=== PATIENT | female | born 1990 | race Two or more races ===

== ENCOUNTER 2019-12-28 11:03 | Outpatient (REF) | payer OTHER, SELFPAY ==
[2019-12-28 16:09] LABS: CT PCR NOT DETECTED (Not Detect.); NG PCR NOT DETECTED (Not Detect.)
[2019-12-29 09:49] LABS: BV Int Neg Control Negative (Negative); BV Int Pos Control Positive (Positive)
== END 2019-12-28 11:04 | disposition home or self-care (01) ==
LOC: HO.LAB 11:03
PROVIDERS: Visit Provider Advanced Practice Midwife
DX: N89.8 Other specified noninflammatory disorders of vagina (principal); Z20.2 Contact with and (suspected) exposure to infections with a predominantly sexual mode of transmission; A60.00 Herpesviral infection of urogenital system, unspecified
CPT/HCPCS: 87480; 87491; 87510; 87591; 87660; 99213

== ENCOUNTER 2020-03-04 14:48 | Emergency (ER) | payer OTHER, SELFPAY ==
[2020-03-04 15:42] VITALS: BP 115/58; PULSE 71; RESP 16; TEMP 36.7; O2SAT 100; BMI 37.8
--- NOTE | 2020-03-04 17:24 | ED_ITS ---
HPI - Abdominal Pain General Chief Complaint: Abdominal Pain Stated Complaint: abd pain Time Seen by Provider: 03/04/20 16:43 Source: patient Mode of arrival: ambulatory Limitations: no limitations History of Present Illness HPI narrative: Left-sided/left upper quadrant abdominal pain MD elicited complaint: abdominal pain Pertinent past history: none Onset (ago): day(s) (4) Pain Consistency: constant Location: LUQ Severity: moderate Quality: stabbing Radiation: none Migration to: no migration Relieving factors: nothing Associated symptoms: denies other symptoms Related Data Home Medications Medication Instructions Recorded Confirmed levothyroxine 50 mcg tablet 50 mcg PO DAILY 12/28/19 03/09/20 Previous Rx's Medication Instructions Recorded valacyclovir 500 mg tablet 500 mg PO DAILY #30 tab 12/28/19 ibuprofen 800 mg PO Q8H PRN #20 tab 03/04/20 Allergies Allergy/AdvReac Type Severity Reaction Status Date / Time No Known Allergies Allergy Mild UNKNOWN Verified 03/09/20 09:18 Review of Systems Review of Systems Constitutional: No Weight loss, No Fever, No Chills, No Night Sweats, No Fatigue, No Malaise ENT/Mouth: No Hearing loss, No Ear Pain, No Nasal Congestion, No Sinus Pain, No Hoarseness, No sore throat, No Rhinorrhea, No Swallowing Difficulty Eyes: No Eye Pain, No Swelling, No Redness, No Foreign Body, No Discharge, No Vision Changes Cardiovascular: No Chest Pain, No SOB, No Dyspnea on Exertion, No Orthopnea, No Edema, No Palpitations Respiratory: No Cough, No Sputum, No Wheezing Gastrointestinal: As noted HPI, No Hematochezia, No Melena Genitourinary: no irregular bleeding, No Dysuria, No Urinary Frequency, No Hematuria, No Urinary Incontinence, No Urgency, No Flank Pain Musculoskeletal: No joint pain, No Myalgias, No Joint Swelling Skin: No Skin Lesions, No rash Neuro: No Weakness, No Numbness, No Paresthesias, No Loss of Consciousness, No Dizziness, No Headache Psych: No Social Issues Heme/Lymph: No Bruising, No Bleeding,No Lymphadenopathy Endocrine: No Polyuria, No Polydipsia, No Temperature Intolerance Yes all other systems are reviewed and are negative Physical Exam Vital Signs: Vital Signs: Last Vital Signs Temp 98.3 F 03/04/20 20:51 Pulse 69 03/04/20 20:51 Resp 16 03/04/20 20:51 BP 113/55 L 03/04/20 20:51 Pulse Ox 100 03/04/20 20:51 Body Mass Index 37.8 Reviewed Const: General: cooperative and healthy appearing; No acute distress or intoxicated appearing Nutritional Appearance: average body habitus Orientation/consciousness: patient oriented x3 HENMT: Head: Yes normal to inspection Ears: hearing grossly normal bilaterally Eyes: General: appearance normal, both eyes and all related structures Visual Valencia: normal visual valencia by confrontation Neck: Neck: Yes normal visual inspection, No positive Brudzinski's sign, No positive Kernig's sign and No tender Thyroid: Thyroid normal Chest: Chest palpation & inspection: normal inspection of the chest Resp: Effort & Inspection: normal respiratory effort Auscultation: clear to auscultation bilaterally Cardio: Jugular venous distension: no JVD Rhythm: regular rhythm Heart sounds: S1 normal heart sound present and S2 normal heart sound present GI: Inspection: Yes normal to inspection Palpation (GI): Soft to palpation and Tenderness to palpation present (GI) in the LUQ; with no rebound tenderness Percussion: Yes normal to percussion Auscultation: normal bowel sounds : General: Yes no CVA tenderness Back/Spine/Pelvis: Back: no CVA tenderness Skin: General skin exam: no rashes or lesions noted Neuro: General: patient oriented x3 Extrem: General: Yes normal to inspection Course Course Course Narrative: Labs overall stable. CT negative for acute pathology does show left-sided ovarian cyst. Retroverted uterus. Pain in the left upper quadrant unclear etiology. Mostly in the left upper quadrant does now reveal that she has some bowel issues in relation to having constipation. Advised to increase her fiber intake push fluids. OTC laxative. 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 States no other concern for STI as she has been tested and negative. Offers no complaint of vaginal discharge or bleeding. Will refer for outpatient follow-up. Stable for discharge. MDM - Abdominal Pain Differential Diagnosis Differential diagnosis: Likely abdominal pain, calculus of kidney, pancreatitis and renal colic; Unlikely aortic dissection, acute appendicitis, bowel perforation, constipation, diverticulitis, endometriosis, gastroenteritis, gastritis, mesenteric ischemia, ovarian cyst, peptic ulcer disease and small bowel obstruction Medical Records Attestation: I reviewed the patient's medical records. Lab Data Attestation: I reviewed the patient's lab results. Result diagrams: 03/04/20 18:10 03/04/20 18:10 Labs: Lab Results 03/04/20 03/04/20 03/04/20 Range/Units 18:09 18:10 18:10 WBC 7.0 (4.8-10.8) X10*3/uL RBC 4.73 (4.20-5.50) X10*6/uL Hgb 13.8 (12.0-16.0) g/dl Hct 41.4 (37-47) % MCV 87.5 (80-98) fL MCH 29.2 (27.0-33.0) pg MCHC 33.3 (31.0-35.0) g/dl RDW 13.0 (11.0-16.0) % Plt Count 230 (160-400) X10*3/uL MPV 10.8 (9.4-12.3) fL Immature Gran % (Auto) 0.1 (0.0-0.4) % Neut % (Auto) 51.3 (45-73) % Lymph % (Auto) 39.6 (20-40) % [place] % (Auto) 6.6 (2-11) % Eos % (Auto) 2.1 (0-4) % Baso % (Auto) 0.3 (0-2) % Lymph # (Auto) 2.8 (1.2-4.9) X10*3/uL [place] # (Auto) 0.5 (0.1-1.2) X10*3/uL Eos # (Auto) 0.2 (0.0-0.4) X10*3/uL Baso # (Auto) 0.0 (0.0-0.2) X10*3/uL Abs Immat Gran (auto) 0.01 (0.00-0.03) X10*3/uL Absolute Neuts (auto) 3.6 (2.0-8.3) X10*3/uL Absolute Nucleated RBC 0.000 (0.0-0.012) X10*3/uL Nucleated RBC % (auto) 0.0 (0.0-0.2) /100WBC PT 11.8 (10.8-13.0) SEC INR 1.0 (0.9-1.1) APTT 33.7 (24.1-38.0) SEC Sodium (135-145) mmol/L Potassium (3.3-5.1) mmol/l Chloride (96-108) mmol/L Carbon Dioxide (22-29) mmol/L Anion Gap (12-20) BUN (9-16) mg/dL Creatinine (0.5-1.4) mg/dL Estim Creat Clear Calc Estimated GFR Random Glucose (60-115) mg/dL Calcium (8.4-10.2) mg/dL Total Bilirubin (0.0-1.0) mg/dL AST (5-31) U/L ALT (0-31) U/L Alkaline Phosphatase (39-117) U/L Total Protein (6.5-8.0) g/dL Albumin (3.5-5.0) g/dL Urine Color YELLOW Urine Appearance CLEAR Urine pH 6.0 (5.0-8.0) Ur Specific [place] 1.020 (1.005-1.025) Urine Protein NEG (NEG-TRACE) MG/DL Urine Glucose (UA) NEG (NEG) MG/DL Urine Ketones NEG (NEG) MG/DL Urine Blood NEG (NEG) Urine Nitrite NEG (NEG) Ur Leukocyte Esterase NEG (NEG) Urine RBC 0-2 (0) /HPF Urine WBC 0 (0-4) /HPF Ur Squamous Epith Cells TRACE /LPF Urine Bacteria TRACE /LPF Urine Test NEGATIVE (NEGATIVE) 03/04/20 Range/Units 18:10 WBC (4.8-10.8) X10*3/uL RBC (4.20-5.50) X10*6/uL Hgb (12.0-16.0) g/dl Hct (37-47) % MCV (80-98) fL MCH (27.0-33.0) pg MCHC (31.0-35.0) g/dl RDW (11.0-16.0) % Plt Count (160-400) X10*3/uL MPV (9.4-12.3) fL Immature Gran % (Auto) (0.0-0.4) % Neut % (Auto) (45-73) % Lymph % (Auto) (20-40) % [place] % (Auto) (2-11) % Eos % (Auto) (0-4) % Baso % (Auto) (0-2) % Lymph # (Auto) (1.2-4.9) X10*3/uL [place] # (Auto) (0.1-1.2) X10*3/uL Eos # (Auto) (0.0-0.4) X10*3/uL Baso # (Auto) (0.0-0.2) X10*3/uL Abs Immat Gran (auto) (0.00-0.03) X10*3/uL Absolute Neuts (auto) (2.0-8.3) X10*3/uL Absolute Nucleated RBC (0.0-0.012) X10*3/uL Nucleated RBC % (auto) (0.0-0.2) /100WBC PT (10.8-13.0) SEC INR (0.9-1.1) APTT (24.1-38.0) SEC Sodium 140 (135-145) mmol/L Potassium 4.0 (3.3-5.1) mmol/l Chloride 106 (96-108) mmol/L Carbon Dioxide 26 (22-29) mmol/L Anion Gap 12 (12-20) BUN 10 (9-16) mg/dL Creatinine 0.71 (0.5-1.4) mg/dL Estim Creat Clear Calc 119.9 Estimated GFR > 60 Random Glucose 91 (60-115) mg/dL Calcium 8.9 (8.4-10.2) mg/dL Total Bilirubin 0.8 (0.0-1.0) mg/dL AST 15 (5-31) U/L ALT 21 (0-31) U/L Alkaline Phosphatase 69 (39-117) U/L Total Protein 7.1 (6.5-8.0) g/dL Albumin 4.4 (3.5-5.0) g/dL Urine Color Urine Appearance Urine pH (5.0-8.0) Ur Specific [place] (1.005-1.025) Urine Protein (NEG-TRACE) MG/DL Urine Glucose (UA) (NEG) MG/DL Urine Ketones (NEG) MG/DL Urine Blood (NEG) Urine Nitrite (NEG) Ur Leukocyte Esterase (NEG) Urine RBC (0) /HPF Urine WBC (0-4) /HPF Ur Squamous Epith Cells /LPF Urine Bacteria /LPF Urine Test (NEGATIVE) Imaging Data -abdominal/pelvic abdominal CT with IV contrast: Radiologist's impression: [address] [address] [address] Scan Report Signed Patient: Yolanda Murdokc#: [id number] : 1990Acct:[id number] Age/Sex: 30 / FADM Date: 03/04/20 Loc: HO.ED Attending Dr: Ordering Physician: Aman Gonzalez NP Date of Service: 03/04/20 Procedure(s): CT abdomen pelvis w con Accession Number(s): [id number] cc: Aman Gonzalez NP~ EXAMINATION: CT ABDOMEN AND PELVIS WITH CONTRAST CLINICAL INFORMATION: Left-sided abdominal pain. COMPARISON: None TECHNIQUE: Multidetector volumetric images were obtained from the superior aspect of the liver through the pubic symphysis following administration 85 mL of Omnipaque 350 intravenous contrast. Sagittal and coronal reformatted images were obtained on the technologist's workstation. Oral contrast: No This CT examination was performed using dose optimization techniques as appropriate, variously including the following: *Automated exposure control *Adjustment of mA and/or kV according to patient size (this includes techniques or standardized protocols for targeted exams where dose is matched to indication/reason for exam; i.e. extremities or head) *Use of iterative reconstruction technique DLP: 788 mGy-cm FINDINGS: LUNG BASES: The visualized lung bases are unremarkable. LIVER, GALLBLADDER, AND BILIARY TREE: The liver is normal in size, shape, and attenuation. There are coarse calcifications along the dome of right hepatic lobe without. No focal lesion seen. There is no intrahepatic ductal dilatation. The gallbladder is unremarkable with no evidence of radiopaque gallstones, gallbladder wall thickening, or obvious pericholecystic inflammatory changes. PANCREAS: Unremarkable. SPLEEN: Unremarkable. ADRENAL GLANDS: Unremarkable. KIDNEYS AND URETERS: The kidneys are normal in size, shape, and attenuation. No hydronephrosis, hydroureter, or calculi seen. No perinephric stranding. BLADDER: Unremarkable. GASTROINTESTINAL TRACT: There is scattered stool and gas seen throughout the colon without any significant distention. The small bowel loops are normal caliber. Appendix is normal caliber. ABDOMINAL WALL: No significant hernia is appreciated. LYMPH NODES: Normal. VASCULAR: Unremarkable. PELVIC VISCERA: The uterus is retroverted. There is small left ovarian 1.5 cm cyst. There is no abnormal pelvic or inguinal lymph nodes. There is no free fluid in the cul-de-sac. OSSEOUS STRUCTURES: Unremarkable. CT/CT abdomen pelvis w con IMPRESSION: 1.5 cm left ovarian cyst. Retroverted uterus. There is no radiopaque urolith or hydroureteronephrosis. Dictated By:JASON YUSUF MD Signed By:<Electronically signed by JASON YUSUF MD in OV>03/04/202004 DD/ 53 TD/TT: Tank Refinisher: [facility] [place] Discharge Plan Discharge Clinical Impression: Abdominal pain, Ovarian cyst Patient Disposition: Home, Self-Care Instructions: Ovarian Cyst (ED), Abdominal Pain (ED) Prescriptions: New ibuprofen 800 mg tablet 800 mg PO Q8H PRN (Reason: pain) Qty: 20 RF: 0 No Action levothyroxine 50 mcg tablet 50 mcg PO DAILY RF: 0 valacyclovir [Valtrex] 500 mg tablet 500 mg PO DAILY Qty: 30 RF: 12 Referrals: Physician,Unknown [Primary Care Provider] - 1 week Issac Mjeía MD [Physician] - 2 weeks Interventions: ED Discharge Assessment Last Done: 03/04/20 20:52 Discharge Date/Time: 03/04/20 20:55 Print Language: Romanian [facility] Past Medical History Medical History Genital herpes Hypothyroidism Family History Family History Mother Heart disease Cervical cancer CVD (cardiovascular disease) Maternal Grandmother Diabetes mellitus Cervical cancer Heart disease CVD (cardiovascular disease) Social History Social History Alcohol intake: never Smoking Status: Unknown if ever smoked Gender identity: female
[2020-03-04 17:58] VITALS: BP 106/56; PULSE 70; RESP 16; TEMP 36.7; O2SAT 100
[2020-03-04 18:17] LABS: Basophils Percent Auto 0.3 % (0-2); Eosinophils Absolute Auto 0.2 X10*3/uL (0.0-0.4); Eosinophils Percent Auto 2.1 % (0-4); Hematocrit 41.4 % (37-47); Hemoglobin 13.8 g/dl (12.0-16.0); Imm Gran Abs Auto 0.01 X10*3/uL (0.00-0.03); Imm Gran Pct Auto 0.1 % (0.0-0.4); Lymphocytes Absolute Auto 2.8 X10*3/uL (1.2-4.9); Lymphocytes Percent Auto 39.6 % (20-40); MANUAL DIFF FLAG NO; Mean Corpuscular HGB Conc 33.3 g/dl (31.0-35.0); Mean Corpuscular Hemoglobin 29.2 pg (27.0-33.0); Mean Corpuscular Volume 87.5 fL (80-98); Mean Platelet Volume 10.8 fL (9.4-12.3); Monocytes Absolute Auto 0.5 X10*3/uL (0.1-1.2); Monocytes Percent Auto 6.6 % (2-11); Neutrophils Absolute Auto 3.6 X10*3/uL (2.0-8.3); Neutrophils Percent Auto 51.3 % (45-73); Platelet Count 230 X10*3/uL (160-400); Red Blood Count 4.73 X10*6/uL (4.20-5.50)
[2020-03-04 18:23] LABS: Appearance Urine CLEAR; Color Urine YELLOW; Glucose Urine UA NEG (NEG); Leukocyte Esterase Urine NEG (NEG); Nitrite Urine NEG (NEG); Urine Blood NEG (NEG); Urine Ketones NEG (NEG); Urine Protein NEG (NEG-TRACE)
[2020-03-04 18:26] LABS: UPreg QC Valid YES; Urine Pregnancy NEGATIVE (NEGATIVE)
[2020-03-04 18:27] LABS: Prothrombin Time 11.8 SEC (10.8-13.0)
[2020-03-04 18:29] LABS: Partial Thromboplastin Time 33.7 SEC (24.1-38.0)
[2020-03-04 18:39] LABS: Bacteria Urine TRACE /LPF; RBC Urine 0-2 /HPF (0); Squamous Epithelial Cell Urine TRACE /LPF; WBC Urine 0 /HPF (0-4)
[2020-03-04 18:40] LABS: Alanine Aminotransferase 21 U/L (0-31); Albumin Level 4.4 g/dL (3.5-5.0); Alkaline Phosphatase 69 U/L (39-117); Anion Gap 12 (12-20); Aspartate Amino Transferase 15 U/L (5-31); Bilirubin Total 0.8 mg/dL (0.0-1.0); Blood Urea Nitrogen 10 mg/dL (9-16); Calcium 8.9 mg/dL (8.4-10.2); Carbon Dioxide 26 mmol/L (22-29); Chloride 106 mmol/L (96-108); Creatinine Clr Calc Pharmacy 119.9; Estimated Glomerular Filt Rate > 60; Glucose Random 91 mg/dL (60-115); Sodium 140 mmol/L (135-145); Total Protein 7.1 g/dL (6.5-8.0)
--- NOTE | 2020-03-04 18:54 | CT_ITS ---
EXAMINATION: CT ABDOMEN AND PELVIS WITH CONTRAST CLINICAL INFORMATION: Left-sided abdominal pain. COMPARISON: None TECHNIQUE: Multidetector volumetric images were obtained from the superior aspect of the liver through the pubic symphysis following administration 85 mL of Omnipaque 350 intravenous contrast. Sagittal and coronal reformatted images were obtained on the technologist's workstation. Oral contrast: No This CT examination was performed using dose optimization techniques as appropriate, variously including the following: *Automated exposure control *Adjustment of mA and/or kV according to patient size (this includes techniques or standardized protocols for targeted exams where dose is matched to indication/reason for exam; i.e. extremities or head) *Use of iterative reconstruction technique DLP: 788 mGy-cm FINDINGS: LUNG BASES: The visualized lung bases are unremarkable. LIVER, GALLBLADDER, AND BILIARY TREE: The liver is normal in size, shape, and attenuation. There are coarse calcifications along the dome of right hepatic lobe without. No focal lesion seen. There is no intrahepatic ductal dilatation. The gallbladder is unremarkable with no evidence of radiopaque gallstones, gallbladder wall thickening, or obvious pericholecystic inflammatory changes. PANCREAS: Unremarkable. SPLEEN: Unremarkable. ADRENAL GLANDS: Unremarkable. KIDNEYS AND URETERS: The kidneys are normal in size, shape, and attenuation. No hydronephrosis, hydroureter, or calculi seen. No perinephric stranding. BLADDER: Unremarkable. GASTROINTESTINAL TRACT: There is scattered stool and gas seen throughout the colon without any significant distention. The small bowel loops are normal caliber. Appendix is normal caliber. ABDOMINAL WALL: No significant hernia is appreciated. LYMPH NODES: Normal. VASCULAR: Unremarkable. PELVIC VISCERA: The uterus is retroverted. There is small left ovarian 1.5 cm cyst. There is no abnormal pelvic or inguinal lymph nodes. There is no free fluid in the cul-de-sac. OSSEOUS STRUCTURES: Unremarkable. CT/CT abdomen pelvis w con IMPRESSION: 1.5 cm left ovarian cyst. Retroverted uterus. There is no radiopaque urolith or hydroureteronephrosis.
[2020-03-04] MEDS: iohexoL 350 MG/ML 100 ML INFUS..BTL IV (19:46)
[2020-03-04 20:51] VITALS: BP 113/55; PULSE 69; RESP 16; TEMP 36.8; O2SAT 100
== END 2020-03-04 20:55 | disposition home or self-care (01) ==
PROVIDERS: Nurse Practitioner Primary Care; Emergency Provider Emergency Medicine
DX: R10.9 Unspecified abdominal pain (principal); N83.202 Unspecified ovarian cyst, left side
CPT/HCPCS: 36415; 74177; 80053; 81001; 81025; 85025; 85610; 85730; 99284; Q9967

== ENCOUNTER 2020-03-09 09:08 | Outpatient (REF) | payer OTHER, SELFPAY ==
[2020-03-10 13:11] LABS: BV Int Neg Control Negative (Negative); BV Int Pos Control Positive (Positive)
[2020-03-10 19:57] LABS: C. trachomatis RNA TMA NOT DETECTED (NOT DETECTED); N. gonorrhoeae RNA TMA NOT DETECTED (NOT DETECTED)
== END 2020-03-09 09:09 | disposition home or self-care (01) ==
LOC: HO.LAB 09:08
PROVIDERS: Visit Provider Obstetrics & Gynecology
DX: R10.2 Pelvic and perineal pain (principal); B37.3 Candidiasis of vulva and vagina; N89.8 Other specified noninflammatory disorders of vagina
CPT/HCPCS: 87480; 87491; 87510; 87591; 87660; 99212

== ENCOUNTER 2020-05-04 09:08 | Outpatient (REF) | payer OTHER, SELFPAY ==
[2020-05-04 11:41] LABS: Hematocrit 42.4 % (37-47); Hemoglobin 14.1 g/dl (12.0-16.0); Mean Corpuscular HGB Conc 33.3 g/dl (31.0-35.0); Mean Corpuscular Volume 87.2 fL (80-98); Mean Platelet Volume 11.1 fL (9.4-12.3); Platelet Count 199 X10*3/uL (160-400); Red Blood Count 4.86 X10*6/uL (4.20-5.50); Red Cell Distribution Width 12.8 % (11.0-16.0)
[2020-05-04 12:18] LABS: Glucose Fasting 84 mg/dL (60-99)
[2020-05-05 08:09] LABS: Syphilis Screen Nonreactive (Nonreactive)
[2020-05-05 08:13] LABS: HBsAGNum1 0.17 S/CO (0.00-0.99); Hepatitis B Surface Antigen Negative (Negative); ~HepC Num1 0.15 S/CO (0.00-0.79); ~Hepatitis C Antibody Nonreactive (Nonreactive)
[2020-05-05 08:31] LABS: HIV AB/AG Nonreactive (Nonreactive); HIV Num 1 0.08 S/CO (0.00-0.99)
[2020-05-05 08:45] LABS: BV Int Neg Control Negative (Negative); BV Int Pos Control Positive (Positive)
[2020-05-05 12:42] LABS: C. trachomatis RNA TMA NOT DETECTED (NOT DETECTED); N. gonorrhoeae RNA TMA NOT DETECTED (NOT DETECTED)
[2020-05-09 07:32] LABS: HPV mRNA E6/E7 rflx Not Detected (Not Detected)
== END 2020-05-04 09:09 | disposition home or self-care (01) ==
LOC: HO.LAB 09:08
PROVIDERS: Visit Provider Advanced Practice Midwife
DX: Z01.419 Encounter for gynecological examination (general) (routine) without abnormal findings (principal); E06.3 Autoimmune thyroiditis; Z20.2 Contact with and (suspected) exposure to infections with a predominantly sexual mode of transmission; Z87.42 Personal history of other diseases of the female genital tract; Z79.899 Other long term (current) drug therapy
CPT/HCPCS: 36415; 82947; 84443; 85027; 86780; 86803; 87340; 87389; 87480; 87491; 87510; 87591; 87624; 87660; 88142

== ENCOUNTER 2020-05-06 17:30 | Emergency (ER) | payer OTHER, SELFPAY ==
[2020-05-06 17:33] VITALS: BP 104/52; PULSE 72; RESP 16; TEMP 36.7; O2SAT 98; BMI 37.8
--- NOTE | 2020-05-06 18:46 | ED.GENADULT ---
HPI - General Adult General Chief complaint: General Medical Stated complaint: Mouth pain Time Seen by Provider: 05/06/20 18:39 Source: patient Mode of arrival: ambulatory Limitations: no limitations History of Present Illness HPI narrative: 30 yo female here with complaints of tongue burning numbness x 2 weeks. No new medications/products/foods/detergents. Does take levoxl for hypothyroidism and has been compliant with this. No pain, fevers, chills, sore throat, cough, SOB, vomiting, diarrhea, abdominal pain. Related Data Home Medications Medication Instructions Recorded Confirmed levothyroxine 50 mcg tablet 50 mcg PO DAILY 12/28/19 05/04/20 Previous Rx's Medication Instructions Recorded valacyclovir 500 mg tablet 500 mg PO DAILY #30 tab 12/28/19 ibuprofen 800 mg PO Q8H PRN #20 tab 03/04/20 metronidazole 500 mg tablet 500 mg PO BID 7 Days #14 tab 03/24/20 clindamycin phosphate 2 % vaginal 1 appful VAGINAL BEDTIME 7 Days 04/13/20 cream #40 g Magic Mouthwash 5 ml PO TID PRN #240 ml 05/06/20 Diphen/Lido/Antacid 1:1:1 Allergies Allergy/AdvReac Type Severity Reaction Status Date / Time No Known Allergies Allergy Mild UNKNOWN Verified 05/04/20 09:41 Review of Systems Review of Systems: Yes all other systems are reviewed and are negative Constitutional: Constitutional: Reports no additional constitutional complaints, Denies body ache(s), Denies chills, Denies fever(s), Denies headache(s) and Denies weakness Eyes: Eyes: Reports no additional eye complaints and Denies change in vision ENT: Reports system reviewed and no additional complaints, except as documented, Denies dizziness, Denies headache(s), Denies nasal congestion, Denies nasal discharge and Denies neck pain Cardiovascular: Cardiovascular: Reports no additional cardiovascular complaints, Denies chest pain, Denies leg edema and Denies dyspnea Respiratory: Respiratory: Reports no additional respiratory complaints, Denies cough and Denies dyspnea Gastrointestinal: Gastrointestinal: Reports no additional gastrointestinal complaints, Denies abdominal pain, Denies diarrhea, Denies nausea and Denies vomiting Genitourinary: Genitourinary: Reports no additional female genitourinary complaints and Denies urinary incontinence Musculoskeletal: Musculoskeletal: Reports no additional musculoskeletal complaints, Denies back pain, Denies arthralgias, Denies joint swelling, Denies neck pain, Denies numbness and Denies tingling Integumentary/Breasts: Skin/Breast: Reports system reviewed and no additional complaints, except as docu and Denies rash Neurologic: Reports system reviewed and no additional complaints, except as documented, Denies Abnormal speech present, Denies dizziness, Denies headache(s), Denies numbness, Denies tingling and Denies weakness PMF Past Medical History Attestation statement: The following information was validated with the patient. Source: old records reviewed and nursing notes reviewed Medical History Genital herpes Hypothyroidism Family History Family History Mother Heart disease Cervical cancer CVD (cardiovascular disease) Maternal Grandmother Diabetes mellitus Cervical cancer Heart disease CVD (cardiovascular disease) Social History Social History Alcohol intake: never Smoking Status: Never smoker Use of substances other than those prescribed or required for medical reasons: No Advance Directives: No Advance Directives Information Provided: Yes Gender identity: female Physical Exam Vital Signs: Vital Signs: Last Vital Signs Temp 98.2 F 05/06/20 20:28 Pulse 67 05/06/20 20:28 Resp 16 05/06/20 20:28 BP 108/57 L 05/06/20 20:28 Pulse Ox 100 05/06/20 20:28 Body Mass Index 37.8 Const: General: cooperative, healthy appearing, comfortable and no acute distress Orientation/consciousness: patient oriented x3 Limitations: no limitations HENMT: Head: Yes normal to inspection Ears: hearing grossly normal bilaterally General nose exam: Normal external nose present Face and sinus: Yes normal facial exam Mouth: Normal oral and palatal mucosa present Teeth and gingiva: dentition normal Throat: Yes posterior oropharynx normal, Yes tonsils normal, Yes uvula midline and No peritonsillar mass Eyes: General: appearance normal, both eyes and all related structures Pupils: Equal, round and reactive pupils present Neck: Neck: Yes normal visual inspection Chest: Chest palpation & inspection: normal inspection of the chest Resp: Effort & Inspection: normal respiratory effort Auscultation: clear to auscultation bilaterally Cardio: Rate: regular rate Rhythm: regular rhythm Peripheral pulses: Peripheral pulses 2+ throughout GI: Inspection: Yes normal to inspection Palpation (GI): Soft to palpation and nontender Auscultation: normal bowel sounds Back/Spine/Pelvis: Thoracic/Lumbar Spine: thoracic and lumbar spine normal to inspection Skin: General skin exam: no rashes or lesions noted Neuro: General: patient oriented x3, no focal motor deficits and normal sensation to monofilament Cranial nerves: Yes Equal, round and reactive pupils present Cognition (Neuro): normal cognition Speech: No Abnormal speech present Gait exam (Neuro): Normal gait present Motor exam (neuro): 5/5 motor strength present throughout Extrem: General: Yes normal to inspection Course Course Course Narrative: Oral paresthesias x 2 weeks. Will check labs. 2039-Labs unremarkable. Improved with GI cocktail. No neuro deficits. No angioedema, exam is benign. Stable vital signs. Reviewed worrisome signs/symptoms with patient and when to seek additional care. Comfortable with dsicharge home. Medical Decision Making Medical Records Medical records reviewed: Yes I reviewed the patient's medical records. Lab Data Lab results reviewed: Yes I reviewed the patient's lab results. Result diagrams: 05/06/20 19:21 05/06/20 19:21 Labs: Lab Results 05/06/20 05/06/20 Range/Units 19:21 19:21 WBC 6.8 (4.8-10.8) X10*3/uL RBC 4.74 (4.20-5.50) X10*6/uL Hgb 13.9 (12.0-16.0) g/dl Hct 41.1 (37-47) % MCV 86.7 (80-98) fL MCH 29.3 (27.0-33.0) pg MCHC 33.8 (31.0-35.0) g/dl RDW 12.9 (11.0-16.0) % Plt Count 196 (160-400) X10*3/uL MPV 10.8 (9.4-12.3) fL Immature Gran % (Auto) 0.3 (0.0-0.4) % Neut % (Auto) 49.0 (45-73) % Lymph % (Auto) 39.4 (20-40) % [place] % (Auto) 7.6 (2-11) % Eos % (Auto) 3.4 (0-4) % Baso % (Auto) 0.3 (0-2) % Lymph # (Auto) 2.7 (1.2-4.9) X10*3/uL [place] # (Auto) 0.5 (0.1-1.2) X10*3/uL Eos # (Auto) 0.2 (0.0-0.4) X10*3/uL Baso # (Auto) 0.0 (0.0-0.2) X10*3/uL Abs Immat Gran (auto) 0.02 (0.00-0.03) X10*3/uL Absolute Neuts (auto) 3.4 (2.0-8.3) X10*3/uL Absolute Nucleated RBC 0.000 (0.0-0.012) X10*3/uL Nucleated RBC % (auto) 0.0 (0.0-0.2) /100WBC Sodium 139 (135-145) mmol/L Potassium 3.7 (3.3-5.1) mmol/L Chloride 107 (96-108) mmol/L Carbon Dioxide 27 (22-29) mmol/L Anion Gap 9 L (12-20) BUN 10 (9-16) mg/dL Creatinine 0.80 (0.5-1.4) mg/dL Estim Creat Clear Calc 106.3 Estimated GFR > 60 Random Glucose 83 (60-115) mg/dL Calcium 8.9 (8.4-10.2) mg/dL Magnesium 2.1 (1.6-2.6) mg/dL Total Bilirubin 0.6 (0.0-1.0) mg/dL Direct Bilirubin 0.2 (0.0-0.5) mg/dL AST 16 (5-31) U/L ALT 22 (0-31) U/L Alkaline Phosphatase 63 (39-117) U/L Total Protein 7.0 (6.5-8.0) g/dL Albumin 4.3 (3.5-5.0) g/dL Discharge Plan Discharge Clinical Impression: Numbness of tongue Patient Disposition: Home, Self-Care Instructions: Paresthesia (ED) Additional Instructions: Your labs today looked re-assuring. You may need additional blood work and testing done. Please call your PCP for a follow-up appointment as discussed Prescriptions: New Magic Mouthwash Diphen/Lido/Antacid 1:1:1 240 mL suspension 5 ml PO TID PRN (Reason: mouth pain) Qty: 240 RF: 0 No Action metronidazole [Flagyl] 500 mg tablet 500 mg PO BID 7 Days Qty: 14 RF: 0 ibuprofen 800 mg tablet 800 mg PO Q8H PRN (Reason: pain) Qty: 20 RF: 0 levothyroxine 50 mcg tablet 50 mcg PO DAILY RF: 0 valacyclovir [Valtrex] 500 mg tablet 500 mg PO DAILY Qty: 30 RF: 12 clindamycin phosphate 2 % cream 1 appful vaginal BEDTIME 7 Days Qty: 40 RF: 0 Referrals: Physician,Unknown [Primary Care Provider] - 2 days Interventions: ED Discharge Assessment Last Done: 05/06/20 20:30 Discharge Date/Time: 05/06/20 20:30
[2020-05-06 19:26] LABS: MANUAL DIFF FLAG NO
[2020-05-06 19:28] LABS: Basophils Percent Auto 0.3 % (0-2); Eosinophils Absolute Auto 0.2 X10*3/uL (0.0-0.4); Eosinophils Percent Auto 3.4 % (0-4); Hematocrit 41.1 % (37-47); Hemoglobin 13.9 g/dl (12.0-16.0); Imm Gran Abs Auto 0.02 X10*3/uL (0.00-0.03); Imm Gran Pct Auto 0.3 % (0.0-0.4); Lymphocytes Absolute Auto 2.7 X10*3/uL (1.2-4.9); Lymphocytes Percent Auto 39.4 % (20-40); Mean Corpuscular HGB Conc 33.8 g/dl (31.0-35.0); Mean Corpuscular Hemoglobin 29.3 pg (27.0-33.0); Mean Corpuscular Volume 86.7 fL (80-98); Mean Platelet Volume 10.8 fL (9.4-12.3); Monocytes Absolute Auto 0.5 X10*3/uL (0.1-1.2); Monocytes Percent Auto 7.6 % (2-11); Neutrophils Absolute Auto 3.4 X10*3/uL (2.0-8.3); Platelet Count 196 X10*3/uL (160-400); Red Blood Count 4.74 X10*6/uL (4.20-5.50); Red Cell Distribution Width 12.9 % (11.0-16.0); White Blood Count 6.8 X10*3/uL (4.8-10.8)
[2020-05-06] MEDS: Lidocaine HCl Viscous 2 % 15 ML SOLUTION MUCOUS MEM (19:34)
[2020-05-06] MEDS: Magnesium Hydrox/Alum Hydrox 30 ML ORAL.SUSP PO (19:34)
[2020-05-06 20:02] LABS: Alanine Aminotransferase 22 U/L (0-31); Albumin Level 4.3 g/dL (3.5-5.0); Alkaline Phosphatase 63 U/L (39-117); Anion Gap 9 (12-20); Aspartate Amino Transferase 16 U/L (5-31); Bilirubin Direct 0.2 mg/dL (0.0-0.5); Bilirubin Total 0.6 mg/dL (0.0-1.0); Blood Urea Nitrogen 10 mg/dL (9-16); Calcium 8.9 mg/dL (8.4-10.2); Carbon Dioxide 27 mmol/L (22-29); Chloride 107 mmol/L (96-108); Creatinine Clr Calc Pharmacy 106.3; Estimated Glomerular Filt Rate > 60; Glucose Random 83 mg/dL (60-115); Magnesium 2.1 mg/dL (1.6-2.6); Potassium 3.7 mmol/L (3.3-5.1); Sodium 139 mmol/L (135-145)
[2020-05-06 20:28] VITALS: BP 108/57; PULSE 67; RESP 16; TEMP 36.8; O2SAT 100
== END 2020-05-06 20:30 | disposition home or self-care (01) ==
PROVIDERS: Nurse Practitioner Family; Emergency Provider Internal Medicine
DX: K13.79 Other lesions of oral mucosa (principal); R20.0 Anesthesia of skin
CPT/HCPCS: 36415; 80048; 80076; 83735; 85025; 99283; 99284

== ENCOUNTER → 2020-05-11 09:12 | Outpatient (BNVA) | payer OTHER, SELFPAY | PROVIDERS: Visit Provider Advanced Practice Midwife ==

== ENCOUNTER 2020-10-20 13:08 | Outpatient (REF) | payer OTHER, SELFPAY ==
[2020-10-20 15:11] LABS: TSH reflex Free T4 13.03 uIU/mL (0.32-4.0)
[2020-10-20 15:43] LABS: Free T4 (Free Thyroxine) 0.82 ng/dL (0.71-1.85)
[2020-10-21 13:01] LABS: Prolactin 7.5 ng/mL
[2020-10-22 11:58] LABS: BV Int Neg Control Negative (Negative); BV Int Pos Control Positive (Positive)
[2020-10-23 20:57] LABS: DHEA Sulfate 193 mcg/dL (18-391)
[2020-10-26 12:37] LABS: Testosterone, Free 5.5 pg/mL (0.1-6.4); Testosterone, Total 57 ng/dL (2-45)
== END 2020-10-20 13:09 | disposition home or self-care (01) ==
LOC: HO.LAB 13:08
PROVIDERS: Visit Provider Advanced Practice Midwife
DX: N89.8 Other specified noninflammatory disorders of vagina (principal); L68.0 Hirsutism; L70.9 Acne, unspecified; N92.6 Irregular menstruation, unspecified; A60.00 Herpesviral infection of urogenital system, unspecified
CPT/HCPCS: 36415; 82627; 83498; 84146; 84402; 84403; 84439; 84443; 87255; 87480; 87510; 87660; 99212

== ENCOUNTER → 2020-11-03 09:11 | Outpatient (BNVA) | payer OTHER, SELFPAY | PROVIDERS: Visit Provider Advanced Practice Midwife ==

== ENCOUNTER 2020-11-09 08:50 | Outpatient (REF) | payer OTHER, SELFPAY ==
[2020-11-09 15:51] LABS: CT PCR NOT DETECTED (Not Detect.); NG PCR NOT DETECTED (Not Detect.)
[2020-11-10 11:29] LABS: BV Int Neg Control Negative (Negative); BV Int Pos Control Positive (Positive)
== END 2020-11-09 08:51 | disposition home or self-care (01) ==
LOC: HO.LAB 08:50
PROVIDERS: Visit Provider Obstetrics & Gynecology
DX: Z11.3 Encounter for screening for infections with a predominantly sexual mode of transmission (principal); N76.0 Acute vaginitis
CPT/HCPCS: 87480; 87491; 87510; 87591; 87660; 99212

== ENCOUNTER 2021-03-26 14:51 | Outpatient (REF) | payer OTHER, SELFPAY ==
[2021-03-26 16:24] LABS: Syphilis Screen Nonreactive (Nonreactive)
[2021-03-27 02:01] LABS: CT PCR NOT DETECTED (Not Detect.); NG PCR NOT DETECTED (Not Detect.)
[2021-03-27 09:10] LABS: HIV AB/AG Nonreactive (Nonreactive); HIV Num 1 0.08 S/CO (0.00-0.99); Hepatitis B Surface Antigen Negative (Negative); ~HepC Num1 0.19 S/CO (0.00-0.79); ~Hepatitis C Antibody Nonreactive (Nonreactive)
[2021-03-27 09:19] LABS: BV Int Neg Control Negative (Negative); BV Int Pos Control Positive (Positive)
== END 2021-03-26 14:52 | disposition home or self-care (01) ==
LOC: HO.LAB 14:51
PROVIDERS: Visit Provider Obstetrics & Gynecology
DX: Z01.419 Encounter for gynecological examination (general) (routine) without abnormal findings (principal); N89.8 Other specified noninflammatory disorders of vagina; B37.3 Candidiasis of vulva and vagina; E28.2 Polycystic ovarian syndrome; A60.00 Herpesviral infection of urogenital system, unspecified; E03.9 Hypothyroidism, unspecified; Z11.3 Encounter for screening for infections with a predominantly sexual mode of transmission; Z11.8 Encounter for screening for other infectious and parasitic diseases; Z11.4 Encounter for screening for human immunodeficiency virus [HIV]; Z11.59 Encounter for screening for other viral diseases
CPT/HCPCS: 36415; 86780; 86803; 87340; 87389; 87480; 87491; 87510; 87591; 87660; 99212

== ENCOUNTER 2021-05-07 10:04 | Outpatient (REF) | payer OTHER, SELFPAY ==
[2021-05-08 08:50] LABS: BV Int Neg Control Negative (Negative); BV Int Pos Control Positive (Positive)
[2021-05-12 02:02] LABS: HPV 16 RNA NOT DETECTED (NOT DETECTED); HPV mRNA E6/E7 rflx Detected (Not Detected)
== END 2021-05-07 10:05 | disposition home or self-care (01) ==
LOC: HO.LAB 10:04
PROVIDERS: Visit Provider Advanced Practice Midwife
DX: Z01.419 Encounter for gynecological examination (general) (routine) without abnormal findings (principal); Z11.51 Encounter for screening for human papillomavirus (HPV); Z87.42 Personal history of other diseases of the female genital tract
CPT/HCPCS: 87480; 87510; 87624; 87625; 87660; 88142

== ENCOUNTER 2021-08-06 09:58 | Outpatient (REF) | payer OTHER, SELFPAY | END 2021-08-06 09:59 | disposition home or self-care (01) | LOC: HO.LAB 09:58 | PROVIDERS: Visit Provider Obstetrics & Gynecology | DX: R87.612 Low grade squamous intraepithelial lesion on cytologic smear of cervix (LGSIL) (principal); Z32.02 Encounter for pregnancy test, result negative | CPT/HCPCS: 57454; 81025; 88305 ==

== ENCOUNTER → 2021-08-28 11:50 | Outpatient (BNVA) | payer OTHER, SELFPAY | PROVIDERS: Visit Provider Obstetrics & Gynecology | DX: R87.612 Low grade squamous intraepithelial lesion on cytologic smear of cervix (LGSIL) (principal) | CPT/HCPCS: 99212 ==

== ENCOUNTER 2021-12-27 14:57 | Outpatient (REF) | payer OTHER, SELFPAY ==
[2021-12-28 09:07] LABS: BV Int Neg Control Negative (Negative); BV Int Pos Control Positive (Positive)
== END 2021-12-27 14:58 | disposition home or self-care (01) ==
LOC: HO.LNP 14:57
PROVIDERS: Visit Provider Advanced Practice Midwife
DX: Z11.3 Encounter for screening for infections with a predominantly sexual mode of transmission (principal); L29.2 Pruritus vulvae; N76.0 Acute vaginitis
CPT/HCPCS: 87480; 87510; 87660; 99212

== ENCOUNTER 2022-05-08 09:01 | Emergency (ER) | payer OTHER, SELFPAY ==
--- NOTE | ~2022-05-08 | CT_ITS ---
EXAMINATION: CT ABDOMEN AND PELVIS WITHOUT CONTRAST CLINICAL INFORMATION: Left lower quadrant COMPARISON: CT 03/04/2020 TECHNIQUE: Multidetector volumetric imaging was performed from the superior aspect of the liver through the pubic symphysis. Sagittal and coronal reformatted images were obtained on the technologist's workstation. This CT examination was performed using dose optimization techniques as appropriate, variously including the following: *Automated exposure control *Adjustment of mA and/or kV according to patient size (this includes techniques or standardized protocols for targeted exams where dose is matched to indication/reason for exam; i.e. extremities or head) *Use of iterative reconstruction technique DLP: 745 mGy-cm FINDINGS: LUNG BASES: The visualized lung bases are unremarkable. LIVER, GALLBLADDER, AND BILIARY TREE: The liver is normal in size, shape, and attenuation. Clustered area of calcifications is seen just beneath the dome of the right hemidiaphragm. No focal solid hepatic lesion or biliary ductal dilatation is present. The gallbladder is contracted and contains gallstones without obvious pericholecystic inflammatory changes. PANCREAS: Unremarkable. SPLEEN: Unremarkable. ADRENAL GLANDS: Unremarkable. KIDNEYS AND URETERS: The kidneys are normal in size, shape, and attenuation. No hydronephrosis, hydroureter, or calculi seen. No perinephric stranding. BLADDER: Unremarkable. GASTROINTESTINAL TRACT: The small and large bowel are unremarkable. The appendix is unremarkable. ABDOMINAL WALL: No significant hernia is appreciated. LYMPH NODES: No retroperitoneal lymphadenopathy VASCULAR: Unremarkable. PELVIC VISCERA: The uterus and adnexa are unremarkable. OSSEOUS STRUCTURES: Unremarkable. CT/CT abdomen pelvis wo IV con IMPRESSION: 1. A cause for the patient's left lower quadrant pain has not been found. 2. Incidental note made of cholelithiasis without cholecystitis. Fleischner guidelines were followed.
--- NOTE | ~2022-05-08 | US_ITS ---
EXAMINATION: US PELVIS CLINICAL INFORMATION: Left lower quadrant and left flank pain with question of ovarian torsion COMPARISON: None TECHNIQUE: Ultrasound of the pelvis is performed using both transabdominal and transvaginal transducers along with Doppler. Transvaginal imaging is performed due to inadequate visualization transabdominally. FINDINGS: Uterus: The uterus is retroverted and retroflexed and measures 10.0 x 4.7 x 5.8 cm. The double wall endometrial thickness is 15 mm. The uterus is smooth in contour and has normal myometrial echogenicity. No visible fibroid. Adnexa: Both ovaries are visualized. There is normal color flow to the adnexa. There is no ovarian torsion. There is no pelvic ascites or fluid collection. Bilateral prominent adnexal veins are seen. Right ovary measures 2.4 x 1.7 x 1.4 cm for a volume of 3 mL and appears normal. Left ovary measures 3.3 x 2.5 x 2.3 cm for a volume of 9.9 mL and appears unremarkable including a 1.5 x 0.7 x 1.6 cm corpus luteal cyst. US/US pelvic and transvaginal IMPRESSION: No evidence of ovarian torsion.
[2022-05-08 09:18] VITALS: BP 105/50; PULSE 89; RESP 19; TEMP 36.3; O2SAT 100; BMI 39.0
[2022-05-08 09:33] LABS: MANUAL DIFF FLAG NO
[2022-05-08 09:34] LABS: Basophils Percent Auto 0.6 % (0-2); Eosinophils Absolute Auto 0.1 X10*3/uL (0.0-0.4); Hematocrit 40.3 % (37.0-47.0); Hemoglobin 13.6 g/dl (12.0-16.0); Imm Gran Abs Auto 0.01 X10*3/uL (0.00-0.03); Imm Gran Pct Auto 0.2 % (0.0-0.4); Lymphocytes Percent Auto 37.7 % (20-40); Mean Corpuscular HGB Conc 33.7 g/dl (31.0-35.0); Mean Corpuscular Hemoglobin 29.2 pg (27.0-33.0); Mean Corpuscular Volume 86.7 fL (80.0-98.0); Mean Platelet Volume 10.5 fL (9.4-12.3); Monocytes Absolute Auto 0.4 X10*3/uL (0.1-1.2); Monocytes Percent Auto 7.2 % (2-11); Neutrophils Absolute Auto 2.8 x10*3/uL (2.0-8.3); Neutrophils Percent Auto 52.3 % (45-73); Platelet Count 215 X10*3/uL (160-400); Red Blood Count 4.65 X10*6/uL (4.20-5.50); Red Cell Distribution Width 13.2 % (11.0-16.0); White Blood Count 5.4 X10*3/uL (4.8-10.8)
[2022-05-08 09:44] LABS: Appearance Urine Cloudy; Color Urine Yellow; Glucose Urine UA Negative (Negative); Leukocyte Esterase Urine Small (1+) (Negative); Nitrite Urine Negative (Negative); PH 7.5 (5.0-9.0); Specific Gravity - Urine 1.025 (1.005-1.025); UMIC TRIGGER UACC YES; Urine Blood Negative (Negative); Urine Ketones Trace mg/dL (Negative); Urine Protein Negative (Neg-Trace)
[2022-05-08 09:45] LABS: UPreg QC Valid YES; Urine Pregnancy NEGATIVE (NEGATIVE)
[2022-05-08 09:49] LABS: Bacteria Urine 1+ (None Seen); Hyaline Casts Urine 0-2 /LPF (0-2); RBC Urine 0-2 /HPF (0-2); UACC Culture Trigger YES
[2022-05-08 09:53] LABS: Alanine Aminotransferase 20 U/L (0-31); Alkaline Phosphatase 52 U/L (39-117); Anion Gap 9 (12-20); Aspartate Amino Transferase 18 U/L (5-31); Bilirubin Direct 0.5 mg/dL (0.0-0.5); Bilirubin Total 2.2 mg/dL (0.0-1.0); Blood Urea Nitrogen 9 mg/dL (9-16); Calcium 8.8 mg/dL (8.4-10.2); Carbon Dioxide 26 mmol/L (22-29); Chloride 108 mmol/L (96-108); Creatinine Clr Calc Pharmacy 106.3; Estimated Glomerular Filt Rate > 60; Glucose Random 96 mg/dL (60-115); Lipase 12 U/L (8-78); Potassium 3.9 mmol/L (3.3-5.1); Sodium 139 mmol/L (135-145); Total Protein 6.5 g/dL (6.5-8.0)
[2022-05-08 10:54] VITALS: BP 96/57; PULSE 71; RESP 16; TEMP 36.7; O2SAT 100
--- NOTE | 2022-05-08 11:28 | ED.ABDPAIN ---
HPI - Abdominal Pain General Chief Complaint: Abdominal Pain Stated Complaint: L flank pain/Kidney stone? Time Seen by Provider: 05/08/22 10:48 History of Present Illness HPI narrative: Patient is a 32 year female presents today with having left flank pain. Pain is been ongoing for the last 4 days. It radiates to the left lower quadrant. There is no vaginal discharge. Patient claims she is not sexually active. Had not Ms. Her menstruations. No fever no chills. No pain on urination. No nausea no vomiting. No coughing or congestion or upper respiratory symptoms. No diaphoresis. Patient is from home. Related Data Home Medications Medication Instructions Recorded Confirmed levothyroxine 100 mcg capsule 100 mcg PO DAILY 03/26/21 05/07/21 Previous Rx's Medication Instructions Recorded hydrocortisone 1 % topical cream 1 appl topical BID PRN rash 7 days 12/27/21 (Anti-Itch (hydrocortisone)) #28.4 grams Allergies Allergy/AdvReac Type Severity Reaction Status Date / Time No Known Allergies Allergy Mild UNKNOWN Verified 12/27/21 14:48 Review of Systems Review of Systems Positive left flank pain, positive left lower quadrant pain Yes all other systems are reviewed and are negative [facility] Past Medical History Attestation statement: The following information was validated with the patient. Medical History Genital herpes Hypothyroidism Migraine without aura PCOS (polycystic ovarian syndrome) Family History Family History Mother Heart disease Cervical cancer CVD (cardiovascular disease) Maternal Grandmother Diabetes mellitus Cervical cancer Heart disease CVD (cardiovascular disease) Social History Social History Alcohol intake: never Smoked in Last 30 Days: No Use of substances other than those prescribed or required for medical reasons: No Advance Directives: No Advance Directives Information Provided: Yes Patient : No Gender identity: Female Physical Exam ED Vital Signs: Vital Signs - 24 hr 05/08/22 09:18 05/08/22 10:54 05/08/22 12:50 Temperature 97.4 F 98.1 F Pulse Rate 89 71 62 Respiratory Rate 19 16 18 Blood Pressure 105/50 L 96/57 L 92/46 L Pulse Oximetry 100 100 100 Oxygen Delivery Method Room Air Room Air Room Air 05/08/22 14:07 Temperature Pulse Rate 71 Respiratory Rate 18 Blood Pressure 90/37 L Pulse Oximetry 100 Oxygen Delivery Method Room Air BMI result Body Mass Index 39.0 Appearance: Alert. Oriented X3. No acute distress. Eyes: Pupils equal, round and reactive to light. ENT: Pharynx normal. Neck: Normal inspection. Neck supple. No lymph nodes noted. No crepitus CVS: Normal heart rate and rhythm. Pulses normal. Normal S1 and S2 Respiratory: No respiratory distress. Breath sounds normal. No Wheezing. No rales Abdomen: Soft and nontender. No rigidity. No distention. good BS x4 Skin: Skin warm and dry. Normal skin color. Normal skin turgor. Extremities: No lower extremity edema. Neurovascular intact to all extremities. No Lacerations. No Rash Neuro: Oriented X 3. No motor deficit. No sensory deficit. Moving all extermities. No slurred speech Medical Decision Making Medical Decision Making [facility] Narrative: Patient is a 32-year-old female presents today with having left-sided abdominal pain radiating to the lower groin area. Has a history of kidney stones. Patient also a history of ovarian cyst. Pain on and off since last night. Getting worse. Differential kidney stones, torsion, diverticulitis, obstruction, abscess, perforation. A ultrasound of the pelvis was ordered. It did not show any evidence of torsion. Positive ovarian cyst noted. Question if that is the cause of patient's pain. A CT scan of the abdomen is still pending. Patient did not want wait anymore. Understood the risk of all the above. Leaving against medical advice. Understood the risk of leaving includes Differential Diagnosis Differential Diagnoses: The differential diagnosis associated with the presentation includes Ovarian cysts, diverticulitis, kidney stone, torsion, abscess Lab Data [facility] Lab Attestation statement: I reviewed the patient's lab results. 05/08/22 09:29 05/08/22 09:29 Labs: Lab Results 05/08/22 05/08/22 05/08/22 Range/Units 09:29 09:29 09:29 WBC 5.4 (4.8-10.8) X10*3/uL RBC 4.65 (4.20-5.50) X10*6/uL Hgb 13.6 (12.0-16.0) g/dl Hct 40.3 (37.0-47.0) % MCV 86.7 (80.0-98.0) fL MCH 29.2 (27.0-33.0) pg MCHC 33.7 (31.0-35.0) g/dl RDW 13.2 (11.0-16.0) % Plt Count 215 (160-400) X10*3/uL MPV 10.5 (9.4-12.3) fL Immature Gran % (Auto) 0.2 (0.0-0.4) % Neut % (Auto) 52.3 (45-73) % Lymph % (Auto) 37.7 (20-40) % [place] % (Auto) 7.2 (2-11) % Eos % (Auto) 2.0 (0-4) % Baso % (Auto) 0.6 (0-2) % Lymph # (Auto) 2.0 (1.2-4.9) X10*3/uL [place] # (Auto) 0.4 (0.1-1.2) X10*3/uL Eos # (Auto) 0.1 (0.0-0.4) X10*3/uL Baso # (Auto) 0.0 (0.0-0.2) X10*3/uL Abs Immat Gran (auto) 0.01 (0.00-0.03) X10*3/uL Absolute Neuts (auto) 2.8 (2.0-8.3) x10*3/uL Absolute Nucleated RBC 0.000 (0.0-0.012) X10*3/uL Nucleated RBC % (auto) 0.0 (0.0-0.2) /100WBC Sodium 139 (135-145) mmol/L Potassium 3.9 (3.3-5.1) mmol/L Chloride 108 (96-108) mmol/L Carbon Dioxide 26 (22-29) mmol/L Anion Gap 9 L (12-20) BUN 9 (9-16) mg/dL Creatinine 0.77 (0.5-1.4) mg/dL Estim Creat Clear Calc 106.3 Estimated GFR > 60 Random Glucose 96 (60-115) mg/dL Calcium 8.8 (8.4-10.2) mg/dL Total Bilirubin 2.2 H (0.0-1.0) mg/dL Direct Bilirubin 0.5 (0.0-0.5) mg/dL AST 18 (5-31) U/L ALT 20 (0-31) U/L Alkaline Phosphatase 52 (39-117) U/L Total Protein 6.5 (6.5-8.0) g/dL Albumin 4.0 (3.5-5.0) g/dL Lipase 12 (8-78) U/L Urine Color Yellow Urine Appearance Cloudy Urine pH 7.5 (5.0-9.0) Ur Specific [place] 1.025 (1.005-1.025) Urine Protein Negative (Neg-Trace) mg/dL Urine Glucose (UA) Negative (Negative) mg/dL Urine Ketones Trace (Negative) mg/dL Urine Blood Negative (Negative) Urine Nitrite Negative (Negative) Ur Leukocyte Esterase Small (1+) H (Negative) Urine RBC 0-2 (0-2) /HPF Urine WBC 11-20 H (0-5) /HPF Ur Squamous Epith Cells 6-10 (0-2) /HPF Urine Bacteria 1+ (None Seen) Hyaline Casts 0-2 (0-2) /LPF Urine Test (NEGATIVE) 05/08/22 Range/Units 09:29 WBC (4.8-10.8) X10*3/uL RBC (4.20-5.50) X10*6/uL Hgb (12.0-16.0) g/dl Hct (37.0-47.0) % MCV (80.0-98.0) fL MCH (27.0-33.0) pg MCHC (31.0-35.0) g/dl RDW (11.0-16.0) % Plt Count (160-400) X10*3/uL MPV (9.4-12.3) fL Immature Gran % (Auto) (0.0-0.4) % Neut % (Auto) (45-73) % Lymph % (Auto) (20-40) % [place] % (Auto) (2-11) % Eos % (Auto) (0-4) % Baso % (Auto) (0-2) % Lymph # (Auto) (1.2-4.9) X10*3/uL [place] # (Auto) (0.1-1.2) X10*3/uL Eos # (Auto) (0.0-0.4) X10*3/uL Baso # (Auto) (0.0-0.2) X10*3/uL Abs Immat Gran (auto) (0.00-0.03) X10*3/uL Absolute Neuts (auto) (2.0-8.3) x10*3/uL Absolute Nucleated RBC (0.0-0.012) X10*3/uL Nucleated RBC % (auto) (0.0-0.2) /100WBC Sodium (135-145) mmol/L Potassium (3.3-5.1) mmol/L Chloride (96-108) mmol/L Carbon Dioxide (22-29) mmol/L Anion Gap (12-20) BUN (9-16) mg/dL Creatinine (0.5-1.4) mg/dL Estim Creat Clear Calc Estimated GFR Random Glucose (60-115) mg/dL Calcium (8.4-10.2) mg/dL Total Bilirubin (0.0-1.0) mg/dL Direct Bilirubin (0.0-0.5) mg/dL AST (5-31) U/L ALT (0-31) U/L Alkaline Phosphatase (39-117) U/L Total Protein (6.5-8.0) g/dL Albumin (3.5-5.0) g/dL Lipase (8-78) U/L Urine Color Urine Appearance Urine pH (5.0-9.0) Ur Specific [place] (1.005-1.025) Urine Protein (Neg-Trace) mg/dL Urine Glucose (UA) (Negative) mg/dL Urine Ketones (Negative) mg/dL Urine Blood (Negative) Urine Nitrite (Negative) Ur Leukocyte Esterase (Negative) Urine RBC (0-2) /HPF Urine WBC (0-5) /HPF Ur Squamous Epith Cells (0-2) /HPF Urine Bacteria (None Seen) Hyaline Casts (0-2) /LPF Urine Test NEGATIVE (NEGATIVE) Radiology Impression Discussion of test interpretation with radiology: I have reviewed the radiologist's reading. Radiologist Impression: Ultrasound showed no torsion External Record Review External record reviewed: Inpatient record Discharge Plan Discharge Clinical Impression: Abdominal pain Patient Disposition: Left Against Medical Advice Instructions: Abdominal Pain (ED) Prescriptions: No Action hydrocortisone [Anti-Itch (HC)] 1 % cream 1 appl topical BID PRN (Reason: rash) 7 Days Qty: 28.4 0RF levothyroxine 100 mcg capsule 100 mcg PO DAILY Referrals: Physician,Unknown J [Primary Care Provider] - (Follow-up with your doctor soon as possible. If he changes mind come back to the emergency department.) Stand Alone Forms: Against Medical Advice
--- NOTE | 2022-05-08 11:33 | PC.NURSE ---
pt a&ox3, vss, reporting left lower back pain radiating to left pelvic area, worse with rest, denies any other symptoms. pt pending CT and u/s. no new orders at this time.
[2022-05-08 12:50] VITALS: BP 92/46; PULSE 62; RESP 18; O2SAT 100
[2022-05-08 14:07] VITALS: BP 90/37; PULSE 71; RESP 18; O2SAT 100
== END 2022-05-08 15:56 | disposition left against medical advice (07) ==
PROVIDERS: Emergency Provider Emergency Medicine Emergency Medical Services
DX: R10.32 Left lower quadrant pain (principal)
CPT/HCPCS: 36415; 74176; 76830; 76856; 80048; 80076; 81001; 81025; 83690; 85025; 87086; 99284

== ENCOUNTER 2022-08-16 00:16 | Emergency (ER) | payer OTHER, SELFPAY ==
[2022-08-16 00:24] VITALS: BP 110/74; PULSE 71; RESP 18; TEMP 36.6; O2SAT 99; BMI 38.7
--- NOTE | 2022-08-16 00:50 | ED.DENTAL ---
HPI - Dental/Oral General Chief complaint: Dental/Oral Stated complaint: Dental Pain Time Seen by Provider: 08/16/22 00:50 Source: patient Mode of arrival: ambulatory Limitations: no limitations History of Present Illness HPI Narrative: Patient with history of dental caries had root canal yesterday for last few hours noticed severe pain at the location of wound care now unable to manage using ibuprofen and Tylenol Related Data Home Medications Medication Instructions Recorded Confirmed levothyroxine 100 mcg capsule 100 mcg PO DAILY 03/26/21 05/07/21 Previous Rx's Medication Instructions Recorded hydrocortisone 1 % topical cream 1 appl topical BID PRN rash 7 days 12/27/21 (Anti-Itch (hydrocortisone)) #28.4 grams amoxicillin 875 mg-potassium 1 tab PO BID #20 tabs 08/16/22 clavulanate 125 mg tablet oxycodone 5 mg tablet 5 mg PO Q6H PRN pain #20 tabs 08/16/22 Allergies Allergy/AdvReac Type Severity Reaction Status Date / Time No Known Allergies Allergy Mild UNKNOWN Verified 12/27/21 14:48 Review of Systems Review of Systems: Yes all other systems are reviewed and are negative [facility] Past Medical History Medical History Genital herpes Hypothyroidism Migraine without aura PCOS (polycystic ovarian syndrome) Family History Family History Mother Heart disease Cervical cancer CVD (cardiovascular disease) Maternal Grandmother Diabetes mellitus Cervical cancer Heart disease CVD (cardiovascular disease) Social History Social History Alcohol intake: never Advance Directives: No Advance Directives Information Provided: No Gender identity: Female Physical Exam Vital Signs: Vital Signs: Last Vital Signs Temp 97.8 F 08/16/22 00:24 Pulse 71 08/16/22 00:24 Resp 18 08/16/22 00:24 BP 110/74 08/16/22 00:24 Pulse Ox 99 08/16/22 00:24 O2 Del Method Room Air 08/16/22 00:24 BMI result Body Mass Index 38.7 HEENT: Teeth image: 1. Temporary filling at the site root canal no gum swelling percussion tenderness+ Medical Decision Making Medical Decision Making MDM Narrative: Patient with likely pulpitis/missed root canal will give a course of antibiotic and pain medication advised to follow up with dentist Discharge Plan Discharge Clinical Impression: Acute pulpitis Patient Disposition: Home, Self-Care Instructions: Root Canal (DC) Additional Instructions: Take antibiotic and pain medication as prescribed Follow-up with your dentist tomorrow Prescriptions: New amoxicillin-pot clavulanate 875-125 mg tablet 1 tab PO BID Qty: 20 0RF oxycodone 5 mg tablet 5 mg PO Q6H PRN (Reason: pain) Qty: 20 0RF Rx Instructions: Partial Fill upon patient request. No Action hydrocortisone [Anti-Itch (HC)] 1 % cream 1 appl topical BID PRN (Reason: rash) 7 Days Qty: 28.4 0RF levothyroxine 100 mcg capsule 100 mcg PO DAILY
--- OUTSIDE RECORDS SUMMARY | 2022-08-16 00:53 | XMS_ITS | Continuity of Care Document ---
Author Name Unknown Organization [facility] Address [address], [address], [address] [place] [address]- Care Team Providers Care Seed Corn Manager Production Name Role Phone Rissa RICH, Periklpdero Primary Care Physician [place] [facility] [place] [facility] [address], [address], [address] [place] [address]- [facility] Attending Physician: Jazmine Gray Admitting Physician: AdmtrJazmine Referring Physician: Admtr, Ar8 Allergies, Adverse Reactions, Alerts No Known Medication Allergies Immunizations Given and Recorded Vaccine Date Status Refusal Reason influenza virus vaccine, inactivated 03/30/19 Give n influenza virus vaccine, inactivated 04/05/15 Give n tetanus/diphtheria/pertussis, acel(Tdap) 07/08/14 Given Medications levothyroxine 50 mcg (0.05 mg) oral capsule 1 capsule = 50 mcg, By Mouth, Daily, # 42 capsule, 0 Refills, Maintenance, 03/30/19 9:18:00 EST, Capsule, [facility] #[id number], d/c 125 mcg,, 156.6, cm, 03/30/19 9:17:00 EST, Height Start Date: 03/30/19 Stop Date: 05/11/19 Status: Ordered Problem List Condition Effective Dates Status Health Status Inform ant Acquired Hypothyroidism(Confirmed) Active Chronic LBP(Confirmed) Active Excessive weight gain(Confirmed) Active Andra thyroiditis(Confirmed) Active Possible SARAHY (obstructive sl eep apnea)(Confirmed) Active Social History Social History Type Response Smoking Status Never smoker entered on: 07/08/14 Sex Female
--- OUTSIDE RECORDS SUMMARY | 2022-08-16 00:53 | XMS_ITS | Continuity of Care Document ---
Author Name Unknown Organization [facility] Address [address] [facility], [address], [address] [place] [id number]- Care Team Providers Care Title Specialist Name Role Phone Rissa RICH, Pily Primary Care Physician [place] [facility] [place] [facility] [place] [facility] [address], [address], [address] [place] [address]- [facility] Attending Physician: Huber Reyes MD Referring Physician: Pily Kwok MD Allergies, Adverse Reactions, Alerts No Known Medication Allergies Immunizations Given and Recorded Vaccine Date Status Refusal Reason influenza virus vaccine, inactivated 03/30/19 Give n influenza virus vaccine, inactivated 04/05/15 Give n tetanus/diphtheria/pertussis, acel(Tdap) 07/08/14 Given Medications eletriptan 40 mg oral tablet 1 tablet = 40 mg, By Mouth, Daily, PRN for migraine headache, # 6 tablet, 4 Refills, Soft Stop, 05/28/19 12:59:00 EDT, Tablet, [facility] #[id number], has tried naratriptan, sumatriptnan, and rizatriptan, 156.6, cm, 03/30/19 9:17:00 EST, Height Start Date: 05/28/19 Stop Date: 10/25/19 Status: Ordered levothyroxine 50 mcg (0.05 mg) oral capsule 1 capsule = 50 mcg, By Mouth, Daily, # 42 capsule, 0 Refills, Maintenance, 05/21/19 12:46:00 EDT, Capsule, [facility] #[id number], d/c 125 mcg,, 156.6, cm, 03/30/19 9:17:00 EST, Height Start Date: 05/21/19 Stop Date: 07/02/19 Status: Ordered Problem List Condition Effective Dates Status Health Status Inform ant Acquired Hypothyroidism(Confirmed) Active Chronic LBP(Confirmed) Active Excessive weight gain(Confirmed) Active Andra thyroiditis(Confirmed) Active Possible SARAHY (obstructive sl eep apnea)(Confirmed) Active Social History Social History Type Response Smoking Status Never smoker entered on: 07/08/14 Sex Female
--- OUTSIDE RECORDS SUMMARY | 2022-08-16 00:53 | XMS_ITS | Continuity of Care Document ---
Author Name Unknown Organization [facility] Address [address] [place] [address]- Care Team Providers Care Pool Player Name Role Phone Brad RICH, Huber Cuellarpushpa Primary Care Physician [phone] [place] [facility] [place]s): 06/11/22 - 07/11/22 [facility] [address] [place] [address]- Allergies, Adverse Reactions, Alerts No Known Medication Allergies Immunizations Given and Recorded Vaccine Date Status Refusal Reason influenza virus vaccine, inactivated 03/30/19 Give n influenza virus vaccine, inactivated 04/05/15 Give n tetanus/diphtheria/pertussis, acel(Tdap) 07/08/14 Given Medications levothyroxine 0.1 mg oral tablet 1 tablet, By Mouth, Daily, for 90 days, # 90 tablet, 4 Refills, Physician Stop 02/16/23 11:19:00 EST, 11/23/21 11:19:00 EDT, [facility] #[id number], 156.6, cm, 11/23/21 11:09:00 EDT, Height Start Date: 11/23/21 Stop Date: 02/16/23 Status: Ordered ZOLMitriptan 5 mg oral tablet 1 tablet = 5 mg, By Mouth, Daily, PRN for migraine headache, # 9 tablet, 6 Refills, Soft Stop, 07/20/19 11:26:00 EDT, Tablet, [facility] #[id number], have tried naratriptan, sumatriptan, and rizatriptan which ineffective., 156.6, cm, 03/30/19 9:1... Start Date: 07/20/19 Stop Date: 02/15/20 Status: Ordered Problem List Condition Confirmation Course Effective Dates Status H ealth Status Informant Acquired Hypothyroidism Confirmed Active Chronic LBP Confirmed Active Excessive weight gain Confirmed Active Andra thyroiditis Confirmed Active Obese class II Confirmed Active Possible SARAHY (obstructive sleep apnea) Confirmed Active Social History Social History Type Response Smoking Status Never smoker entered on: 07/08/14 Sex Female Patient Care team information Care Team Personnel Name: Huber Salinas MD Position: [facility] Resident Member Role: PCP Address: Address: [address] [place] [address] [place] [address]- Care Team Related Persons Name: NEEMA MCGHEE Address: home [address] [place] [id number]
--- OUTSIDE RECORDS SUMMARY | 2022-08-16 00:53 | XMS_ITS | Continuity of Care Document ---
Author Name Unknown Organization [facility] Address [address] [place] [address]- Care Team Providers Care Optics Engineer Name Role Phone Rissa RICH, Periindra Primary Care Physician Encounter [facility] Date(s): 04/06/19 - 04/16/19 [facility] [address] [place] [address]- [facility] Attending Physician: Jazmine Gray Admitting Physician: Jazmine Gray Referring Physician: AdmtrJazmine Allergies, Adverse Reactions, Alerts No Known Medication Allergies Immunizations Given and Recorded Vaccine Date Status Refusal Reason influenza virus vaccine, inactivated 03/30/19 Give n influenza virus vaccine, inactivated 04/05/15 Give n tetanus/diphtheria/pertussis, acel(Tdap) 07/08/14 Given Medications levothyroxine 50 mcg (0.05 mg) oral capsule 1 capsule = 50 mcg, By Mouth, Daily, # 42 capsule, 0 Refills, Maintenance, 03/30/19 9:18:00 EST, Capsule, [facility] #[id number], d/c 125 mcg,, 156.6, cm, 03/30/19 9:17:00 [...]
--- OUTSIDE RECORDS SUMMARY | 2022-08-16 00:53 | XMS_ITS | Continuity of Care Document ---
Author Name Unknown Organization [facility] Address [address] [place] [address]- Care Team Providers Care Apprentice Painter Neckties Name Role Phone Vega RICH, Ya Primary Care Physician Encounter [facility] Date(s): 07/12/20 - 08/11/20 [facility] [address] [place] [address]- Attending Physician: Jazmine Gray Admitting Physician: Jazmine Gray Referring Physician: AdmtrJazmine Allergies, Adverse Reactions, Alerts No Known Medication Allergies Immunizations Given and Recorded Vaccine Date Status Refusal Reason influenza virus vaccine, inactivated 03/30/19 Give n influenza virus vaccine, inactivated 04/05/15 Give n tetanus/diphtheria/pertussis, acel(Tdap) 07/08/14 Given Medications levothyroxine 0.05 mg oral tablet 1 tablet = 50 mcg, By Mouth, Daily, TAKE 1 TABLET BY MOUTH FOR 6 WEEKS, # 42 tablet, 3 Refills, Maintenance, 05/08/20 9:57:00 EST, Tablet, [facility] #[id number], Partial fill upon patient request if the prescription is for a schedule II opioid d... Start Date: 05/08/20 Stop Date: 10/23/20 Status: Ordered ZOLMitriptan 5 mg oral tablet 1 tablet = 5 mg, By Mouth, Daily, PRN for migraine headache, # 9 tablet, 6 Refills, Soft Stop, 07/20/19 11:26:00 EDT, Tablet, [facility] #[id number], have tried naratriptan, sumatriptan, and rizatriptan which ineffective., 156.6, cm, 03/30/19 9:1... Start Date: 07/20/19 Stop Date: 02/15/20 Status: Ordered Problem List Condition Effective Dates Status Health Status Inform ant Acquired Hypothyroidism(Confirmed) Active Chronic LBP(Confirmed) Active Excessive weight gain(Confirmed) Active Andra thyroiditis(Confirmed) Active Possible SARAHY (obstructive sl eep apnea)(Confirmed) Active Social History Social History Type Response Smoking Status Never smoker entered on: 07/08/14 Sex Female
--- OUTSIDE RECORDS SUMMARY | 2022-08-16 00:53 | XMS_ITS | Continuity of Care Document ---
Author Name Unknown Organization [facility] Address [address] [facility], 3r d Floor, [address] [place] [address]- Care Team Providers Care Web Software Engineer Name Role Phone Vega RICH, Ya Primary Care Physician [phone] Encounter [facility] Date(s): 09/30/19 - 10/30/19 [facility] [address], 3[address] Floor, [address] [place] [address]- [facility] Attending Physician: Jazmine Gray Admitting Physician: AdmtrJazmine [...] 0 Refills, Maintenance, 05/21/19 12:46:00 EDT, Capsule, [facility] #[id number], d/c 125 mcg,, 156.6, cm, 03/30/19 9:17:00 EST, Height Start Date: 05/21/19 Stop Date: 07/02/19 Status: Ordered ZOLMitriptan 5 mg oral tablet 1 tablet = 5 mg, By Mouth, Daily, PRN for migraine headache, # 9 tablet, 6 Refills, Soft Stop, 07/20/19 11:26:00 EDT, Tablet, [facility] #[id number], have tried naratriptan, sumatriptan, and rizatriptan which [...]
--- OUTSIDE RECORDS SUMMARY | 2022-08-16 00:53 | XMS_ITS | Continuity of Care Document ---
Author Name Unknown Organization [facility] Address [address], [address] Floor, [address] [place] [address]- Care Team Providers Care Kennel Assistant Name Role Phone Rissa RICH, [facility] Primary Care Physician [place] [facility] [place]): [place] 03/30/19 [facility] [address], 3[address] Floor, [address] [place] [address]- [facility] Attending Physician: Not on Staff, Attending MD Allergies, Adverse Reactions, Alerts No Known Medication Allergies Immunizations Given and Recorded Vaccine Date Status Refusal Reason influenza virus vaccine, inactivated 03/30/19 Give n influenza virus vaccine, inactivated 04/05/15 Give n tetanus/diphtheria/pertussis, acel(Tdap) 07/08/14 Given Medications levothyroxine 50 mcg (0.05 mg) oral capsule 1 capsule = 50 mcg, By Mouth, Daily, # 42 capsule, 0 Refills, Maintenance, 03/30/19 9:18:00 EST, Capsule, [facility] #[id number], d/c 125 mcg,, 156.6, cm, 03/30/19 9:17:00 [...]
--- OUTSIDE RECORDS SUMMARY | 2022-08-16 00:53 | XMS_ITS | Continuity of Care Document ---
Author Name Unknown Organization [facility] Address [address] [place] [address]- Care Team Providers Care Cereal Maker Name Role Phone Vega RICH, Ya Primary Care Physician Encounter [facility] Date(s): 03/22/21 - 04/21/21 [facility] [address] [place] [address]- Allergies, Adverse Reactions, Alerts No Known Medication Allergies Immunizations Given and Recorded Vaccine Date Status Refusal Reason influenza virus vaccine, inactivated 03/30/19 Give n influenza virus vaccine, inactivated 04/05/15 Give n tetanus/diphtheria/pertussis, acel(Tdap) 07/08/14 Given Medications levothyroxine 0.1 mg oral tablet 1 tablet, By Mouth, Daily, # 90 tablet, 1 Refills, 03/22/21 10:08:00 EST, [facility] #[id number], 156.6, cm, 12/25/20 14:00:00 EDT, Height Start Date: 03/22/21 Status: Ordered ZOLMitriptan 5 mg oral tablet 1 tablet = 5 mg, By Mouth, Daily, PRN for migraine headache, # 9 tablet, 6 Refills, Soft Stop, 07/20/19 11:26:00 EDT, Tablet, [facility] #[id number], have tried naratriptan, sumatriptan, and rizatriptan which [...]
--- OUTSIDE RECORDS SUMMARY | 2022-08-16 00:53 | XMS_ITS | Continuity of Care Document ---
Author Name Unknown Organization [facility] Address [address] [place] [address]- Care Team Providers Care Air Quality Chemist Name Role Phone Vega RICH, Ya Primary Care Physician [phone] Encounter [facility] [place] Date(s): 12/25/20 - 01/24/21 [facility] [address] [place] [address]- Attending Physician: Jazmine Gray Admitting Physician: AdmtrJazmine Referring Physician: Admtr, Jazmine Allergies, Adverse Reactions, Alerts No Known Medication Allergies Immunizations Given and Recorded Vaccine Date Status Refusal Reason influenza virus vaccine, inactivated 03/30/19 Give n influenza virus vaccine, inactivated 04/05/15 Give n tetanus/diphtheria/pertussis, acel(Tdap) 07/08/14 Given Medications levothyroxine 0.1 mg oral tablet 1 tablet, By Mouth, Daily, # 90 tablet, 0 Refills, [facility] #[id number], 156.6, cm, :04:00 EDT, Height Start Date: 12/19/20 Status: Ordered ZOLMitriptan 5 mg oral tablet 1 tablet = 5 mg, By Mouth, Daily, PRN for migraine headache, # 9 tablet, 6 Refills, Soft Stop, 07/20/19 11:26:00 EDT, Tablet, [facility] #[id number], have tried naratriptan, sumatriptan, and rizatriptan which [...]
--- OUTSIDE RECORDS SUMMARY | 2022-08-16 00:53 | XMS_ITS | Continuity of Care Document ---
Author Name Unknown Organization [facility] Address [address] [place] [address]- Care Team Providers Care Finger Buff Sewer Name Role Phone Vega RICH, Renetta Primary Care Physician [phone] Encounter [facility] Date(s): 09/06/19 - 10/06/19 [facility] [address] [place] [address]- [facility] Allergies, Adverse Reactions, Alerts No Known Medication Allergies Immunizations Given and Recorded Vaccine Date Status Refusal Reason influenza virus vaccine, inactivated 03/30/19 Give n influenza virus vaccine, inactivated 04/05/15 Give n tetanus/diphtheria/pertussis, acel(Tdap) 07/08/14 Given Medications levothyroxine 50 mcg (0.05 mg) oral capsule 1 capsule = 50 mcg, By Mouth, Daily, # 42 capsule, 0 Refills, Maintenance, 05/21/19 12:46:00 EDT, Capsule, [facility] #[id number], d/c 125 mcg,, 156.6, cm, 03/30/19 9:17:00 EST, Height Start Date: 05/21/19 Stop Date: 07/02/19 Status: Ordered ZOLMitriptan 5 mg oral tablet 1 tablet = 5 mg, By Mouth, Daily, PRN for migraine headache, # 9 tablet, 6 Refills, Soft Stop, 07/20/19 11:26:00 EDT, Tablet, [facility] #[id number], have tried naratriptan, sumatriptan, and rizatriptan which [...]
--- OUTSIDE RECORDS SUMMARY | 2022-08-16 00:53 | XMS_ITS | Continuity of Care Document ---
Author Name Unknown Organization [facility] Address [address] [place] [address]- Care Team Providers Care Blast Furnace Blower Name Role Phone Vega RICH, Renetta Primary Care Physician Encounter [facility] Date(s): 10/26/20 - 11/25/20 [facility] [address] [place] [address]- Allergies, Adverse Reactions, Alerts No Known Medication Allergies Immunizations Given and Recorded Vaccine Date Status Refusal Reason influenza virus vaccine, inactivated 03/30/19 Give n influenza virus vaccine, inactivated 04/05/15 Give n tetanus/diphtheria/pertussis, acel(Tdap) 07/08/14 Given Medications levothyroxine 0.088 mg oral tablet 1 tablet = 88 mcg, By Mouth, Daily, # 30 tablet, 2 Refills, Maintenance, 10/27/20 17:10:00 EDT, [facility] #[id number], Partial fill upon patient request if the prescription is for a schedule II opioid drug., 156.6, cm, 07/12/20 9:40:00 E... Start Date: 10/27/20 Status: Ordered levothyroxine 0.1 mg oral tablet 1 tablet = 100 mcg, By Mouth, Daily, # 30 tablet, 0 Refills, Maintenance, 11/20/20 17:56:00 EDT, [employer] #[id number], Partial fill upon patient request if the prescription is for a schedule II opioid drug., 156.6, cm, 11/20/20 9:04:00... Start Date: 11/20/20 Status: Ordered ZOLMitriptan 5 mg oral tablet 1 tablet = 5 mg, By Mouth, Daily, PRN for migraine headache, # 9 tablet, 6 Refills, Soft Stop, 07/20/19 11:26:00 EDT, Tablet, [facility] #[id number], have tried naratriptan, sumatriptan, and rizatriptan which [...]
--- OUTSIDE RECORDS SUMMARY | 2022-08-16 00:53 | XMS_ITS | Continuity of Care Document ---
Author Name Unknown Organization [facility] Address [address] [place] [address]- Care Team Providers Care Repair Department Supervisor Name Role Phone Vega RICH, Ya Primary Care Physician [phone] Encounter [facility] Date(s): 05/26/21 - 06/25/21 [facility] [address] [place] [address]- Allergies, Adverse Reactions, Alerts No Known Medication Allergies Immunizations Given and Recorded Vaccine Date Status Refusal Reason influenza virus vaccine, inactivated 03/30/19 Give n influenza virus vaccine, inactivated 04/05/15 Give n tetanus/diphtheria/pertussis, acel(Tdap) 07/08/14 Given Medications levothyroxine 0.1 mg oral tablet 1 tablet, By Mouth, Daily, # 90 tablet, 1 Refills, 03/22/21 10:08:00 EST, [facility] #[id number], 156.6, cm, 12/25/20 14:00:00 EDT, Height Start Date: 03/22/21 Status: Ordered ZOLMitriptan 5 mg oral tablet 1 tablet = 5 mg, By Mouth, Daily, PRN for migraine headache, # 9 tablet, 6 Refills, Soft Stop, 07/20/19 11:26:00 EDT, [facility][id number], have tried naratriptan, sumatriptan, and rizatriptan which ineffective., 156.6, cm, 03/30/19 9:1... Start Date: 07/20/19 Stop Date: 02/15/20 Status: Ordered Problem List Condition Effective Dates Status Health Status Inform ant Acquired Hypothyroidism(Confirmed) Active Chronic LBP(Confirmed) Active Excessive weight gain(Confirmed) Active Andra thyroiditis(Confirmed) Active Obese class II(Confirmed) Active Possible SARAHY (obstructive sl eep apnea)(Confirmed) Active Social History Social History Type Response Smoking Status Never smoker entered on: 07/08/14 Sex Female
--- OUTSIDE RECORDS SUMMARY | 2022-08-16 00:53 | XMS_ITS | Continuity of Care Document ---
Author Name Unknown Organization [facility] Address [address] [place] [address]- Care Team Providers Care Slasher Machine Operator Name Role Phone Huber Salinas MD Primary Care Physician [phone] [place] [facility] [place] 11/25/21 - 12/25/21 [facility] [address] [place] [address]- Allergies, Adverse Reactions, Alerts No Known Medication Allergies Immunizations Given and Recorded Vaccine Date Status Refusal Reason influenza virus vaccine, inactivated 03/30/19 Give n influenza virus vaccine, inactivated 04/05/15 Give n tetanus/diphtheria/pertussis, acel(Tdap) 07/08/14 Given Medications levothyroxine 0.1 mg oral tablet 1 tablet, By Mouth, Daily, for 90 days, # 90 tablet, 4 Refills, Physician Stop 02/16/23 11:19:00 EST, 11/23/21 11:19:00 EDT, [facility] #[id number], 156.6, cm, 11/23/21 11:09:00 EDT, Height Start Date: 11/23/21 Stop Date: 02/16/23 Status: Ordered ZOLMitriptan 5 mg oral tablet 1 tablet = 5 mg, By Mouth, Daily, PRN for migraine headache, # 9 tablet, 6 Refills, Soft Stop, 07/20/19 11:26:00 EDT, Tablet, [facility] #[id number], have tried naratriptan, sumatriptan, and rizatriptan which [...] 07/08/14 Sex Female Patient Care team information Personnel Name: Huber Salinas MD Address: Address: [address] [place] [address]
--- OUTSIDE RECORDS SUMMARY | 2022-08-16 00:53 | XMS_ITS | Continuity of Care Document ---
Author Name Unknown Organization [facility] Address [address] [facility], 3r d Floor, [address] [place] [address]- Care Team Providers Care Cold Type Composing Machine Operator Name Role Phone Rissa RICH, Pily Primary Care Physician [place] [facility] [place](s): 07/20/19 - 07/27/19 [facility] [address], 3[address] Floor, [address] [place] [address]- [facility] Attending Physician: Huber Reyes MD Referring Physician: Rissa RICH, Pily Allergies, Adverse Reactions, Alerts No Known Medication Allergies Immunizations Given and Recorded Vaccine Date Status Refusal Reason influenza virus vaccine, inactivated 03/30/19 Give n influenza virus vaccine, inactivated 04/05/15 Give n tetanus/diphtheria/pertussis, acel(Tdap) 07/08/14 Given Medications levothyroxine 50 mcg (0.05 mg) oral capsule 1 capsule = 50 mcg, By Mouth, Daily, # 42 capsule, 0 Refills, Maintenance, 05/21/19 12:46:00 EDT, Capsule, [facility] #[id number], d/c 125 mcg,, 156.6, cm, 03/30/19 9:17:00 EST, Height Start Date: 05/21/19 Stop Date: 07/02/19 Status: Ordered ZOLMitriptan 5 mg oral tablet 1 tablet = 5 mg, By Mouth, Daily, PRN for migraine headache, # 9 tablet, 6 Refills, Soft Stop, 07/20/19 11:26:00 EDT, Tablet, [facility] #[id number], have tried naratriptan, sumatriptan, and rizatriptan which [...]
--- OUTSIDE RECORDS SUMMARY | 2022-08-16 00:54 | XMS_ITS | Continuity of Care Document ---
Author Name Unknown Organization [facility] Address [address] [place] [address]- Care Team Providers Care Director Translation Name Role Phone Vega RICH, Ya Primary Care Physician [phone] Encounter [facility] [place] Date(s): 03/06/21 - 04/05/21 [facility] [address] [place] [address]- Attending Physician: Jazmine Gray Admitting Physician: Jazmine [...] # 90 tablet, 1 Refills, 03/22/21 10:08:00 [facility][id number], 156.6, cm, 12/25/20 14:00:00 EDT, Height Start Date: 03/22/21 Status: Ordered ZOLMitriptan 5 mg oral tablet 1 tablet = 5 mg, By Mouth, Daily, PRN for migraine headache, # 9 tablet, 6 Refills, Soft Stop, 07/20/19 11:26:00 EDT, [facility] #[id number], have tried naratriptan, sumatriptan, and rizatriptan which [...]
--- OUTSIDE RECORDS SUMMARY | 2022-08-16 00:54 | XMS_ITS | Continuity of Care Document ---
Author Name Unknown Organization [facility] Address [address] [facility], 3r d Floor, [address] [place] [address]- Care Team Providers Care Bingo Floater Name Role Phone Rissa RICH, Pily Primary Care Physician [phone] Encounter [facility] [place] Date(s): 02/09/19 - 02/16/19 [facility] [address], 3[address] Floor, [address] [place] [address]- [facility] Attending Physician: Huber Reyes MD Referring Physician: Pily Kwok MD Allergies, Adverse Reactions, Alerts No Known Medication Allergies Immunizations Given and Recorded Vaccine Date Status Refusal Reason influenza virus vaccine, inactivated 04/05/15 Give n tetanus/diphtheria/pertussis, acel(Tdap) 07/08/14 Given Medications levothyroxine 175 mcg (0.175 mg) oral tablet 1 tablet = 175 mcg, By Mouth, Daily, # 90 tablet, 11 Refills, Maintenance, 07/01/18 12:31:41 EDT, Tablet Start Date: 07/01/18 Stop Date: 06/15/21 Status: Ordered loratadine 10 mg oral tablet 10 mg, 1, tablet, By Mouth, Daily, as needed for allergies, # 30 tablet, Refills 1, Tot. Refills 1,Maintenance, 07/01/18 12:16:22 EDT, Route to Pharmacy Electronically, [id number], [id number] Start Date: 07/01/18 Status: Ordered rizatriptan 10 mg oral tablet 1 tablet = 10 mg, By Mouth, Once, PRN for migraine headache, # 9 tablet, 5 Refills, Soft Stop, 02/09/19 11:35:17 EST, Tablet, pt has tried sumatriptan and naratriptan, 156.6, cm, 11/19/18 13:24:12 EDT, Height Start Date: 02/09/19 Status: Ordered Problem List Condition Effective Dates Status Health Status Inform ant Acquired Hypothyroidism(Confirmed) Active Chronic LBP(Confirmed) Active Excessive weight gain(Confirmed) Active Andra thyroiditis(Confirmed) Active Possible SARAHY (obstructive sl eep apnea)(Confirmed) Active Social History Social History Type Response Smoking Status Never smoker entered on: 07/08/14 Sex Female
--- OUTSIDE RECORDS SUMMARY | 2022-08-16 00:54 | XMS_ITS | Continuity of Care Document ---
Author Name Unknown Organization [facility] Address [address] [place] [address]- Care Team Providers Care Meteorological Aide Name Role Phone Huber Salinas MD Primary Care Physician [phone] [place] [facility] [place](s): 11/23/21 - 12/23/21 [facility] [address] [place] [address]- Allergies, Adverse Reactions, Alerts No Known Medication Allergies Immunizations Given and Recorded Vaccine Date Status Refusal Reason influenza virus vaccine, inactivated 03/30/19 Give n influenza virus vaccine, inactivated 04/05/15 Give n tetanus/diphtheria/pertussis, acel(Tdap) 07/08/14 Given Medications levothyroxine 0.1 mg oral tablet 1 tablet, By Mouth, Daily, for 90 days, # 90 tablet, 4 Refills, Physician Stop 02/16/23 11:19:00 EST, 11/23/21 11:19:00 EDT, [facility] #[id number], 156.6, cm, 11/23/21 11:09:00 EDT, Height Start Date: 11/23/21 Stop Date: 02/16/23 Status: Ordered ZOLMitriptan 5 mg oral tablet 1 tablet = 5 mg, By Mouth, Daily, PRN for migraine headache, # 9 tablet, 6 Refills, Soft Stop, 07/20/19 11:26:00 EDT, Tablet, [facility] #[id number], have tried naratriptan, sumatriptan, and rizatriptan which [...] Personnel Name: Huber Salinas MD Address: Address: [address] [place] [address]
--- OUTSIDE RECORDS SUMMARY | 2022-08-16 00:54 | XMS_ITS | Continuity of Care Document ---
Author Name Unknown Organization [facility] Diabetes Address [address] [place] [address]- Care Team Providers Care Manager Learning Name Role Phone Huber Salinas MD Primary Care Physician Encounter [facility] [place] Date(s): 10/17/21 - 11/16/21 [facility] Diabetes [address] [place] [address]- Allergies, Adverse Reactions, Alerts No Known Medication Allergies Immunizations Given and Recorded Vaccine Date Status Refusal Reason influenza virus vaccine, inactivated 03/30/19 Give n influenza virus vaccine, inactivated 04/05/15 Give n tetanus/diphtheria/pertussis, acel(Tdap) 07/08/14 Given Medications levothyroxine 0.1 mg oral tablet 1 tablet, By Mouth, Daily, # 90 tablet, 1 Refills, 10/17/21 14:38:00 EDT, [facility] #[id number], 156.6, cm, 05/25/21 12:31:00 EDT, Height Start Date: 10/17/21 Status: Ordered ZOLMitriptan 5 mg oral tablet 1 tablet = 5 mg, By Mouth, Daily, PRN for migraine headache, # 9 tablet, 6 Refills, Soft Stop, 07/20/19 11:26:00 EDT, Tablet, [facility] #[id number], have tried naratriptan, sumatriptan, and rizatriptan which [...] Never smoker entered on: 07/08/14 Sex Female Care Team Personnel Name: Huber Salinas MD Address: [address] [place] [address]
--- OUTSIDE RECORDS SUMMARY | 2022-08-16 00:54 | XMS_ITS | Continuity of Care Document ---
Author Name Unknown Organization [facility] Address [address] [place] [address]- Care Team Providers Care Named Account Executive Name Role Phone Vega RICH, Ya Primary Care Physician [phone] Encounter [facility] Date(s): 09/13/20 - 10/13/20 [facility] [address] [place] [address]- Allergies, Adverse Reactions, Alerts No Known Medication [...] 3 Refills, Maintenance, 05/08/20 9:57:00 EST, Tablet, [facility] #[id number], Partial fill upon patient request if the prescription is for a schedule II opioid d... Start Date: 05/08/20 Stop Date: 10/23/20 Status: Ordered ZOLMitriptan 5 mg oral tablet 1 tablet = 5 mg, By Mouth, Daily, PRN for migraine headache, # 9 tablet, 6 Refills, Soft Stop, 07/20/19 11:26:00 EDT, Tablet, [facility] #[id number], have tried naratriptan, sumatriptan, and rizatriptan which [...]
--- OUTSIDE RECORDS SUMMARY | 2022-08-16 00:54 | XMS_ITS | Continuity of Care Document ---
Author Name Unknown Organization [facility] Address [address] [place] [address]- Care Team Providers Care Lockstitch Topstitcher Name Role Phone Vega RICH, Renetta Primary Care Physician Encounter [facility] [place] Date(s): 12/06/20 - 04/05/21 [facility] [address] [place] [address]- Attending Physician: Jacquie Lawler MD Admitting Physician: Jacquie Lawler MD Referring Physician: Vega RICH (Internal Medicine) , Renetta Allergies, Adverse Reactions, Alerts No Known Medication Allergies Immunizations Given and Recorded Vaccine Date Status Refusal Reason influenza virus vaccine, inactivated 03/30/19 Give n influenza virus vaccine, inactivated 04/05/15 Give n tetanus/diphtheria/pertussis, acel(Tdap) 07/08/14 Given Medications levothyroxine 0.1 mg oral tablet 1 tablet, By Mouth, Daily, # 90 tablet, 1 Refills, 03/22/21 10:08:[id number], 156.6, cm, 12/25/20 14:00:00 EDT, Height Start Date: 03/22/21 Status: Ordered ZOLMitriptan 5 mg oral tablet 1 tablet = 5 mg, By Mouth, Daily, PRN for migraine headache, # 9 tablet, 6 Refills, Soft Stop, 07/20/19 11:26:00 EDT, [facility] #[id number], have tried naratriptan, sumatriptan, and rizatriptan which [...]
--- OUTSIDE RECORDS SUMMARY | 2022-08-16 00:54 | XMS_ITS | Continuity of Care Document ---
Author Name Unknown Organization [facility] Address [address] [place] [address]- Care Team Providers Care Lead Java J2Ee Developer Name Role Phone Rissa RICH, Pily Primary Care Physician En[place] [facility] [place] Date(s): 05/19/19 - 05/29/19 [facility] [address] [place] [address]- [facility] Attending Physician: Jazmine Gray Admitting [...] Refills, Soft Stop, 05/28/19 12:59:00 EDT, Tablet, [facility] #[id number], has tried naratriptan, sumatriptnan, and rizatriptan, 156.6, cm, 03/30/19 9:17:00 EST, Height Start Date: 05/28/19 Stop Date: 10/25/19 Status: Ordered levothyroxine 50 mcg (0.05 mg) oral capsule 1 capsule = 50 mcg, By Mouth, Daily, # 42 capsule, 0 Refills, Maintenance, 05/21/19 12:46:00 EDT, Capsule, [facility] #[id number], d/c 125 mcg,, 156.6, cm, 03/30/19 9:17:00 [...]
--- OUTSIDE RECORDS SUMMARY | 2022-08-16 00:54 | XMS_ITS | Continuity of Care Document ---
Author Name Unknown Organization [facility] Address [address] [place] [address]- Care Team Providers Care Asphalt Paving Supervisor Name Role Phone Rissa RICH, [facility] Primary Care Physician [facility] Date(s): 03/30/19 - 05/06/19 [facility] [address] [place] [address]- [facility] Attending Physician: Not on Staff, Attending MD [...] 0 Refills, Maintenance, 03/30/19 9:18:00 EST, Capsule, [facility] #[id number], d/c 125 mcg,, 156.6, cm, 03/30/19 9:17:00 [...]
--- OUTSIDE RECORDS SUMMARY | 2022-08-16 00:54 | XMS_ITS | Continuity of Care Document ---
Author Name Unknown Organization [facility] Address [address] [place] [address]- Care Team Providers Care Prescription Benefit Specialist Name Role Phone Huber Salinas MD Primary Care Physician En[place] [facility] [place](s): 11/23/21 - 12/23/21 [facility] Diabetes [address] [place] [address] Attending Physician: Jazmine Gray Admitting Physician: AdmtrJazmine [...] Stop 02/16/23 11:19:00 EST, 11/23/21 11:19:00 EDT, [facility] #[id number], 156.6, cm, 11/23/21 11:09:00 EDT, Height Start Date: 11/23/21 Stop Date: 02/16/23 Status: Ordered ZOLMitriptan 5 mg oral tablet 1 tablet = 5 mg, By Mouth, Daily, PRN for migraine headache, # 9 tablet, 6 Refills, Soft Stop, 07/20/19 11:26:00 EDT, Tablet, [facility] #[id number], have tried naratriptan, sumatriptan, and rizatriptan which [...] Personnel Name: Huber Salinas MD Address: Address: [address] [place] [address]
--- OUTSIDE RECORDS SUMMARY | 2022-08-16 00:54 | XMS_ITS | Continuity of Care Document ---
Author Name Unknown Organization [facility] Address [address] [place] [address]- Care Team Providers Care Elementary Educator Name Role Phone Vega RICH, Ya Primary Care Physician [phone] Encounter [facility] Date(s): 05/02/20 - 06/01/20 [facility] [address] [place] [address]- Allergies, Adverse Reactions, Alerts No Known Medication [...] 3 Refills, Maintenance, 05/08/20 9:57:00 EST, Tablet, [facility] #[id number], Partial fill upon patient request if the prescription is for a schedule II opioid d... Start Date: 05/08/20 Stop Date: 10/23/20 Status: Ordered ZOLMitriptan 5 mg oral tablet 1 tablet = 5 mg, By Mouth, Daily, PRN for migraine headache, # 9 tablet, 6 Refills, Soft Stop, 07/20/19 11:26:00 EDT, Tablet, [facility] #[id number], have tried naratriptan, sumatriptan, and rizatriptan which [...]
--- OUTSIDE RECORDS SUMMARY | 2022-08-16 00:54 | XMS_ITS | Continuity of Care Document ---
Author Name Unknown Organization [facility] Address [address] [facility], [address] d Floor, [address] [place] [id number]- Care Team Providers Care Retail Coverage Merchandiser Lead Name Role Phone Vega RICH, Ya Primary Care Physician Encounter [facility] [place] Date(s): 07/20/19 - 10/30/19 [facility] [address], 3[address] Floor, [address] [place] [address]- [facility] Attending Physician: Huber Reyes MD Referring [...] 0 Refills, Maintenance, 05/21/19 12:46:00 EDT, Capsule, [facility] #[id number], d/c 125 mcg,, 156.6, cm, 03/30/19 9:17:00 EST, Height Start Date: 05/21/19 Stop Date: 07/02/19 Status: Ordered ZOLMitriptan 5 mg oral tablet 1 tablet = 5 mg, By Mouth, Daily, PRN for migraine headache, # 9 tablet, 6 Refills, Soft Stop, 07/20/19 11:26:00 EDT, Tablet, [facility] #[id number], have tried naratriptan, sumatriptan, and rizatriptan which [...]
[2022-08-16] MEDS: Amoxicillin/Potassium Clav 875 MG TABLET PO (01:34)
[2022-08-16] MEDS: oxyCODONE HCl Immed Release 5 MG TABLET 10 MG PO (01:34)
[2022-08-16 01:36] VITALS: BP 103/62; PULSE 65; RESP 16; TEMP 36.9; O2SAT 99
--- NOTE | 2022-08-16 01:41 | PC.NURSE ---
patient is stable and clear in the process of being discharge
--- NOTE | 2022-08-16 01:46 | PC.NURSE ---
patient in the process of being discharged
== END 2022-08-16 02:02 | disposition home or self-care (01) ==
PROVIDERS: Emergency Provider Internal Medicine
DX: K04.01 Reversible pulpitis (principal); K08.89 Other specified disorders of teeth and supporting structures; Z79.899 Other long term (current) drug therapy
CPT/HCPCS: 99283; 99284

== ENCOUNTER 2022-09-30 09:59 | Outpatient (REF) | payer OTHER, SELFPAY ==
[2022-10-01 05:58] LABS: CT PCR NOT DETECTED (Not Detect.); NG PCR NOT DETECTED (Not Detect.)
[2022-10-01 14:15] LABS: BV Int Neg Control Negative (Negative); BV Int Pos Control Positive (Positive)
[2022-10-07 18:10] LABS: HPV 16 RNA NOT DETECTED (NOT DETECTED); HPV mRNA E6/E7 rflx Detected (Not Detected)
== END 2022-09-30 10:00 | disposition home or self-care (01) ==
LOC: HO.LNP 09:59
PROVIDERS: Visit Provider Advanced Practice Midwife
DX: Z01.419 Encounter for gynecological examination (general) (routine) without abnormal findings (principal); R87.612 Low grade squamous intraepithelial lesion on cytologic smear of cervix (LGSIL); E28.2 Polycystic ovarian syndrome; L29.2 Pruritus vulvae; Z11.3 Encounter for screening for infections with a predominantly sexual mode of transmission; Z87.42 Personal history of other diseases of the female genital tract; Z79.899 Other long term (current) drug therapy
CPT/HCPCS: 0353U; 87480; 87510; 87624; 87625; 87660; 88142

== ENCOUNTER 2022-09-30 09:59 | Outpatient (AMB) | payer OTHER, SELFPAY ==
--- OUTSIDE RECORDS SUMMARY | 2022-09-30 10:01 | XMS_ITS | Continuity of Care Document ---
Author Name Unknown Organization [facility] Address [address] [place] [address]- Care Team Providers Care Auditor Name Role Phone Brad RICH, Huber Forrester Primary Care Physician Encounter [facility] [place] Date(s): 08/08/22 - 09/07/22 [facility] [address] [place] [id number]- Allergies, Adverse Reactions, Alerts No Known Medication Allergies Immunizations Given and Recorded Vaccine Date Status Refusal Reason influenza virus vaccine, inactivated 03/30/19 Give n influenza virus vaccine, inactivated 04/05/15 Give n tetanus/diphtheria/pertussis, acel(Tdap) 07/08/14 Given Medications bupropion-naltrexone 90 mg-8 mg oral tablet, extended release 1 tablet, By Mouth, Daily in AM, 1tablet daily for 1 week; 1 tablet twice daily for 1 week; then 2 tablets in the morning and 1 tablet in the evening for 1 week; and then 2 tablets twice daily, # 30 tablet, 7 Refills, Maintenance, 09/06/22 12:11:00 ED... Start Date: 09/06/22 Status: Ordered levothyroxine 0.1 mg oral tablet 1 tablet, By Mouth, Daily, for 90 days, # 90 tablet, 4 Refills, Physician Stop 02/16/23 11:19:00 EST, 11/23/21 11:19:00 EDT, [facility] #[id number], 156.6, cm, 11/23/21 11:09:00 EDT, Height Start Date: 11/23/21 Stop Date: 02/16/23 Status: Ordered Multivitamins with Vitamin B Complex, Vitamin C, Minerals and L- Methylfolate oral capsule 1 capsule, By Mouth, Daily, # 30 capsule, 5 Refills, Maintenance, 09/06/22 12:11:00 EDT, Capsule, [facility] #[id number], Partial fill upon patient request if the prescription is for a schedule II opioid drug., 1 capsule By Mouth Daily, 156.6, cm... Start Date: 09/06/22 Status: Ordered ZyrTEC 10 mg oral tablet 1 tablet = 10 mg, By Mouth, Daily, PRN for allergy symptoms, # 30 tablet, 4 Refills, Maintenance, 09/06/22 11:37:00 EDT, Tablet, [facility] #[id number], Partial fill upon patient request if the prescription is for a schedule II opioid drug., 156.... Start Date: 09/06/22 Status: Ordered Problem List Condition Confirmation Course Effective Dates Status H ealth Status Informant Acquired Hypothyroidism Confirmed Active Chronic low back pain Confirmed Active Excessive weight gain Confirmed Active Andra thyroiditis Confirmed Active Migraine Confirmed Active Possible SARAHY (obstructive sleep apnea) Confirmed Active Severe obesity (BMI 35.0-39.9) with comorbidity Confirmed Active Social History Social History Type Response Smoking Status Never (less than 100 in lifetime) entered on: 09/06/22 Sex Female Patient Care team information Care Team Personnel Name: Huber Salinas MD Position: [facility] Resident Member Role: PCP Address: Address: [address] [place] [address] [place] [address]- Care Team Related Persons Name: NEEMA MCGHEE Address: home [address] [place] [address]
--- OUTSIDE RECORDS SUMMARY | 2022-09-30 10:01 | XMS_ITS | Continuity of Care Document ---
Author Name Unknown Organization [facility] Address [address] [place] [address]- Care Team Providers Care Poultry Field Service Technician Name Role Phone Brad RICH, Huber Forrester Primary Care Physician [phone] [place] [facility] [place](s): 08/08/22 - 09/07/22 [facility] [address] [place] [id number]- Allergies, Adverse Reactions, Alerts No Known Medication [...] Stop 02/16/23 11:19:00 EST, 11/23/21 11:19:00 EDT, [facility] #[id number], 156.6, cm, 11/23/21 11:09:00 EDT, Height Start Date: 11/23/21 Stop Date: 02/16/23 Status: Ordered Multivitamins with Vitamin B Complex, Vitamin C, Minerals and L- Methylfolate oral capsule 1 capsule, By Mouth, Daily, # 30 capsule, 5 Refills, Maintenance, 09/06/22 12:11:00 EDT, Capsule, [facility] #[id number], Partial fill upon patient request if the prescription is for a schedule II opioid drug., 1 capsule By Mouth Daily, 156.6, cm... Start Date: 09/06/22 Status: Ordered ZyrTEC 10 mg oral tablet 1 tablet = 10 mg, By Mouth, Daily, PRN for allergy symptoms, # 30 tablet, 4 Refills, Maintenance, 09/06/22 11:37:00 EDT, Tablet, [facility] #[id number], Partial fill upon patient request if the [...] Team Personnel Name: Huber Salinas MD Position: [facility] Resident Member Role: PCP Address: Address: [address] [place] [address] [place] [address]- Care Team Related Persons Name: NEEMA MCGHEE Address: home [address] [place] [address]
--- NOTE | 2022-09-30 10:11 | A.OFFVIS_ITS ---
Intake Vital Signs 09/30/22 10:12 Height 5 ft 1 in Weight 210 lb BMI 39.7 Intake Visit Reasons: vaginal itch Intake Note: vaginal itch and a little smell Nutritional Services Cook Required: No Information Interpreted: non-clinical & clinical Survey Rodman: Survey Rodman Present (Alec) Allergies No Known Allergies Allergy (Mild, Verified 09/30/22 10:15) UNKNOWN Medication List - Last Reconciled 09/30/22 by Luiza Whaley CNM cetirizine 10 mg PO DAILY levothyroxine 100 mcg PO DAILY PNV 119-iron fum-folic acid 29 mg iron- 1 mg ( 19) 1 tab PO DAILY Is last menstrual period known: Yes Last menstrual period: 09/21/22 Post menopausal: No HPI vaginal itch HPI Details Patient has sporadic problem with sometimes a vaginal itch and sometimes a little order she wonders if it is BV it comes and goes it is not necessarily related to when she has sex. She is with the same partner that she has been with for years she has 3 children she would be very happy to have 1 more she is trying to eat healthier and lose weight and go for walks every day and she is waiting for her insurance to approve a medication that her primary doctor told her would help her with weight loss she did not qualify for bariatric referral because she is not at the required body mass. She was told years ago that she has PCOS but she sometimes questions that she does get regular periods lately though at 1 time when she was diagnosed she was not getting regular periods and she was heavier at that time she lost weight she attributed it to getting it on her thyroid medication but she also made a concerted effort to lose weight at the time. She had 3 normal vaginal deliveries all with the midwifery team at this hospital had her 1st baby at 17 years old her youngest child is now 6 and she reminded this CNM that I was present at her . She had a history of an abnormal Pap smear last year and subsequently had a colposcopy with Dr. Mejía which turned out normal and I asked her when her next annual and Pap is scheduled and she told me it is for next week. We will do her Pap today as it is due. She is interested in other STI testing vaginally but declines blood work for HIV etc.. [facility] Medical History Genital herpes Hypothyroidism Migraine without aura PCOS (polycystic ovarian syndrome) Family History Mother Heart disease Cervical cancer CVD (cardiovascular disease) Maternal Grandmother Diabetes mellitus Cervical cancer Heart disease CVD (cardiovascular disease) Social History Alcohol intake: never Gender identity: Female Female Reproductive History Menstrual Age of Menarche: 11 Duration of menses: 3-5 days Date of last menstrual period: 09/21/22 control method: none Total pregnancies: 3 Full term: 3 Number of Living Children: 3 Date of last pap smear: 05/08/21 (CIN1 +HPV) History of abnormal pap smear: Yes Physical Exam Vital Signs: BMI result Body Mass Index 39.7 Const General: healthy appearing, comfortable, no acute distress, well developed and alert Nutritional Appearance: average body habitus Orientation/consciousness: patient oriented x3 Limitations: no limitations HEENT Head: Yes normocephalic Neck Neck: Yes normal visual inspection Chest Chest palpation & inspection: normal inspection of the chest Breast/axilla inspection: normal inspection of the breasts and normal inspection of the axillae Breast/axilla palpation: normal palpation of the breasts and normal palpation of the axillae Resp Effort & Inspection: normal respiratory effort GI Inspection: Yes normal to inspection, No Abdominal wall edema and No distended Palpation (GI): Soft to palpation and nontender Other: Her vagina is pink and moist with scant clear discharge cervix is multiparous pink smooth mobile nontender midposition uterus is small slightly retroverted nontender good tone with Kegel. General: Yes bladder normal to palpation External Female Exam: normal external appearance and normal appearance of the urethra Speculum Exam - Vagina: normal appearance of the vagina, normal palpation and normal vaginal discharge Speculum Exam - Cervix: normal appearance of the cervix, normal palpation and nontender Bimanual exam- vagina & uterus: normal bimanual exam, normal palpation, uterine size normal, bladder normal to palpation, consistency normal, normal palpation, uterine mobility normal, uterine shape normal, No Cervical tenderness present, non-tender and no cervical motion tenderness Bimanual Exam- Adnexa, other: normal adnexae, no masses, normal and No adnexal tenderness Neuro General: patient oriented x3 Assessment & Plan Assessment & Plan (1) LGSIL on Pap smear of cervix: Code(s): R87.612 - Low grade squamous intraepithelial lesion on cytologic smear of cervix (LGSIL) (2) Well woman exam with routine gynecological exam: Code(s): Z01.419 - Encounter for gynecological examination (general) (routine) without abnormal findings (3) Screen for STD (sexually transmitted disease): Code(s): Z11.3 - Encounter for screening for infections with a predominantly sexual mode of transmission (4) PCOS (polycystic ovarian syndrome): Code(s): E28.2 - Polycystic ovarian syndrome (5) Hx of abnormal cervical Pap smear: Comment: 05/04/20 pap= neg, neg HPV.- 05/07/21 pap= MIGEL 1, pos hpv, needs colpo (2014= cin1-2, 2015= ascus, 2018=neg.) Code(s): Z87.42 - Personal history of other diseases of the female genital tract (6) Vulvar itching: Code(s): L29.2 - Pruritus vulvae Plan -----Discussed in this visit the following: healthy balanced diet, regular and consistent exercise, getting recommended health screens, doing the best she can for her particular health concerns, kegel exercises, pap smear screening and followup recommendations, mammography screening and SBE, normal changes in cycles in her life stage--- . ---Discussed PCOS in general and specifically about the interplay of the abnormal hormonal milieu related to being overweight, with the elevations of many hormone levels, including testosterone and estrogen, as well as others that contribute to cycles that are anovulatory and therefore prolonged, and when periods do come they come very heavy, and can contribute to lots of cramping, with passage of clots and anemia. Discussed the common symptoms related to the elvated hormonal levels, including increased facial hair, male pattern hair thinning, acne, and increased central abdominal girth. Discussed the interplay with difficulty getting when desired, but still possible, and therefore the need to contracept as appropriate and when needed. Discussed the role of weight loss as the primary, most important, and most likely to succeed, intervention, in achieving healthier status as regards PCOS, and ovulatory regular cycles. Discussed in particular that, possibly more important in many ways to a woman's health then issues with menses and cycles and fertility is the increased risk of pre diabetes and metabolic syndromes that are tied with PCOS and obesity. She is awaiting insurance approval of await lost pill that her doctor has prescribed for her and I discussed the possible role of her history of PCOS in that decision making. Discussed that it would be good to ensure that conception would be safe and allowed while taking at medication and she should review that with her doctor or the pharmacist. But additionally it would be to her benefit to work on losing the weight before the . Discussed that currently we are sending everyone to [facility] for delivery and that many of the CNMs who previously worked in this practice are at [facility]. Additionally the very important relationship to elevated insulin levels, and blood sugars, and high risk of pre diabetes, progressing to diabetes as well as other metabolic syndromes related to this was discussed. Discussed in general terms the challenges of obesity and challenges for her health and efforts she is engaging in to manage this including dietary changes water intake attention to sleep inclusion of a regular exercise have it and dealing with the may need stressors of life that can contribute to obesity in general. Encouraged her to continue in all have her best efforts ---I discussed with pt some of the optimal strategies for planning a , including achieving the best health she can before , including heathy balanced diet, exercise, wt loss to ideal BMI if appropriate, avoiding toxic substances and medications, not smoking, and taking a multivitamin w folic acid daily. Any specific health concerns should be managed before seeking/ putting oneself at risk of pregancy. In addition I reviewed normal cycles, fertility awareness and signs of ovulation, and timing to avoid, and achieve when she feel ready. I also discussed emotional and relationship and support readiness before embarking on . Orders: Orders Bacterial Vaginosis Panel Today Z.419 - Encounter for gynecological examination (general) (routine) without abnormal findings CT NG by PCR Today Z.419 - Encounter for gynecological examination (general) (routine) without abnormal findings Pap Smear Today R87.612 - Low grade squamous intraepithelial lesion on cytologic smear of cervix (LGSIL), Z.419 - Encounter for gynecological examination (general) (routine) without abnormal findings Coding Level of Care Code Est Pt Prev Care 18-39y([id number]) Diagnoses LGSIL on Pap smear of cervix R87.612 Well woman exam with routine gynecological exam Z.419 Screen for STD (sexually transmitted disease) Z11.3 PCOS (polycystic ovarian syndrome) E28.2 Hx of abnormal cervical Pap smear Z87.42 Vulvar itching L29.2
[2022-09-30 10:12] VITALS: BMI 39.7
== END 2022-09-30 10:52 | disposition home or self-care (01) ==
LOC: HO.HWS 09:59
PROVIDERS: Visit Provider Advanced Practice Midwife
DX: Z01.419 Encounter for gynecological examination (general) (routine) without abnormal findings (principal); R87.612 Low grade squamous intraepithelial lesion on cytologic smear of cervix (LGSIL); Z11.3 Encounter for screening for infections with a predominantly sexual mode of transmission; E28.2 Polycystic ovarian syndrome; Z87.42 Personal history of other diseases of the female genital tract; L29.2 Pruritus vulvae
CPT/HCPCS: 99395

== ENCOUNTER 2023-04-25 02:19 | Emergency (ER) | payer OTHER, SELFPAY ==
[2023-04-25 02:29] VITALS: BP 122/64; PULSE 75; RESP 20; TEMP 37.2; O2SAT 98; BMI 43.5
[2023-04-25 02:45] LABS: Basophils Percent Auto 0.3 % (0-2); Eosinophils Absolute Auto 0.3 X10*3/uL (0.0-0.4); Hematocrit 33.6 % (37.0-47.0); Hemoglobin 11.4 g/dl (12.0-16.0); Imm Gran Abs Auto 0.04 X10*3/uL (0.00-0.03); Imm Gran Pct Auto 0.4 % (0.0-0.4); Lymphocytes Absolute Auto 2.7 X10*3/uL (1.2-4.9); Lymphocytes Percent Auto 29.7 % (20-40); MANUAL DIFF FLAG NO; Mean Corpuscular HGB Conc 33.9 g/dl (31.0-35.0); Mean Corpuscular Hemoglobin 28.5 pg (27.0-33.0); Mean Platelet Volume 10.3 fL (9.4-12.3); Monocytes Absolute Auto 0.9 X10*3/uL (0.1-1.2); Monocytes Percent Auto 9.9 % (2-11); Neutrophils Absolute Auto 5.1 x10*3/uL (2.0-8.3); Neutrophils Percent Auto 56.7 % (45-73); Platelet Count 185 X10*3/uL (160-400); Red Cell Distribution Width 13.2 % (11.0-16.0)
--- NOTE | 2023-04-25 02:52 | ED.GENADULT ---
HPI - General Adult General Chief complaint: General Medical Stated complaint: 30 weeks , in extreme pain Time Seen by Provider: 04/25/23 02:22 Source: patient Mode of arrival: ambulatory Limitations: no limitations History of Present Illness HPI narrative: Patient is a at 3 weeks of gestational age. Patient comes to the emergency room complaining of intense contractions. Patient states that yesterday she was having Nolberto Chatman contractions all day intermittently. Patient then went to bed around 21:00. Since then, patient has been having contractions but over the last hour or so she has been having pain/contractions approximately every minute to 5 minutes. Patient denies any fluid leakage or vaginal bleeding. Related Data Home Medications Medication Instructions Recorded Confirmed levothyroxine 100 mcg capsule 100 mcg PO DAILY 03/26/21 09/30/22 cetirizine 10 mg tablet 10 mg PO DAILY 09/30/22 09/30/22 vitamins no.119-iron 1 tab PO DAILY 09/30/22 09/30/22 fumarate 29 mg-folic acid 1 mg tablet ( 19) Previous Rx's Medication Instructions Recorded metronidazole 0.75 % (37.5 mg/5 1 appful vaginal BEDTIME 5 days 10/01/22 gram) vaginal gel #70 grams Allergies Allergy/AdvReac Type Severity Reaction Status Date / Time No Known Allergies Allergy Mild UNKNOWN Verified 09/30/22 10:15 Review of Systems Review of Systems: Constitutional : No Weight loss, No Fever, No Chills, No Night Sweats, No Fatigue, No Malaise ENT/Mouth : No Hearing loss, No Ear Pain, No Nasal Congestion, No Sinus Pain, No Hoarseness, No sore throat, No Rhinorrhea, No Swallowing Difficulty Eyes: No Eye Pain, No Swelling, No Redness, No Foreign Body, No Discharge, No Vision Changes Cardiovascular : No Chest Pain, No SOB, No Dyspnea on Exertion, No Orthopnea, No Edema, No Palpitations Respiratory : No Cough, No Sputum, No Wheezing, No Smoke Exposure, No Dyspnea Gastrointestinal : No Nausea, No Vomiting, No Diarrhea, No Constipation, No abdominal Pain, No Hematochezia, No Melena Genitourinary : No vaginal bleeding or fluid leakage. Complaining of contractions every want to 5 minutes. No Dysuria, No Urinary Frequency, No Hematuria, No Urinary Incontinence, No Urgency, No Flank Pain, No Urinary Flow Changes, No Hesitancy Musculoskeletal : No joint pain, No Myalgias, No Joint Swelling Skin : No Skin Lesions, No rash Neuro : No Weakness, No Numbness, No Paresthesias, No Loss of Consciousness, No Dizziness, No Headache Psych : No Anxiety/Panic, No Depression, No SI/HI/AH/VH, No Social Issues, Heme/Lymph: No Bruising, No Bleeding,No Lymphadenopathy Endocrine : No Polyuria, No Polydipsia, No Temperature Intolerance [facility] Past Medical History Medical History Migraine without aura PCOS (polycystic ovarian syndrome) Genital herpes Hypothyroidism Family History Family History Mother Heart disease Cervical cancer CVD (cardiovascular disease) Maternal Grandmother Diabetes mellitus Cervical cancer Heart disease CVD (cardiovascular disease) Social History Social History Alcohol intake: never Smoked in Last 30 Days: No Use of substances other than those prescribed or required for medical reasons: No Advance Directives: No Advance Directives Information Provided: Yes Patient : Yes Gender identity: Female Physical Exam ED Vital Signs: Vital Signs - 24 hr 04/25/23 02:29 04/25/23 02:57 Temperature 98.9 F Pulse Rate 75 Respiratory Rate 20 20 Blood Pressure 122/64 Pulse Oximetry 98 Oxygen Delivery Method Room Air BMI result Body Mass Index 43.5 Const Other: Appearance: Alert. Oriented X3. No acute distress. Eyes: Pupils equal, round and reactive to light. ENT: Pharynx normal. Neck: Normal inspection. Neck supple. No lymph nodes noted. No crepitus CVS: Normal heart rate and rhythm. Pulses normal. Normal S1 and S2 Respiratory: No respiratory distress. Breath sounds normal. No Wheezing. No rales Abdomen: Soft and nontender. No rigidity. No distention. Gravid uterus. Bedside ultrasound shows a viable fetus in utero, good movement, heart rate between 150 and 160 : No vaginal bleeding. On cervical exam, Patient is approximately 2 cm dilated Skin: Skin warm and dry. Normal skin color. Normal skin turgor. Extremities: No lower extremity edema. No Lacerations. No Rash Neuro: Oriented X 3. No motor deficit. No sensory deficit. Moving all extremities. No slurred speech. CN 2 through 12 grossly intact Psych: calm, cooperative, normal affect Course Course Course Narrative: -all of patient's labs pending -patient receiving IV fluids and 1 mg of IV morphine. -waiting call back from [facility] for transfers Medications Administered Generic Name Dose Route Start Last Admin Trade Name Freq PRN Reason Stop Dose Admin Sodium Chloride 1,000 mls @ 999 mls/hr 04/25/23 02:51 04/25/23 02:55 Ns IVCONT 04/25/23 03:51 999 mls/hr .Q1H1M ONE Administration Discontinued Medications Generic Name Dose Route Start Last Admin Trade Name Freq PRN Reason Stop Dose Admin Morphine Sulfate 1 mg 04/25/23 02:51 04/25/23 02:57 Morphine Sulfate 2 Mg/Ml Cartridge IVPUSH 04/25/23 02:52 1 mg ONCE ONE Administration Protocol Medical Decision Making Medical Decision Making MDM Narrative: -patient's seems very uncomfortable, receiving IV fluids and IV morphine. -all the labs pending -I discussed the patient with OBGYN resident on-call, patient will be transferred to [facility] for monitoring. Accepting physician, Dr. Marrero Differential Diagnosis Differential Diagnoses: The differential diagnosis associated with the presentation includes (Nolberto Chatman contractions, labor, premature uterine contractions) Lab Data 04/25/23 02:40 04/25/23 02:40 Labs: Lab Results 04/25/23 Range/Units 02:40 WBC 9.0 (4.8-10.8) X10*3/uL RBC 4.00 L (4.20-5.50) X10*6/uL Hgb 11.4 L (12.0-16.0) g/dl Hct 33.6 L (37.0-47.0) % MCV 84.0 (80.0-98.0) fL MCH 28.5 (27.0-33.0) pg MCHC 33.9 (31.0-35.0) g/dl RDW 13.2 (11.0-16.0) % Plt Count 185 (160-400) X10*3/uL MPV 10.3 (9.4-12.3) fL Immature Gran % (Auto) 0.4 (0.0-0.4) % Neut % (Auto) 56.7 (45-73) % Lymph % (Auto) 29.7 (20-40) % Antelope % (Auto) 9.9 (2-11) % Eos % (Auto) 3.0 (0-4) % Baso % (Auto) 0.3 (0-2) % Lymph # (Auto) 2.7 (1.2-4.9) X10*3/uL Antelope # (Auto) 0.9 (0.1-1.2) X10*3/uL Eos # (Auto) 0.3 (0.0-0.4) X10*3/uL Baso # (Auto) 0.0 (0.0-0.2) X10*3/uL Abs Immat Gran (auto) 0.04 H (0.00-0.03) X10*3/uL Absolute Neuts (auto) 5.1 (2.0-8.3) x10*3/uL Absolute Nucleated RBC 0.000 (0.0-0.012) X10*3/uL Nucleated RBC % (auto) 0.0 (0.0-0.2) /100WBC Critical Care Time Critical Care Time Critical Care Time: Yes Total Critical Care Time: 60 Attestation: I have personally provided critical care time. Time includes review of lab data, radiology results, discussion with consultants, and monitoring for potential decompensation. Intervention performed as documented. Discharge Plan Discharge Clinical Impression: Premature uterine contractions Patient Disposition: [facility] Transfer Details: [facility] Prescriptions: No Action metronidazole 0.75 % (37.5mg/5 gram) gel 1 appful vaginal BEDTIME 5 Days Qty: 70 0RF levothyroxine 100 mcg capsule 100 mcg PO DAILY 19 29 mg iron- 1 mg tablet 1 tab PO DAILY cetirizine 10 mg tablet 10 mg PO DAILY
[2023-04-25] MEDS: 0.9 % Sodium Chloride 1,000 ML 999 ML IVCONT (02:55)
--- NOTE | 2023-04-25 02:55 | PC.NURSE ---
pt from home reporting since 9pm episodes of burning in the vagina and burning in the anus, pt reports lower abdominal cramping with contractions 1 minute apart. pt is at this time, expected due date is 06/28/2023. heart tones obtained at 0235 136bmp. at bedside preforming vaginal exam and ultrasound, baby active at this time per provider. 20G established in the right ac. labs obtained and sent to lab.
[2023-04-25 02:57] VITALS: RESP 20
[2023-04-25] MEDS: Morphine Sulfate 2 MG/ML CARTRIDGE 1 MG IVPUSH (02:57)
[2023-04-25 03:05] LABS: Alanine Aminotransferase 19 U/L (0-31); Albumin Level 3.2 g/dL (3.5-5.0); Alkaline Phosphatase 132 U/L (39-117); Anion Gap 13 (12-20); Aspartate Amino Transferase 17 U/L (5-31); Bilirubin Direct 0.1 mg/dL (0.0-0.5); Bilirubin Total 0.3 mg/dL (0.0-1.0); Blood Urea Nitrogen 8 mg/dL (9-16); Carbon Dioxide 22 mmol/L (22-29); Chloride 107 mmol/L (96-108); Creatinine Clr Calc Pharmacy 128.2; Estimated Glomerular Filt Rate > 60; Glucose Random 89 mg/dL (60-115); Potassium 3.5 mmol/L (3.3-5.1); Sodium 138 mmol/L (135-145); Total Protein 6.5 g/dL (6.5-8.0)
--- NOTE | 2023-04-25 03:09 | PC.NURSE ---
report given to Margarita CHRISTIE at [facility], no questions at this time.
--- NOTE | 2023-04-25 03:33 | PC.NURSE ---
ems at bedside to transport pt to [facility].
[2023-04-25 03:34] VITALS: BP 112/61; PULSE 70; RESP 16; TEMP 37; O2SAT 100
== END 2023-04-25 03:35 | disposition short-term general hospital (02) ==
PROVIDERS: Emergency Provider Emergency Medicine
DX: O47.00 False labor before 37 completed weeks of gestation, unspecified trimester (principal)
CPT/HCPCS: 36415; 80048; 80076; 85025; 86900; 86901; 96374; 99284; 99285; J2270

== ENCOUNTER 2023-09-22 10:02 | Outpatient (REF) | payer OTHER, SELFPAY ==
[2023-09-25 13:29] LABS: HPV mRNA E6/E7 Detected (Not Detected)
== END 2023-09-22 10:03 | disposition home or self-care (01) ==
LOC: HO.LNP 10:02
PROVIDERS: Visit Provider Obstetrics & Gynecology
DX: R87.612 Low grade squamous intraepithelial lesion on cytologic smear of cervix (LGSIL) (principal)
CPT/HCPCS: 57454; 81025; 87624; 88175; 88305

== ENCOUNTER 2023-09-22 10:02 | Outpatient (AMB) | payer OTHER, SELFPAY ==
--- NOTE | 2023-09-22 10:25 | MHC.OFFVIS ---
Vital Signs 09/22/23 10:37 Height 5 ft 1 in BP 116/66 Intake Visit Reasons: colposcopy Demurrage Worker Required: No Information Interpreted: non-clinical & clinical Architectural Project Manager: Architectural Project Manager Present (Rosa CAMPOS) Accompanied by: Self / Same As Patient Allergies No Known Allergies Allergy (Mild, Verified 09/22/23 10:38) UNKNOWN HPI Comments Details: Presenting referred for colposcopy for Pap smear done in 10/23 showing LSIL HPV E6 E7 positive, HPV 16/18/45 negative PFSH Medical History Migraine without aura PCOS (polycystic ovarian syndrome) Genital herpes Hypothyroidism Family History Mother Heart disease Cervical cancer CVD (cardiovascular disease) Maternal Grandmother Diabetes mellitus Cervical cancer Heart disease CVD (cardiovascular disease) Social History Alcohol intake: never Gender identity: Female Female Reproductive History Menstrual Age of Menarche: 11 Office Procedures Colposcopy Colposcopy: Pre-Procedure Counseling: Before beginning the procedure, I conducted comprehensive counseling with the patient. We thoroughly discussed the procedure itself, including its details, alternatives, and all associated risks. This included but not limited to the following complications such as bleeding, infection, and injury to the vagina, bladder, and vessels, as well as the potential need for transfusion with all its associated risks. Subsequently, the patient sign the consent. Pap smear result: LSIL/HPV E6 E7 positive. Urine test in office = Negative Procedure: During the procedure, the following steps were performed: A speculum was inserted, and acetic acid was applied. Colposcopy was conducted, allowing visualization of the transformation zone. Acetowhite lesions were identified at the 11+1 o'clock position. Cervical biopsies were obtained from the 11+1 o'clock position, followed by an endocervical curettage (ECC). Vaginoscopy of the upper vagina revealed no evidence of aceto-white lesions. Hemostasis was achieved using Monsel solution, and the patient tolerated the procedure well. Post-Procedure Instructions: The patient was advised to promptly contact the office or the after hours answering service or go to the emergency room if experiencing a temperature exceeding 100.4?F, abdominal pain, nausea/vomiting, or bleeding. Additionally, the patient was instructed to abstain from vaginal intercourse and bathtub use. The patient confirmed understanding of these instructions. Discharge Instructions: The patient was instructed to schedule a follow-up appointment in 2 weeks for further evaluation and management. Please note that this note was generated using a voice recognition program, and errors may have occurred during clerk. 35870-Aoocmyxis of cervix including upper vagina with biopsy and ECC Procedure code (CPT) selection complete Results AMB Test Urine AMB Test Urine Negative Last Edit by Rosa Cheung CMA on 09/22/23 10:37 Assessment & Plan Assessment & Plan (1) LGSIL on Pap smear of cervix: Comment: HPV E6/E7 positive Code(s): R87.612 - Low grade squamous intraepithelial lesion on cytologic smear of cervix (LGSIL) Category: Medical Plan: Co testing repeating since co testing was done in 10/23, colposcopy done, see procedure note Orders: Orders AMB HCG Urine Test Today Z32.02 - Encounter for test, result negative AMB Colposcopy Today R87.612 - Low grade squamous intraepithelial lesion on cytologic smear of cervix (LGSIL) Coding Level of Care Code Est Pt Level 3 (42617) Procedure Only Diagnoses LGSIL on Pap smear of cervix R87.612 CPT Codes Colposcopy - CPT: 80360-Meiczcjse of cervix including upper vagina with biopsy and ECC ([id number])
[2023-09-22 10:37] VITALS: BP 116/66
== END 2023-09-22 11:02 | disposition home or self-care (01) ==
PROVIDERS: Visit Provider Obstetrics & Gynecology
DX: R87.612 Low grade squamous intraepithelial lesion on cytologic smear of cervix (LGSIL) (principal); Z32.02 Encounter for pregnancy test, result negative
CPT/HCPCS: 57454

== ENCOUNTER 2023-09-25 13:42 | Outpatient (AMB) | payer OTHER, SELFPAY ==
--- NOTE | 2023-09-25 13:42 | A.OFFVIS_ITS ---
Intake Visit Reasons: colpo results Allergies No Known Allergies Allergy (Mild, Verified 09/22/23 10:38) UNKNOWN HPI Comments Details: Presenting post colpo for follow-up. The patient is doing well with no complaints. The pathology showed the following: A. Endocervix, curettage: - Few fragments of endocervical mucosa and epithelium within normal limits. - Scant fragment of benign endometrial tissue. B. Cervix, 1 o'clock, biopsy: - Low-grade squamous intraepithelial lesion (MIGEL 1). - Endocervical epithelium within normal limits. C. Cervix, 11 o'clock, biopsy: Mildly inflamed endocervical mucosa, otherwise within normal limits; no squamous epithelium identified. COMMENT: The findings in part D are concordant with the patient's recent Pap/cytology specimen ([id number]; LSIL with positive HR HPV) - slide reviewed. Pap smear done in 09/23 showed LSIL HPV E6 E7 positive, HPV 16/18/45 still pending [facility] Medical History (Updated 09/25/23 @ 13:53 by Issac Mejía MD) Dysplasia of cervix, low grade (MIGEL 1) Migraine without aura PCOS (polycystic ovarian syndrome) Genital herpes Hypothyroidism Family History Mother Heart disease Cervical cancer CVD (cardiovascular disease) Maternal Grandmother Diabetes mellitus Cervical cancer Heart disease CVD (cardiovascular disease) Social History Alcohol intake: never Gender identity: Female Female Reproductive History Menstrual Age of Menarche: 11 Review of Systems Const All systems reviewed & are unremarkable except as noted in HPI and below Reports as per HPI and Reports no additional complaints GI Reports no additional complaints Reports no additional complaints Telehealth Telehealth Telehealth Platform: Telephone Location of provider rendering services: practice address Location of patient: address on file Patient Identification confirmed using: Name, : Yes Telehealth method: video Patient verbally consented to treatment: Yes Patient verbally consented to billing insurance company: Yes Patient informed of any privacy concerns related to visit: Yes Assessment & Plan Assessment & Plan (1) Dysplasia of cervix, low grade (MIGEL 1): Comment: 05/21 co testing negative 05/22 LSIL, colpo/biopsy negative 10/23 LSIL no colpo done 09/23 LSIL HPV positive, colpo/biopsy/ECC MIGEL 1 Code(s): N87.0 - Mild cervical dysplasia Category: Medical Plan: Discussed with the patient the pathology results of the colposcopy biopsies & e ndocervical curettage ( mild dysplasia-MIGEL 1). Discussed with the patient the sensitivity specificity, positive and negative predictive value in detecting cervical cancer in addition discussed the regression, persistence and progression rates. Although the patient had LSIL on Pap smear in 05/22, and no previous biopsy-proven MIGEL 1 , Recommended co-testing in 12 months, if cytology and or HPV are abnormal will proceed was colposcopy biopsy and endocervical curettage, if lesions gets worse or stays persistent for 2 years will proceed with loop electric excision procedure. Instructions given to the patient to schedule a co test appointment in 1 year. All questions answered the patient verbalized understanding. I spent a total of 20 minutes reviewing the chart, talking to the patient via P[employer]hape ideo and documenting in the medical record. Coding Level of Care Code Tele Est Pt Level 1 (99509) Diagnoses Dysplasia of cervix, low grade (MIGEL 1) N87.0
--- OUTSIDE RECORDS SUMMARY | 2023-09-25 13:43 | XMS_ITS | Continuity of Care Document ---
Author Organization [facility] Address [address] [place] [address]- Care Team Providers Care Record Press Supervisor Name Role Phone Brad RICH, Huber Cuellarpushpa Primary Care Physician Encounter [facility] Date(s): 10/25/22 - 12/22/[address] [address]- Attending Physician: Not on Staff, Attending MD Allergies, Adverse Reactions, Alerts No Known Medication Allergies Immunizations Given and Recorded Vaccine Date Status Refusal Reason influenza virus vaccine, inactivated 03/30/19 Give n influenza virus vaccine, inactivated 04/05/15 Give n tetanus/diphtheria/pertussis, acel(Tdap) 07/08/14 Given Medications levothyroxine 0.1 mg oral tablet See Instructions, 1 tablet By Mouth from Friday to Friday and two tablets on Friday and Friday, 90 days supply, # 102 tablet, 4 Refills, Physician Stop 01/28/23 8:15:00 EST, 12/17/22 8:14:00 EDT, [facility] #[id number], 156.6, cm, 11/27/22 9:34... Start Date: 12/17/22 Stop Date: 01/28/23 Status: Ordered Multivitamins with Vitamin B Complex, Vitamin C, Minerals and L- Methylfolate oral capsule 1 capsule, By Mouth, Daily, # 90 capsule, 5 Refills, Maintenance, 09/11/22 17:02:00 EDT, [facility], [facility] #[id number], Partial fill upon patient request if the prescription is for a schedule II opioid drug., 1 capsule By Mouth Daily,x90 days,... Start Date: 09/11/22 Stop Date: 03/04/24 Status: Ordered pyridoxine 25 mg oral tablet 1 tablet = 25 mg, By Mouth, 3 times a day, PRN Nausea & Vomiting, # 30 tablet, 0 Refills, Maintenance, 11/27/22 16:46:00 EDT, Tablet, [facility] #[id number], Partial fill upon patient request if the prescription is for a schedule II opioid drug.,... Start Date: 11/27/22 Status: Ordered ZyrTEC 10 mg oral tablet 1 tablet = 10 mg, By Mouth, Daily, PRN for allergy symptoms, # 30 tablet, 4 Refills, Maintenance, 09/06/22 11:37:00 EDT, Tablet, [facility] #[id number], Partial fill upon patient request if the prescription is for a schedule II opioid drug., 156.... Start Date: 09/06/22 Status: Ordered Problem List Condition Confirmation Course Effective Dates Status H ealth Status Informant H/O Abnormal Pap smear of cervix Confirmed Active Environmental and seasonal allergies Confirmed Active Chronic low back pain Confirmed Active H/O Constipation Confirmed Active FHx: genetic disorder Confirmed Active Genital HSV Confirmed Active H/O Varicella as a child Confirmed Active Andra thyroiditis Confirmed Active H/O Kidney stones Confirmed Active Abnormal laboratory test Confirmed Active H/O Left lower quadrant abdominal pain Confirmed Active H/O Migraine Confirmed Active H/O SARAHY Confirmed Active Severe obesity (BMI 35.0-39.9) with comorbidity Confirmed Active Social History Social History Type Response Smoking Status Never (less than 100 in lifetime) entered on: 09/06/22 Sex Female Patient Care team information Care Team Personnel Name: Brad RICH, Huber Forrester Position: [facility] Resident Member Role: PCP Address: Address: [address] [facility] [place] [address]- Care Team Related Persons Name: NEEMA MCGHEE Address: home [address] [place] [address]
--- OUTSIDE RECORDS SUMMARY | 2023-09-25 13:43 | XMS_ITS | Continuity of Care Document ---
Author Organization [facility] Address [address] [place] [address]- Care Team Providers Care Keyboard Instrument Tuner Name Role Phone AlexandreKandi mayer DO Primary Care Physician [phone] Encounter [facility] Date(s): 08/12/23 - 09/11/23 [facility] [address] [place], [place] [address] Allergies, Adverse Reactions, Alerts No Known Medication Allergies Immunizations Given and Recorded Vaccine Date Status Refusal Reason tetanus/diphtheria/pertussis, acel(Tdap) 04/18/23 Given tetanus/diphtheria/pertussis, acel(Tdap) 07/08/14 Given influenza virus vaccine, inactivated 12/27/22 Give n influenza virus vaccine, inactivated 03/30/19 Give n influenza virus vaccine, inactivated 04/05/15 Give n Medications aspirin 81 mg oral delayed release tablet See Instructions, 2 tablet By Mouth Daily at bedtime, # 60 tablet, Refills 8, Tot. Refills 8, Maintenance, 12/27/22 9:43:00 EDT, Instructions Replace Required Details, Route to Pharmacy Electronically, [facility] #[id number], Partial fill upon pa... Start Date: 12/27/22 Status: Ordered levothyroxine 137 mcg (0.137 mg) oral capsule 1 capsule = 137 mcg, By Mouth, Daily, # 30 capsule, 11 Refills, Maintenance, 02/21/23 15:47:00 EST,Capsule, [facility] #[id number], Partial fill upon patient request if the prescription is for a schedule II opioid drug., 156.6, cm, 02/21/23 10:1... Start Date: 02/21/23 Status: Ordered norethindrone 0.35 mg oral tablet 1 tablet = 0.35 mg, By Mouth, Daily, # 84 tablet, 0 Refills, Maintenance, 06/24/23 6:52:00 EDT, Tablet, [facility] #[id number], Partial fill upon patient request if the prescription is for a schedule II opioid drug., 155, cm, 06/24/23 0:00:00 EDT... Start Date: 06/24/23 Status: Ordered NuvaRing 0.015 mg-0.120 mg vaginal ring 1 each, Vaginally, Every 28 days, # 3 each, 0 Refills, Maintenance, 08/18/23 8:52:00 EDT, [facility] #[id number], Partial fill upon patient request if the prescription is for a schedule II opioid drug., 1 each Vaginally Every 28 days, 155, cm, 06... Start Date: 08/18/23 Status: Ordered Multivitamins with Vitamin B Complex, Vitamin C, Minerals and L- Methylfolate oral capsule 1 capsule, By Mouth, Daily, # 90 capsule, 5 Refills, Maintenance, 09/11/22 17:02:00 EDT, Capsule, [facility] #[id number], Partial fill upon patient request if the prescription is for a schedule II opioid drug., 1 capsule By Mouth Daily,x90 days,... Start Date: 09/11/22 Stop Date: 03/04/24 Status: Ordered pyridoxine 25 mg oral tablet 1 tablet = 25 mg, By Mouth, 3 times a day, PRN Nausea & Vomiting, # 30 tablet, 0 Refills, Maintenance, 11/27/22 16:46:00 EDT, Tablet, [facility] #[id number], Partial fill upon patient request if the prescription is for a schedule II opioid drug.,... Start Date: 11/27/22 Status: Ordered Slow Fe (as elemental iron) 45 mg oral tablet, extended release 1 tablet = 45 mg, By Mouth, Daily, # 30 tablet, 2 Refills, Maintenance, 05/16/23 9:05:00 EDT, [facility] #[id number], Partial fill upon patient request if the prescription is for a schedule II opioid drug., 155, cm, 05/16/23 8:54:00 EDT, Height,... Start Date: 05/16/23 Status: Ordered ursodiol 300 mg oral capsule 300 mg, 1, capsule, By Mouth, 3 times a day, # 90 capsule, Refills 3, Tot. Refills 3, Maintenance, 04/15/23 10:22:00 EST, Route to Pharmacy Electronically, [facility] #[id number], Partial fill upon patient request if the prescription is for a sujit... Start Date: 04/15/23 Status: Ordered Valtrex 500 mg oral tablet 500 mg, 1, tablet, By Mouth, Every 12 hours, # 60 tablet, Refills 0, Tot. Refills 0, Maintenance, 06/13/23 10:49:00 EDT, Route to Pharmacy Electronically, [facility] #[id number], Partial fill upon patient request if the prescription is for a sche... Start Date: 06/13/23 Status: Ordered ZyrTEC 10 mg oral tablet 1 tablet = 10 mg, By Mouth, Daily, PRN for allergy symptoms, # 30 tablet, 4 Refills, Maintenance, 09/06/22 11:37:00 EDT, Tablet, [facility] #[id number], Partial fill upon patient request if the prescription is for a schedule II opioid drug., 156.... Start Date: 09/06/22 Status: Ordered Problem List Condition Confirmation Course Effective Dates Status H ealth Status Informant Environmental and seasonal allergies Confirmed Active BMI 40.0-44.9, adult Confirmed Active Chronic low back pain Confirmed Active FHx: genetic disorder Confirmed Active Genital HSV Confirmed Active Andra thyroiditis Confirmed Active Low grade squamous intraepithelial lesion (LGSIL) on cervical Pap smear Confirmed Active H/O SARAHY Confirmed Active Polyhydramnios Confirmed Active Severe obesity Confirmed Active Request for sterilization Confirmed Active Social History Social History Type Response Smoking Status Never (less than 100 in lifetime) entered on: 09/06/22 Sex Female Patient Care team information Care Team Personnel Name: Kandi Schroeder DO Position: S Resident Member Role: PCP Address: Address: [address] [place] [id number]- Care Team Related Persons Name: KANDI MARIE Address: [address] Address: home [address] [place] [address] [place] Name: NEEMA MCGHEE Address: home [address] [place] [id number]
--- OUTSIDE RECORDS SUMMARY | 2023-09-25 13:44 | XMS_ITS | Continuity of Care Document ---
Author Organization [facility] Address [address] [facility], [address] [place] [address]- Care Team Providers Care Occup Therapist Name Role Phone Brad RICH, Huber Forrester Primary Care Physician [place] [facility] [place] 05/21/23 - 06/20/23 [facility] [address], [address] [place] [address]- Allergies, Adverse Reactions, Alerts No Known Medication [...] Replace Required Details, Route to Pharmacy Electronically, [email or web address] #[id number], Partial fill upon pa... Start Date: 12/27/22 Status: Ordered levothyroxine 137 mcg (0.137 mg) oral capsule 1 capsule = 137 mcg, By Mouth, Daily, # 30 capsule, 11 Refills, Maintenance, 02/21/23 15:47:00 EST,Capsule, [email or web address] #[id number], Partial fill upon patient request if the prescription is for a schedule II opioid drug., 156.6, cm, 02/21/23 10:1... Start Date: 02/21/23 Status: Ordered Multivitamins with Vitamin B Complex, Vitamin C, Minerals and L- Methylfolate oral capsule 1 capsule, By Mouth, Daily, # 90 capsule, 5 Refills, Maintenance, 09/11/22 17:02:00 EDT, Capsule, [email or web address] #[id number], Partial fill upon patient request if the prescription is for a schedule II opioid drug., 1 capsule By Mouth Daily,x90 days,... Start Date: 09/11/22 Stop Date: 03/04/24 Status: Ordered pyridoxine 25 mg oral tablet 1 tablet = 25 mg, By Mouth, 3 times a day, PRN Nausea & Vomiting, # 30 tablet, 0 Refills, Maintenance, 11/27/22 16:46:00 EDT, Tablet, [email or web address] #[id number], Partial fill upon patient request if the prescription is for a schedule II opioid drug.,... Start Date: 11/27/22 Status: Ordered Slow Fe (as elemental iron) 45 mg oral tablet, extended release 1 tablet = 45 mg, By Mouth, Daily, # 30 tablet, 2 Refills, Maintenance, 05/16/23 9:05:00 EDT, [email or web address] #[id number], Partial fill upon patient request if the prescription is for a schedule II opioid drug., 155, cm, 05/16/23 8:54:00 EDT, Height,... Start Date: 05/16/23 Status: Ordered ursodiol 300 mg oral capsule 300 mg, 1, capsule, By Mouth, 3 times a day, # 90 capsule, Refills 3, Tot. Refills 3, Maintenance, 04/15/23 10:22:00 EST, Route to Pharmacy Electronically, [email or web address] #[id number], Partial fill upon patient request if the prescription is for a sujit... Start Date: 04/15/23 Status: Ordered Valtrex 500 mg oral tablet 500 mg, 1, tablet, By Mouth, Every 12 hours, # 60 tablet, Refills 0, Tot. Refills 0, Maintenance, 06/13/23 10:49:00 EDT, Route to Pharmacy Electronically, [email or web address] #[id number], Partial fill upon patient request if the prescription is for a sche... Start Date: 06/13/23 Status: Ordered ZyrTEC 10 mg oral tablet 1 tablet = 10 mg, By Mouth, Daily, PRN for allergy symptoms, # 30 tablet, 4 Refills, Maintenance, 09/06/22 11:37:00 EDT, Tablet, [id number], Partial fill upon patient request if the prescription is for a schedule II opioid drug., 156.... Start Date: 09/06/22 Status: Ordered Problem List Condition Confirmation Course Effective Dates Status H ealth Status Informant H/O Abnormal Pap smear of cervix Confirmed Active Environmental and seasonal allergies Confirmed Active Anemia in Confirmed Active BMI 40.0-44.9, adult Confirmed Active Chronic low back pain Confirmed Active H/O Constipation Confirmed Active FHx: genetic disorder Confirmed Active Genital HSV Confirmed Active GBS carrier Confirmed Active H/O Varicella as a child Confirmed Active Andra thyroiditis Confirmed Active H/O Kidney stones Confirmed Active Itching of both hands Confirmed Active Abnormal laboratory test Confirmed Active H/O Left lower quadrant abdominal pain Confirmed Active Low grade squamous intraepithelial lesion (LGSIL) on cervical Pap smear Confirmed Active H/O Migraine Confirmed Active H/O SARAHY Confirmed Active Polyhydramnios Confirmed Active Confirmed Active Request for sterilization Confirmed Active Social History Social History Type Response Smoking Status Never (less than 100 in lifetime) entered on: 09/06/22 Sex Female Patient Care team information Care Team Personnel Name: Huber Salinas MD Position: [facility] Resident Member Role: PCP Address: Address: [address] [place] [address] [place] [address]- Care Team Related Persons Name: NEEMA MCGHEE Address: home [address] [place] [address]
--- OUTSIDE RECORDS SUMMARY | 2023-09-25 13:44 | XMS_ITS | Continuity of Care Document ---
Author Organization [facility] ter Address [address] [place] [id number]- Care Team Providers Care Security Auditor Name Role Phone Brad RICH, Huber Forrester Primary Care Physician Encounter [facility] Date(s): 06/21/23 - 06/24/[address] [id number] Discharge Disposition: A-D/C Home Attending Physician: Jeannette Lopez MD Admitting Physician: Jeannette Lopez MD Referring Physician: Jessica Aguayo MD Allergies, Adverse Reactions, Alerts No Known [...] Replace Required Details, Route to Pharmacy Electronically, [facility] #[id number], Partial fill upon pa... Start Date: 12/27/22 Status: Ordered levothyroxine 137 mcg (0.137 mg) oral capsule 1 capsule = 137 mcg, By Mouth, Daily, # 30 capsule, 11 Refills, Maintenance, 02/21/23 15:47:00 EST,Capsule, [facility] #[id number], Partial fill upon patient request if the prescription is for a schedule II opioid drug., 156.6, cm, 02/21/23 10:1... Start Date: 02/21/23 Status: Ordered norethindrone 0.35 mg oral tablet 1 tablet = 0.35 mg, By Mouth, Daily, # 84 tablet, 0 Refills, Maintenance, 06/24/23 6:52:00 EDT, Tablet, [facility] #[id number], Partial fill upon patient request if the prescription is for a schedule II opioid drug., 155, cm, 06/24/23 0:00:00 EDT... Start Date: 06/24/23 Status: Ordered Multivitamins with Vitamin B Complex, Vitamin C, Minerals and L- Methylfolate oral capsule 1 capsule, By Mouth, Daily, # 90 capsule, 5 Refills, Maintenance, 09/11/22 17:02:00 EDT, Capsule, [facility] #[id number], Partial fill upon patient request if the prescription is for a schedule II opioid drug., 1 capsule By Mouth Daily,x90 days,... Start Date: 09/11/22 Stop Date: 03/04/24 Status: Ordered pyridoxine 25 mg oral tablet 1 tablet = 25 mg, By Mouth, 3 times a day, PRN Nausea & Vomiting, # 30 tablet, 0 Refills, Maintenance, 11/27/22 16:46:00 EDT, Tablet, [facility] #[id number], Partial fill upon patient request if the prescription is for a schedule II opioid drug.,... Start Date: 11/27/22 Status: Ordered Slow Fe (as elemental iron) 45 mg oral tablet, extended release 1 tablet = 45 mg, By Mouth, Daily, # 30 tablet, 2 Refills, Maintenance, 05/16/23 9:05:00 EDT, [facility] #[id number], Partial fill upon patient request if the prescription is for a schedule II opioid drug., 155, cm, 05/16/23 8:54:00 EDT, Height,... Start Date: 05/16/23 Status: Ordered ursodiol 300 mg oral capsule 300 mg, 1, capsule, By Mouth, 3 times a day, # 90 capsule, Refills 3, Tot. Refills 3, Maintenance, 04/15/23 10:22:00 EST, Route to Pharmacy Electronically, [facility] #[id number], Partial fill upon patient request if the prescription is for a sujit... Start Date: 04/15/23 Status: Ordered Valtrex 500 mg oral tablet 500 mg, 1, tablet, By Mouth, Every 12 hours, # 60 tablet, Refills 0, Tot. Refills 0, Maintenance, 06/13/23 10:49:00 EDT, Route to Pharmacy Electronically, [facility] #[id number], Partial fill upon patient request if the prescription is for a sche... Start Date: 06/13/23 Status: Ordered ZyrTEC 10 mg oral tablet 1 tablet = 10 mg, By Mouth, Daily, PRN for allergy symptoms, # 30 tablet, 4 Refills, Maintenance, 09/06/22 11:37:00 EDT, Tablet, [facility] #[id number], Partial fill upon patient request if the [...] H/O SARAHY Confirmed Active Polyhydramnios Confirmed Active Request for sterilization Confirmed Active Vital Signs Most recent to oldest [Reference Range]: 1 2 3 Height 155 cm (06/24/23 9:19 AM) 155 cm (06/24/23 12:00 AM) 155 cm (06/23/23 3:37 PM) Weight 111 kg (06/21/23 9:00 PM) Oxygen Saturation [94-100 %] 98 % (06/24/23 12:00 AM) 98 % (06/23/23 12:30 AM) 98 % (06/22/23 8:37 PM) Pulse Rate [55-90 bpm] 65 bpm (06/24/23 9:19 AM) 67 bpm (06/24/23 12:00 AM) 72 bpm (06/23/23 3:37 PM) Body Mass Index [18.5-24.99 kg/m2] 46.2 kg/m2 *>HHI* (06/21/23 9:00 PM) Blood Pressure [90-138/55-84 mm Hg] 99/84mm Hg (06/24/23 9:19 AM) 101/59mm Hg (06/24/23 12:00 AM) 98/52mm Hg (06/23/23 3:37 PM) Respiratory Rate [16-30 br/min] 18 br/min (06/24/23 9:19 AM) 18 br/min (06/24/23 12:00 AM) 19 br/min (06/23/23 3:37 PM) Temperature [96.8-100.4 DegF] 97.9 DegF (06/24/23 9:19 AM) 98.4 DegF (06/24/23 12:00 AM) 97.7 DegF (06/23/23 3:37 PM) Mode of Delivery (Oxygen) Room air (06/24/23 12:00 AM) Room air (06/22/23 8:37 PM) Room air (06/21/23 9:00 PM) Blood pressure sites Arm, left (06/24/23 9:19 AM) Arm, left (06/23/23 3:37 PM) Arm, left (06/23/23 9:28 AM) Temperature Route Oral (06/24/23 9:19 AM) Oral (06/24/23 12:00 AM) Oral (06/23/23 3:37 PM) Dry Weight 111 kg (06/21/23 9:00 PM) Weight Obtained Via Patient/family state d (06/21/23 9:00 PM) Dry Weight Obtained Via Patient/family s tated (06/21/23 9:00 PM) Social History Social History Type Response Smoking Status Never (less than 100 in lifetime) entered on: 09/06/22 Sex Female History and physical note * Pat Bains MD: PERFORM Event Display: History and Physical Hospital Authored Date: Patient: ??SUAREZHERLINDA ? Age:??33 Years?Sex:??Female?:??1990?? OB Reason for Admission OB Reason for Admission Reason for admission: Induction of labor Reason for Induction: Cholestasis LMP/EGA/JIHAN Gestational Age (EGA) and JIHAN? * Note: EGA calculated as of 06/21/2023 ?? JIHAN:??06/28/2023?EGA*:??39 weeks ? History?(3,0,0,3)?Method:??Last Menstrual Period??(09/21/2022) History of Present Illness Herlinda??Mathieu is a 33 yo at 39+0 weeks, GBS(+), Rh(+), rubella immune, presenting for IOL forsuspected cholestasis.?? Review of Systems Per HPI Physical Exam Vitals & Measurements T:??97.8?F?? HR:??79??(Peripheral)?? RR:??16?? BP:??107/55?? SpO2:??100%?? HT:??155??cm?? WT:??111??kg?? BMI:??46.2?? Constitutional:??Patient is laying supine in no acute distress. Pulmonary:??No signs of respiratory distress. Cardiovascular:??No signs of fluid overload. Abdominal:??Soft, gravid, non-tender. Gynecologic:??Normal vulva without lesions. Extremities:??No peripheral edema. No calf asymmetry or tenderness. Skin:??No rash or jaundice. Normal for ethnicity. Neurological/Psychiatric:??Appearance appropriate, mood and affect stable. ?? Sterile Vaginal Exam:??2.5/60/-3 ?? Sterile speculum exam: - Negative??SSE??with??no cervical or vaginal??lesions ?? Presentation: VTX by bedside U/S EFW: 4000g Membrane Status:??intact FHT: Baseline 115 / moderate variability / +acels ??/ no decelerations OB Assessment Baby A Baseline:115 Baseline Description:Normal, 110-160 bpm Baseline Variability:Moderate variability Accelerations:Present Deceleration:None Activity:Present Membrane Status:Intact Uterine Number of Contractions per 10 minutes0 Monitor Mode, UterineExternal Cervical Cervical Dilatation2 cm Cervical Mhytrhhqxv38% Station-3 Assessment/Plan Assessment:??Herlinda??Mathieu is a 33 yo at 39+0 weeks, GBS(+), Rh(+), rubella immune, presenting for IOL for suspected cholestasis.?? 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 FHT reactive. [place] irritable. VTX. EFW 4000g. Pelvis proven to 3900g. SVE 2.5/60/-3. Dangelo score 5. Plan to administer misoprostol at this time. Pitocin when cervix more favorable. Discussed with Dr. Saldivar, attending. LDRP team aware. ?? Andra thyroiditis (E06.3):? - Follows with endocrinology - Continue Levothyroxine 137 mcg daily - Repeat thyroid studies 05/22/23 within normal limits ?? Encounter for induction of labor (Z34.90):? - FHT reactive - PPH Risk Assessment:??High?? - U/S confirms VTX?? - GBS pos: PCN 5mU IV + 3mU IV q4h - Plan for??Induction: MISO --> pitocin - Continuous EFM and toco - Labor coping: PRN - Regular maternal diet (p)??CBC &??T&S and 2 units pRBCs on hold ?? plans: - Wants PPTL ?? History of kidney stones (Z87.442):? - s/p ureteroscopy, laser lithotripsy, and stent insertion 05/01/23, with??stent removal 05/06/23 - Denies recurrent symptoms ?? FHx: genetic disorder (Z84.89):? - Son with DiGeorge Syndrome, patient unsure if she or FOB are carriers - s/p Genetic consults in 2013 ?? 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 - Valtrex 500 mg BID dosing?? - Denies current lesions ?? 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 - Plan for penicillin in active labor or with rupture of membranes, patient aware ?? Anemia in (O99.019):? - Hgb 10.9 on 05/23/23 ?? Itching of both hands (L29.9):? - 4/5: Bile acids 4.4, AST/ALT - Patient not currently taking ursodiol - Delivery for this indication ?? 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 - Pap smear LSIL/HPV positive 08/2022 - ( ) Plan for colposcopy ?? Request for sterilization (Z30.2):? -??[facility]??and[facility]??sterilization consents signed 05/30/23 ?? Polyhydramnios (O40.9XX0):? - mild poly noted on 06/12 BPP - mild poly again on BPP 06/16 ?? OB History History?(3,0,0,3)? # 1 ?Baby 1 ?Outcome Date:??08/09/2007?Outcome or Result:??Vaginal ?Gest Age:??Fullterm ? Outcome:??Live ? Sex:??Male?Wt:?2920 g ?Hospital:??[facility] ?? # 2 ?Baby 1 ?Outcome Date:??02/18/2014?Outcome or Result:??Vaginal ?Gest Age:??Fullterm ? Outcome:??Live ? Sex:??Female?Wt:?3799 g ?Hospital:??[facility] ?? # 3 ?Baby 1 ?Outcome Date:??09/16/2016?Outcome or Result:??Vaginal ?Gest Age:??Fullterm ? Outcome:??Live ? Sex:??Female?Wt:?3714 g ?Hospital:??[facility] Labs Labs Labs & Tests Antibody Screen: Negative (05/01/23) Bile Acids Total: 4.4 umol/L (06/06/23) Blood Type: O Positive (05/01/23) Chlamydia Trachomatis Amplified Probe: NEGATIVE (12/27/22) Creatinine-Blood: 0.7 mg/dL (09/23/22) Down Syndrome Age Risk FTS: Age Risk: (12/16/22) Down Syndrome Scrn Risk FTS: Screening Risk: (12/16/22) Glucose 50 Gm, +60 Minutes: 90 mg/dL (04/18/23) Hct:??33.4 %??Low (05/23/23) Hemoglobinopathy Interpretation: Normal hemoglobins. (11/27/22) Hepatitis B Surface Antigen: NEGATIVE (11/27/22) Hepatitis C Ab: Non Reactive (05/23/23) Hgb:??10.9 g/dL??Low (05/23/23) HIV 4th Generation Ab-Ag Result: NEGATIVE (11/27/22) RPR Titer Result: NOT INDICATED (04/18/23) Rubella IgG Ab: POSITIVE (11/27/22) Strep Gp B MADINA: Positive Abnormal (05/30/23) Syphilis Screen by DMITRY: NEGATIVE (04/18/23) Trisomy 18 Scrn Risk FTS: Screening Risk: (12/16/22) Urine Culture: Urine Culture (04/25/23) Problem List Active Active Problem List Abnormal laboratory test: (Medical) Anemia in : (Medical) BMI 40.0-44.9, adult: (Medical) Chronic low back pain: (Medical) Environmental and seasonal allergies: (Medical) FHx: genetic disorder: (Medical) GBS carrier: (Medical) Genital HSV: (Medical) H/O ??SARAHY: (Medical) H/O Abnormal Pap smear of cervix: (Medical) H/O Constipation: (Medical) H/O Kidney stones: (Medical) H/O Left lower quadrant abdominal pain: (Medical) H/O Migraine: (Medical) H/O Varicella as a child: (Medical) Andra thyroiditis: (Medical) Itching of both hands: (Medical) Low grade squamous intraepithelial lesion (LGSIL) on cervical Pap smear: (Medical) Polyhydramnios: (Medical) : (Obstetric) (09/21/22) : (Medical) Request for sterilization: (Medical) Procedure/Surgical History Stent Home Medications Aspirin: See Instructions, 2 tablet By Mouth Daily at bedtime Cetirizine: 10 mg = 1 tablet, By Mouth, Daily, PRN (for allergy symptoms) Ferrous Sulfate: 45 mg = 1 tablet, By Mouth, Daily Levothyroxine: 137 mcg = 1 capsule, By Mouth, Daily Multivitamin, : 1 capsule, By Mouth, Daily Pyridoxine: 25 mg = 1 tablet, By Mouth, 3 times a day, PRN (Nausea & Vomiting) Ursodiol: 300 mg = 1 capsule, By Mouth, 3 times a day ValACYclovir: 500 mg = 1 tablet, By Mouth, Every 12 hours Allergies No Known Medication Allergies Social History Alcohol Use: Never. Electronic Cigarette/Vaping Electronic Cigarette Use: Never. Employment/School Status: Employed. Other: [employer]. Exercise Self assessment: Fair condition. Other: Walking. Home/Environment Living situation: Home/Independent. Lives with: Children. Nutrition/Health Diet: Regular. Sexual Sexually involved in last 6 months: Yes. Gender identity: Identifies as female. Self described orientation: Straight or heterosexual. Preferred pronoun: She/her. Substance Abuse Use: Never. Tobacco Use: Never (less than 100 in lifetime). Family History Mother: Diabetes mellitus; Heart attack Plan OB Plan Circumcision Plan: None (06/21/23) Infant Feeding Plan: Formula (06/21/23) Labor Coping Mechanisms: Epidural (06/21/23) Patient Requests: Its a Girl (06/21/23) * Matt Saldivar DO: PERFORM Event Display: History and Physical Hospital Authored Date: Attending Attestation Date of Service:?? 06/21/2023 I have seen and evaluated the patient and I agree??with the resident??assessment and management plan??as documented below.?? - - - - - - - - - - - - - - - - - - - - - - - - - - - - - Matt Saldivar D.O. Hospital Progress note * Pilar Mojica RN: PERFORM, SIGN, VERIFY Event Display: Progress Note Hospital Authored Date: Patient: HERLINDA SUAREZ Age: 33 years Sex: Female : 1990 Associated Diagnoses: None Author: Pilar Mojica RN Findings pt. condition stable , bonding and breast feeding infant well , denies complaints. * Jessika Durand RN: PERFORM, SIGN, VERIFY Event Display: Progress Note Hospital Authored Date: Patient: HERLINDA SUAREZ Age: 33 years Sex: Female : 1990 Associated Diagnoses: None Author: Jessika Durand RN Findings Narrative/Incidental Patient is alert and oriented X4, able to follow commands. Patient medicated as ordered with PRN Tylenol and Motrin. Patient OOB independently. Fundus is firm, midline and bleeding is mild; patient denies passing clots at this time. Patient is voiding and passing gas appropriately. Patient is formula feeding; feeding sheet assessed. Safety checks completed. Mom and baby bonding well. . * Rasheeda Hogue MD: PERFORM Event Display: Progress Note Hospital Authored Date: Patient: ??HERLINDA SUAREZ ? Age:??33 Years?Sex:??Female?:??1990?? Subjective In to see patient for?rounds. Patient is ambulating??around room??comfortably.??Patient is feeling well and resting comfortably. States her pain is well controlled with acetaminophen andibuprofen. Her lochia is like a light period. She is ambulating, voiding spontaneously, passing flat us/stool,??and tolerating regular diet. Breast and bottlefeeding. Bonding with baby appropriately. Mood??is stable.??Denies fever, chills, headache, visual changes, chest pain, shortness of breath, abdominal pain, RUQ pain,??leg swelling, calf tenderness, nausea, or vomiting. Discussed control; patient would like a tubal after her 6 week visit to heal adequately. She would like POPs in the interval. Review of Systems Constitutional:??Denies fever or chills. HEENT:??Denies COATS, blurry vision, changes in vision. Breast: Engorged, tender breasts and nipples, WNL, milk currently not in. Cardiovascular: Denies??chest pain or palpitations. Respiratory:??Denies cough, shortness of breath. Gastrointestinal: Denies nausea or vomiting. No abdominal pain. Some cramping which is more significant with . BEHAVIORAL HEALTH DIRECTOR:??Denies vaginal pain or excessive bleeding. Perineum is appropriately tender. Extremities: Denies LE swelling or calf pain. Physical Exam Vitals & Measurements T:??97.8?F?? HR:??87??(Peripheral)?? RR:??19?? BP:??112/56?? SpO2:??98%?? HT:??155??cm?? WT:??111??kg?? BMI:??46.2?? Constitutional:??No acute distress, resting comfortably. Respiratory:??Normal work of breathing. Lungs clear to auscultation bilaterally. Cardiovascular:??Regular rate and rhythm, no murmurs.? Abdomen/GI:??Soft, non-distended, no guarding, no rebound tenderness.??Fundus firm below umbilicus with mild tenderness. Gynecologic:??Minimal lochia. No swelling or hematoma. Extremities:??No calf tenderness or edema. Skin:??No rash or jaundice. Neurological/Psychiatric:??Mood and affect congruent and stable. Assessment/Plan Assessment:??Herlinda??Mathieu is a 33 yo now P4 day 1 from an IOL for suspected cholestasis. She is meeting appropriate milestones. She would like POPs for PPBC control. ?? Plan to continue routine care and anticipate discharge on PPD2. ?? state (Z39.2):? -Expected discharge to home on PPD2 ?? -Continue routine care, meeting milestones ?? -Diet: Regular ?? -Pain control: Ibuprofen & Tylenol ?? -Encourage ambulation ?? -Feeding plan: alternatively breast and bottlefeeding ?? -PPBC: POPs, interval tubal. ?? -Follow-up: in 6 wks for visit? Andra thyroiditis (E06.3):? - Follows with endocrinology - Continue Levothyroxine 137 mcg daily - continue follow up with PCP ?? Anemia in (O99.019):? - Hgb 10.7 on admission - discussed continuing to take iron supplementation - follow up with PCP ?? 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 Request for ster[facility] (Z30.2):? [facility]??[facility]ilization consents signed 05/30/23 - would like interval tubal - POPs in the interim ?? Discharge Planning:? OB Summary : 4 Parity: 3 . Baby A - Weight: 3.663 kg Baby A - Date, Time of : 06/22/23 17:09:00 Baby A - Gender: Female Baby A - Complications: None EGA at Documented Date, Time: 39W 1D Weight at Delivery Baby A - Delivery Type: Vaginal Delivery Complications: None OB History History?(3,0,0,3)? # 1 ?Baby 1 ?Outcome Date:??08/09/2007?Outcome or Result:??Vaginal ?Gest Age:??Fullterm ? Outcome:??Live ? Sex:??Male?Wt:?2920 g ?Hospital:??[facility] ?? # 2 ?Baby 1 ?Outcome Date:??02/18/2014?Outcome or Result:??Vaginal ?Gest Age:??Fullterm ? Outcome:??Live ? Sex:??Female?Wt:?3799 g ?Hospital:??[facility] ?? # 3 ?Baby 1 ?Outcome Date:??09/16/2016?Outcome or Result:??Vaginal ?Gest Age:??Fullterm ? Outcome:??Live ? Sex:??Female?Wt:?3714 g ?Hospital:??[facility] Active Problem List Active Problem List Anemia in : (Medical) BMI 40.0-44.9, adult: (Medical) Chronic low back pain: (Medical) Environmental and seasonal allergies: (Medical) FHx: genetic disorder: (Medical) GBS carrier: (Medical) Genital HSV: (Medical) H/O ??SARAHY: (Medical) Andra thyroiditis: (Medical) Itching of both hands: (Medical) Low grade squamous intraepithelial lesion (LGSIL) on cervical Pap smear: (Medical) Polyhydramnios: (Medical) : (Obstetric) (09/21/22) Request for sterilization: (Medical) Home Medications Aspirin: See Instructions, 2 tablet By Mouth Daily at bedtime Cetirizine: 10 mg = 1 tablet, By Mouth, Daily, PRN (for allergy symptoms) Ferrous Sulfate: 45 mg = 1 tablet, By Mouth, Daily Levothyroxine: 137 mcg = 1 capsule, By Mouth, Daily Multivitamin, : 1 capsule, By Mouth, Daily Pyridoxine: 25 mg = 1 tablet, By Mouth, 3 times a day, PRN (Nausea & Vomiting) Ursodiol: 300 mg = 1 capsule, By Mouth, 3 times a day ValACYclovir: 500 mg = 1 tablet, By Mouth, Every 12 hours Medications Medications (8) Active SCHEDULED: (3) Ferrous Sulfate 325 mg EC Tablet (ferrous sulfate 325 mg oral tablet) ??325 mg, By Mouth, Daily Levothyroxine 137 mcg Tablet (levothyroxine 0.137 mg oral tablet) ??137 mcg, By Mouth, Daily Multivitamin Tablet ( Multivitamin Tablet) ??1 tablet, By Mouth, Daily CONTINUOUS: (0) PRN: (5) Acetaminophen 325 mg Tablet (Acetaminophen Tablet) ??650 mg, By Mouth, Every 4 hours Calcium Carbonate 500 mg (Calcium 200 mg) Chewable Tablet (Tums 500 mg Tablet) ??1,000 mg 2 tablet,Chew, 3 times a day Docusate Sodium 100 mg Capsule (Docusate Sodium Capsule) ??100 mg 1 capsule, By Mouth, 2 times a day Ibuprofen 800 mg Tablet (Ibuprofen Tablet) ??800 mg, By Mouth, Every 8 hours Ondansetron 2mg/mL Inj (2mL Vial) (Ondansetron Inj) ??4 mg, IV Push, Every 8 hours Note * Yunior CHRISTIE, Pilar Abbott: PERFORM Event Display: Discharge/Transfer Note Hospital Authored Date: [id number] Nursing Discharge Note Entered On: 06/24/2023 11:17 EDT Performed On: 06/24/2023 11:16 EDT by Pilar Mojica RN Nursing Discharge Note 2 Discharge Time : 06/24/2023 11:05 EDT Discharge Level of Care at Discharge : Home/Care Home/Foster Care Patient Left Unit Via : Ambulatory Patient Accompanied Off Unit with : Significant other DC Instructions Provided & Signed by Pt : Yes Patient Understands D/C Instructions : Yes Verbalized Understanding of D/C Plan By : Patient Patient Instructions Discharge Signed : Yes Did Pt have Specialty Bed or Wound Vac : No Yunior CHRISTIE, Pilar Abbott - 06/24/2023 11:16 EDT * Rasheeda Hogue MD: PERFORM Event Display: Discharge/Transfer Note Hospital Authored Date: [id number] Patient: ??HERLINDA SUAREZ ? Age:??33 Years?Sex:??Female?:??1990?? Admit Date Admission Date: 06/21/2023 Discharge Date 06/24/2023 OB Reason for Admission OB Reason for Admission Reason for admission: Induction of labor Reason for Induction: Cholestasis [facility] Hospital Course Herlinda??Mathieu is a 33 yo now P3 that was admitted at 39+0 weeks for IOL for suspected cholestasis. She was induced with miso/pitocin/AROM. She had an uncomplicated of female on intact perineum 06/21. In the period, she met appropriate milestones- she was tolerating PO, ambulating well, having minimal lochia, breast and bottlefeeding well, and bonding with her baby appropriately. She requested progesterone-only contraceptive pills for her control. Shewas appropriate for discharge on day 2. Objective/Physical Exam on Day of Discharge Vitals & Measurements T:??98.4?F?? HR:??67??(Peripheral)?? RR:??18?? BP:??101/59?? SpO2:??98%?? HT:??155??cm?? WT:??111??kg?? BMI:??46.2?? Constitutional:??No acute distress, resting comfortably. Respiratory:??Normal work of breathing. Breathing comfortably on room air. Cardiovascular:??No signs of fluid overload. Abdomen/GI:??Soft, non-distended, no guarding, no rebound tenderness.??Fundus firm below umbilicus with mild tenderness. Gynecologic:??Minimal lochia. No swelling or hematoma. Extremities:??No calf tenderness or edema. Skin:??No rash or jaundice. Neurological/Psychiatric:??Mood and affect congruent and stable. Assessment/Plan/Discharge Diagnosis Assessment:?? Herlinda??Mathieu is a 33 yo now P4 day 2 from an IOL for suspected cholestasis. She is meeting appropriate milestones. She would like POPs for PPBC control. ?? Expect discharge today on PPD2. ?? state (Z39.2):??-Expected discharge to home today on PPD2 ?? -Meeting milestones ?? -Diet: Regular ?? -Pain control: Ibuprofen & Tylenol ?? -Encourage ambulation ?? -Feeding plan: alternatively breast and bottlefeeding ?? -PPBC: POPs sent to pharmacy, interval tubal. ?? -Follow-up: in 6 wks for visit? Andra thyroiditis (E06.3):? - Follows with endocrinology - Continue Levothyroxine 137 mcg daily - continue follow up with PCP ?? Anemia in (O99.019):? - Hgb 10.7 on admission - discussed continuing to take iron supplementation in the period - follow up with PCP ?? 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 Request for sterilization (Z30.2):? -??[facility]??and[facility]??sterilization consents signed 05/30/23 - would like interval tubal; plan for pre-operative visit along with 6 week visit - POPs in the interim ?? 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 - Pap smear LSIL/HPV positive 08/2022 - ( ) Plan for colposcopy ?? Discharge Planning:? Future Appointments Friday 9:15 AM EDT ?? Where: [address] [facility] [address] [place] [address]- Status: Pending Friday 2:00 PM EDT ?? With: Shefali Vera Where: [facility] [address] [place] [address]- Status: Pending Delivery Summary Delivery Summary Maternal Information ??Labor Information ?Baby A ?Labor Onset Methods: ??Induced ?Induction Methods: ??Amniotomy, Misoprostol, Pitocin ??Delivery Information ?Gestational Age at Delivery: ??39W 1D ?Anesthesia OB: ??Epidural ??06/22/23 18:39:37, Epidural ??06/22/23 09:09:54 ?Obstetrical Laceration: ??Perineum intact ?Delivery Complications: ??None ?Blood Loss(ml): ??250 mL ? Baby A ??Delivery Information ?Delivery Type: ??Vaginal ?Date, Time of : ??06/22/23 17:09:00 ? Position: ??Semi-Machado ?Foot of bed removed: ??No ?Delayed Cord Clamping: ??Yes ?Placenta Delivery Date/Time: ??06/22/23 17:14:00 ?Placenta Delivery Method: ??Assisted ?Placenta Appearance: ??Normal ?Placenta to Pathology: ??No ??Care Team ?Attending Provider: ??Denice Bailey MD ?Delivery Physician: ??Courtney Welch MD ?equipment or machinery cleaner #1: ??Chantale Guerrero RN ?equipment or machinery cleaner #2: ??Jessika Chan RN ?Oil Drilling Engineer: ??Jorge Li DO ?Anesthesiology Attending: ??Christiano RICH, Yamil ?Military Analyst: ??Trudi Ross MD ??Labor Information ?ROM Date, Time: ??04/21/24 10:29:00 ?ROM to Delivery Total Time: ??400 min ?3rd Stage, Length of Labor: ??5 min ? monitoring: ??External monitor ?? Information ? Outcome: ??Live ? Weight: ??3.663 kg ? Score 1 minute: ??8 ? Score 5 minute: ??9 ? Score 10 minute: ??9 ?Transferred To: ?? Care area with Family ?Umbilical Cord Description: ??3 vessel cord ? Complications: ??None ?Gender: ??Female ? Procedures Performed Vaginal delivery ? Discharge Medications ???Aspirin (aspirin 81 mg oral delayed release tablet)???Cetirizine (ZyrTEC 10 mg oral tablet)???Ferrous Sulfate (Slow Fe (as elemental iron) 45 mg oral tablet, extended release)???Levothyroxine (levothyroxine 137 mcg (0.137 mg) oral capsule)???Multivitamin, ( Multivitamins with Vitamin B Complex, Vitamin C, Minerals and L-Methylfolate oral capsule)???Norethindrone (norethindrone0.35 mg oral tablet)???Pyridoxine (pyridoxine 25 mg oral tablet)???Ursodiol (ursodiol 300 mg oral capsule)???ValACYclovir (Valtrex 500 mg oral tablet) Immunizations during Hospitalization Vaccine Date Status tetanus/diphtheria/pertussis, acel(Tdap) 04/18/2023 Given influenza virus vaccine, inactivated 12/27/2022 Given influenza virus vaccine, inactivated 03/30/2019 Given influenza virus vaccine, inactivated 04/05/2015 Given tetanus/diphtheria/pertussis, acel(Tdap) 07/08/2014 Given Contraception Progesterone only contraceptive pills Interval tubal ligation ?? Feeding Method [place] Feeding Method: Formula (06/22/23 17:16:00) Patient Education Titles WebMD Ignite Patient Education - OB PP [facility]- Discharge Instructions?? Patient Instructions Please call the office with any concerns including:?? Heavy vaginal bleeding?? Fever of 100.4 or greater Foul-smelling vaginal discharge Difficulty or burning with urination Nausea and vomiting with inability to tolerate food Pain not controlled by the medications listed below Shortness of breath or chest pain. Swelling of the extremities. ?? General Instructions: - Avoid lifting anything 15 lbs or greater until cleared by doctor. - Stairs are OK but avoid multiple trips/ skipping steps and go slowly. - Walk as often as you are able. - Do not put anything in the vagina. No intercourse, tampons, or douching - For pain, you can use isur-jhn-evfzlwc medicines:??Tylenol (acetaminophen, up to 1000mg every 6 hours) and ibuprofen (up to 600mg every 6 hours) - Continue using stool softeners as needed??(examples: colace/docusate, senna, miralax) - Shower as usual. Avoid tubs / soaking / pools. ?? Thank you for allowing us to be part of your care team. * Sri Osorio CNM: PERFORM Event Display: Discharge/Transfer Note Hospital Authored Date: In to see patient prior to discharge All care instructions and precautions reviewed Plan routine care with follow up for: - Anemia - Andra thyroiditis - Cervical dysplasia - Request for sterilization: plan POPs as bridge method to interval procedure * Yunior CHRISTIE, Pilar Abbott: PERFORM Event Display: Patient Education/Instruction Authored Date: Inpatient Adult Discharge Instructions. [address] [address] Name: HERLINDA SUAREZ : 1990?? Visit: 06/21/2023 20:24?? Current Date: 06/24/2023 08:51 ?? Account: [id number]?? Inpatient Adult Discharge Instructions We would like to thank you for allowing us to assist you with your healthcare needs. The following includes patient education materials and information regarding your injury/illness. Our entire staffstrives to provide an excellent experience for our patients and their families. PLEASE ENSURE YOU FOLLOW-UP PER THE INSTRUCTIONS BELOW! ?? YOUR OPINION IS IMPORTANT TO US! Please complete the survey you may receive by mail or email. Your feedback will be used to make improvements to the healthcare experiences of our patients and their families. Surveys are administered by [employer] ?? If further treatment with your primary care physician or another doctor is recommended, it is important for you to keep the appointment. Call your primary care physician or return to the Emergency Department immediately if your condition worsens, fails to improve, or new symptoms develop. If you need to find a doctor, you can call [facility] Link for a referral at [phone] or toll free at [phone]) or log in to [email or web address].. ?? [facility], in keeping with [facility] guidance, no longer requires face masks for staff, patientsor visitors in most situations. Similiar to time spent indoors at other locations, there is the chance that you were exposed to repiratory viruses during your time with us (such as flu or COVID-19). If you develop symptoms concerning for a viral respiratory infection, please seek testing (and treatment if indicated) from your medical provider or home test kit. ?? You can view and manage your care through the patient portal or by using a health care mayela of your choosing. [employer] is a website that allows you to securely view your medical information including your hospital discharge summary, office visit summaries, medications and follow-up visits. You can also request appointments, renew medications, and request access to your medical information using a health care mayela of your choosing, or just ask a question. You can enroll at [email or web address] or register during your next office visit. You have been discharged from [facility], Patient Care Unit: [facility]??. If you have any questions regarding these instructions, including results of studies pending, afteryou leave, please call us and we will be happy to assist you 23/09. [facility] Your Care Team Attending Physician Jeannette Lopez MD?? Consulting Providers Jeannette Lopez MD?? 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 You may have had other tests and procedures not included in this list. Please discuss all test results with your provider. CBC HOLD GEL TUBE Type and Screen No tests performed during this visit.?? Primary Care Provider Brad RICH, Huber Forrester? Advance Directive Health Care Proxy on File Yes - Health Care Proxy Discharge Vitals Temperature: 98.4 DegF Height: 155 cm Pulse Rate: 67 bpm Weight: 111 kg Respiratory Rate: 18 br/min Body Mass Index:??46.2 kg/m2??Critical Systolic Blood Pressure: 101 mm Hg Body surface area: 2.19 Diastolic Blood Pressure: 59 mm Hg ?? Oxygen Saturation: 98 % ?? Studies Pending All studies ordered during this hospital stay have been completed unless listed below. Please discuss all pending results with your provider listed above in these instructions. ?? No incomplete studies found?? What to do next Instructions From Your Doctor Please call the office with any concerns including:?? Heavy vaginal bleeding?? Fever of 100.4 or greater Foul-smelling vaginal discharge Difficulty or burning with urination Nausea and vomiting with inability to tolerate food Pain not controlled by the medications listed below Shortness of breath or chest pain. Swelling of the extremities. ?? General Instructions: - Avoid lifting anything 15 lbs or greater until cleared by doctor. - Stairs are OK but avoid multiple trips/ skipping steps and go slowly. - Walk as often as you are able. - Do not put anything in the vagina. No intercourse, tampons, or douching - For pain, you can use dsvi-qgs-pbrpuyp medicines:??Tylenol (acetaminophen, up to 1000mg every 6 hours) and ibuprofen (up to 600mg every 6 hours) - Continue using stool softeners as needed??(examples: colace/docusate, senna, miralax) - Shower as usual. Avoid tubs / soaking / pools. ?? Thank you for allowing us to be part of your care team. ?? Orders? 06/24/23 7:00:00 EDT?? Scheduled Follow-Up Appointments Friday 9:15 AM EDT ?? Where: [address] [facility] [facility] [address] [place] [address]- Status: Pending Friday 2:00 PM EDT ?? With: Shefali Vera Where: [facility] [address] [place] [address]- Status: Pending Discharge Medications HERLINDA SUAREZ :1990 Visit Date:06/21/2023 Medications: Please continue your medications until treatment is completed or stopped by your provider. Medications not listed below should be discontinued. Discuss any questions related to medications with your provider. What How Much When Why Instructions Next Dose New Norethindrone (norethindrone 0.35 mg oral tablet) 1 tab(s) Oral Daily Pickup at [id number] Unchanged Aspirin (aspirin 81 mg oral delayed release tablet) See instructions Severe obesity (BMI 35.0-39.9) with comorbidity 2 tablet By Mouth Daily at bedtime ?? Unchanged Cetirizine (ZyrTEC 10 mg oral tablet) 1 tab(s) Oral Daily as needed for for allergy symptoms Unchanged Ferrous Sulfate (Slow Fe (as elemental iron) 45 mg oral tablet, extended release) 1 tab(s) Oral Daily Anemia Unchanged Levothyroxine (levothyroxine 137 mcg (0.137 mg) oral capsule) 1 capsule Oral Daily 06/25/23 Unchanged Multivitamin, ( Multivitamins with Vitamin B Complex, Vitamin C, Minerals and L-Methylfolate oral capsule) 1 capsule Oral Daily Duration: 90 Days Unchanged Pyridoxine (pyridoxine 25 mg oral tablet) 1 tab(s) Oral 3 times a day as needed for Nausea & Vomiting Unchanged Ursodiol (ursodiol 300 mg oral capsule) 1 capsule Oral 3 times a day Itching Duration: 90 doses/times Unchanged ValACYclovir (Valtrex 500 mg oral tablet) 1 tab(s) Oral Every 12 hours Pharmacy Information [facility] #[id number]: [address], [place] [id number] [phone] Prescription Given During Visit Norethindrone (norethindrone 0.35 mg oral tablet) - 1 tablet = 0.35 mg, By Mouth, Daily, # 84 tablet, 0 Refills, [id number], [address] [place] [phone]?? Laboratory Results Below is a partial list of the most recent Laboratory test results done prior to this discharge. You may have had other tests and procedures not included in this list. Please discuss all test resultswith your provider. CBC (06/21/2023) ???WBC - 8.3 k/mm3???RBC - 4.04 m/mm3???Hgb - 10.7 Gm/dL???Hct - 32.4 %???MCV - 80.2 femtoliters???MCH - 26.5 pg???MCHC - 33.0 g/dL???Platelet Count - 203 k/mm3???RDW-SD - 42.5 femtoliters???MPV - 10.9 femtoliters???Nucleated RBC (Automated) - 0.0 #/100 WBC'S???Abs. NRBC - 0.0 k/mm3 HOLD GEL TUBE (06/21/2023) ???Hold Gel Top - SPECIMEN DISCARDED AFTER 1 WEEK Type and Screen (06/21/2023) ???Blood Type - O Positive???Antibody Screen - Negative Allergies (NKA means No Known Allergies) No Known Medication Allergies Problems Active Problems??(11) BMI 40.0-44.9, adult?? Chronic low back pain?? Environmental and seasonal allergies?? FHx: genetic disorder?? Genital HSV?? H/O ??SARAHY?? Andra thyroiditis?? Low grade squamous intraepithelial lesion (LGSIL) on cervical Pap smear?? Polyhydramnios? Request for sterilization?? Education Materials Below is the list of Educational Leaflet Providered with your Discharge Instructions. WebMD Ignite Patient Education - OB PP [facility]- Discharge Instructions?? WebMD Ignite Patient Education - OB PP- Engorgement?? Valuables and Belongings I fully understand and agree that [facility] accepts no responsibility for all my personal property including clothing, toilet articles, radios, jewelry, dentures, hearing aids, rings, money, or any other property that is in my possession or is brought to me after admission. I understand certain valuables may be placed in a hospital safe for a short period of time. I understand that the hospital is not liable for loss or damage due to accident, fire, or other natural occurrence while said property is in the safe. I accept full responsibility for any personal property that I keep with me, and will not hold the hospital responsible in case of loss or disappearance. I acknowledge that i have been encouraged to send valuables and belongings home. ?? Review of Valuable and Belonging List: With patient Date for Pt to Sign Valuables/Belongings: 06/21/23 21:08:00 ?? Other Discharge Information ? Pulmonary Rehab Status?? Pulmonary Rehab Discharge Status?? Respiratory Rate: 18 br/min ? Common Emergency Awareness Tips IS IT A STROKE? Act FAST and Check for these signs: FACE Does the face look uneven? ARM Does one arm drift down? SPEECH Does their speech sound strange? TIME Call at any sign of stroke ?? Heart Attack Signs Chest discomfort: Most heart attacks involve discomfort in the center of the chest and lasts more than a few minutes, or goes away and comes back. It can feel like uncomfortable pressure, squeezing, fullness or pain. Discomfort in upper body: Symptoms can include pain or discomfort in one or both arms, back, neck, jaw or stomach. Shortness of breath: With or without discomfort. Other signs: Breaking out in a cold sweat, nausea, or lightheaded. Remember, MINUTES DO MATTER. If you experience any of these heart attack warning signs, call to get immediate medical attention! ?? Smoking can increase your chances of developing chronic health problems and can cause harmful effects to other family members in your house. If you smoke, you are strongly encouraged to quit. Please call [employer] [facility] at [phone] or [phone]) or log in to [email or web address] for referrals to smoking cessation programs. ?? 688 Suicide & Crisis Lifeline is available 23/09 if you or someone you know needs to find a reason to keep living. By calling 038 you'll be connected to a skilled, trained counselor at a crisis center in your area. INPATIENT DISCHARGE INSTRUCTIONS SIGNATURE PAGE HERLINDA SUAREZ Location:[facility] Registration Date and Time:06/21/2023 20:24 EDT Primary Care Physician: Brad RICH, Huber Forrester, Attending Physician: Jessica RICH, Jeannette Shaffer, HERLINDA ARGUETA, have received the above patient education materials/instructions and have verbalized understanding. If ambulance or transport services are being used I further acknowledge being given a choice of service. ?? If you need to contact me, please call me at this number: . Patient/Sanforizing Machine Operator Name: Patient/Sanforizing Machine Operator Signature: Relationship to Patient: Witness Name/Signature: Date: * Neyda Bolivar RN: PERFORM Event Display: Patient Education Leaflets Authored Date: [id number] OB PP [facility]- Discharge Instructions ?? 209 Discharge Care Instructions for the New Mom and Baby Please take a few moments to read through these helpful instructions before you leave the hospital.?? Your nurse will be glad to answer any questions you may have.?? You can also find this and more information throughout the purple Becoming a Family booklet, [facility] New Beginnings Guide and the Consultation Services Guide given to you after the of your baby.?? You may also phone our nurses stations if you have further questions.?? [facility]:?? First Floor ([phone]), Second Floor ([phone]).?? Please call your provider if you have any questions or concerns?? before your next appointment. For ongoing support please ???Like?? us on our Facebook page ???[facility]?? andsign up for our email newsletter at [email or web address].?? News and information will besent to you until your baby???s third birthday. Instructions for the New Mother Activity: For the next 2 weeks at home ??? no heavy lifting, avoid unnecessary stair climbing, and no driving(especially if you are taking medicine that may make you sleepy or feel that you are sleep deprived).?? For the next 4-6 weeks - no tampons, no douches, no sexual intercourse. Use your loren bottle to rinse your perineum until your vaginal flow stops.?? If you have stitches in your bottom, they generally dissolve within 7-10 days.?? Apply Tucks/witch irene pads until your soreness subsides.?? Use your bathroom at home every 3 to 4 hours, rinse, and change your pads. Warm showers feel great on achy muscles, sore backs and sore bottoms. Exercise: Walking is the best form of exercise.?? Wait until your follow up appointment with your provider in4-6 weeks before engaging in more strenuous activity. Diet: Drink plenty of fluids to avoid constipation and to help support your recovery. Eat plenty of iron rich foods such as red meat, iron fortified cereals like Total and Cream of Wheat, raisins, prunes, greens and spinach.?? These will help to build your blood count back up as all women lose some blood after delivery.?? Also add foods rich in Vitamin C such as strawberries, oranges, papayas, kale and nash peppers. Continue to take your vitamins if you are .?? If you are not follow the instructions of your provider.?? If you were prescribed iron supplements such as ferrous sulfate, it is important to continue these until your doctor or bilingual research interviewer tells you to stop. Breast Care for Nursing Mothers: Wear a comfortable fitting, supportive nursing bra.?? An underwire bra is not recommended. Express drops of breast milk and rub over your nipples and areola (brown area) before and after each feeding to protect and heal sensitive skin and then air dry your nipples.?? If you are experiencing any soreness, you may purchase nipple cream such as TenderCare or Lansinoh.?? Use it in the following manner:?? finish your feeding or pumping session, self-express colostrum onto your nipple and air dry, apply the nipple cream to the nipple and areola.?? Use only small amounts for best results. If you are having difficulty getting the baby to latch onto the breast due to swelling of the areola, try applying pressure with your fingers for a couple of minutes above and below your nipple and walk your fingers outward softening the area and pushing the swelling away.?? This technique is knownas reverse pressure softening.?? For demonstrations of this and other techniques such as the [place] Hand Expression technique, please refer to the resources section of the Consultation Services Guide that you received from services. When your milk first comes in, usually within 3 to 5 days after delivery, you may experience engorgement.?? Your breasts may become swollen and very tender.?? Cold compresses work great to help with discomfort and reduce swelling. It will get better in a couple of days.?? Continue to nurse your baby frequently.?? Call [facility]???s Consultation Service at [phone], press 1 to schedule an outpatient appointment or press 3 and a websphere consultant will return your call that day or the next if you call after 3pm. Breast Care for Bottle Feeding Mothers: Engorgement may occur within the first week after delivery.?? Your breasts may become hard and verytender.?? A cool compress of cleaned raw green cabbage leaves applied to the breast and changed as leaves wilt has been proven helpful for many women.?? Ice packs or frozen bags of peas also work nicely to ease the discomfort.?? The soreness will only last a couple of days. Keep your back turned to the water while showering to decrease breast stimulation. Wear a snug fitting bra such as a sports bra. Incision Care Following Tubal or Section: You may shower as directed by your doctor or bilingual research interviewer.?? Pat your incision dry with a clean towel.??You will not need a bandage after the first day. Call your doctor or bilingual research interviewer with any signs of infection such as a hard, hot swollen tender incision, especially if the skin around the incision looks pink or red.?? Yellow drainage with an odor may also be a sign of infection to report. Call your doctor or bilingual research interviewer if the incision begins to separate. If you have steri-strips on the incision, they will likely fall off in the first week.?? If they have not fallen off by 10 days after delivery, you may remove them. Control: Your doctor or bilingual research interviewer will discuss control methods with you when [facility] or at your checkup.?? Be sure to let your provider know if you are . You had a Paragard IUD placed on .?? This control method is effective for 10 years. You had a Liletta placed on .?? This control method is effective for up to 5 years. You had a Nexplanon placed on .?? This control method is effective for up to 3 years. You received a Depo Provera injection on .?? This control method is effective as longas you repeat it every 3 months.?? Schedule your next dose before . You have a prescription for control pills .?? It is important to take a pill everyday at around the same time of day for effective control protection.?? Pain Management: Cramping after is common and increases in strength with each baby you have.?? If you experience painful cramps, and have no allergies to acetaminophen (Tylenol) or ibuprofen (Motrin), you may continue to take these medications as you did in the hospital.?? Ibuprofen is also helpful with back aches following epidurals, perineal pain following a vaginal delivery, and moderate incisional pain after a section or a tubal ligation.?? If you experience gas distention, especially after surgery, you may take an over the counter medication called simethicone.?? Take these chewable tablets 4 times a day as needed and directed on the package.?? Keep moving.?? Walking or rocking in a chair, will help to move the gas along.?? Betty tea made with heated betty linus (instead of water) and a tea bag, stirred to dissolve carbonation (bubbles) is a helpful drink to soothe a gassy stomach. Warning Signs of a Problem to Notify Your Doctor or Ampoule Sealer of: Heavy vaginal bleeding ??? which is soaking a pad every hour with bright red blood. Passing blood clots the size of an egg or larger. An incision that is not healing. A temperature greater than or equal to 100.4 especially if accompanied by any of the following symptoms ??? painful, frequent urination; extreme back or flank pain; lower belly pain with a foul smellto your vaginal flow; a red hard hot area on your breast.?? Severe headache that does not go away after taking acetaminophen or ibuprofen.?? A headache that changes your vision, including seeing spots or blurring. Right sided upper abdominal pain along the rib cage area. Pain in your legs that is warm and tender to the touch. depression signs may include ??? loss of interest in your baby, weepiness, difficulty focusing, weight loss with no appetite, exhaustion, feeling overwhelmed or anxious, feelings of despair, or thoughts of harming yourself or your baby.?? These symptoms are important and should be discussed with your doctor or bilingual research interviewer. depression may develop over a period of time and needs prompt medical attention.?? Do not suffer in silence.?? In both the Becoming a Family booklet and [facility] Guide there is a screening tool used to identify women at risk, called the [place] Scale which you have taken in the office prior to delivery and again during your hospital s roberto.?? Three to four weeks after your delivery, and before your check with your provider, take this test and share your results with your provider.?? Be sure to mention any score of 10 or more.?? Many women, and even some partners, may experience the ???baby blues?? .?? This is a state of feeling overwhelmed and weepy.?? Discomfort from childbirth, hormonal changes, exhaustion, changes to your body and lifestyle are a few of the things that contribute to the highs and lows new parents go through.?? Don???t be afraid to ask your partner or family and friends for some help at home so you can get some rest and a few minutes to yourself.?? The blues will quickly pass. Personal Safety: Every person has the right to feel safe at home and live free from physical or emotional harm.?? Ifyou have suffered mental or physical abuse at home, you are not alone.?? There is help.?? Please call HOTLINE or the Down Program at [phone]. CARE Bathing: Give your baby a sponge bath until the cord falls off in about 1-3 weeks.?? It is not necessary to bathe your baby every day, usually every few days is sufficient. ??Keep the cord area dry.?? Some baby girls will have a small bloody vaginal discharge. No need to worry as this is normal. It is not necessary to use lotions on the baby???s skin.?? Powders and oils are not recommended.?? Babies often get rash on their skin which comes and goes quickly and does not require any special care.?? Diaper rash can be treated with a zinc oxide preparation such as Desitin or Balmex diaper cream. Circumcision Care: Your nurse will teach you how to care for your baby???s circumcision depending on the type of circumcision your doctor or bilingual research interviewer performed.?? Most circumcisions require A&D ointment for about 4-5 days.?? Be generous with the amount of A&D used as this will prevent the diaper from sticking when you go to change it. If a plastibell circumcision was done, the plastic ring around the penis will fall off in a week orso. Diapers: After the 1st??few days, the baby will start wetting more often.?? A breast fed baby will wet about6-8 times a day once mom???s milk comes in ??? usually day 4 or 5.?? This is a good sign that the baby is getting plenty to eat.?? You may notice an orangey-pink stain in the diaper which is normal for the first few days. The baby???s first bowel movements are sticky, black and tarry.?? As the baby starts to feed more often over the next couple of days, the stool will change to a seedy yellowish green color and eventually a loose mustard like stool for a breast fed baby and a more formed yellow stool for a bottle fed baby. your Baby: ??Congratulations on deciding to breastfeed your baby! You are providing your baby with the most nourishing food source on the planet, your breast milk.?? Cues such as rooting, suckling, licking and fussing may be telling you that your baby is ready to eat ??? and it is time to offer your breasts. The first weeks following the are a time for you and your baby to learn.?? The baby may be sleepy the first day after with 8 to 12 attempts ??? including 2 to 4 good feedings.?? Over the next couple of days the baby will become more wakeful, feed 8 to 12 times a day and have more wet and poopy diapers.?? Cluster feeding, especially during the evening/night time, is normal. ?? Listen for swallowing sounds and watch the baby as they become more relaxed at the breast ??? both good signs that the baby is getting a good amount of milk.?? Refrain from smoking or eating edible marijuana while you are . Even though marijuana is legal in the state of [place],??it is harmful for your baby.??It stays in breast milk for along period of time and THC can be found in the baby's urine for up to 3 weeks. Second hand smoke can also increase the risk??of Sudden Syndrome / SIDS. ?? Nursing is wonderful but many moms and babies have some degree of difficulty with at first. Don???t give up!?? There are many resources available to help you overcome these temporary problems. Your market analyst wants to hear from you if you are having difficulties and can offermany helpful suggestions.?? Some offices have consultants on staff. [facility]???s Consultation Service is available 7 days a week, 8am to 3pm at [phone].?? Press 1 to schedule an outpatient appointment.?? Press 3 to leave a message for the training consultant, a websphere consultant will return your call that day or the next if you call after 3pm. Support Groups ??? [facility] offers free gatherings for moms and babies weekly.?? All groups meet at the [facility]???s 2nd??floor, typically in the [facility] Conference Room, Friday???s 1 to 2 pm.?? Brandi Salinas is a worldwide organization with local community support, mother to mother support.?? Information can be found at https://www.lllusa.org Formula Feeding your Baby: Formula fed babies should eat every 3 to 4 hours.?? Look for cues that your baby is ready ??? such as rooting and sucking, licking and fussing.?? At the baby???s stomach is small and may take 10-15ml of formula.?? Over the next few days the baby will become more wakeful and feed more frequently, gradually increasing the amounts of formula taken at a feeding.?? Your market analyst will provideinstructions on how to increase the amount.?? Refer to packaging for formula preparation directions, depending on the type of formula you purchase ??? powder, concentrate or ready to feed. Infant Safety: ALWAYS REMEMBER - BACK TO SLEEP! Babies sleep safest on their backs.?? Every sleep.?? Every time.?? Every nap. Babies need a firm sleep surface with a tight fitting bottom sheet.?? NO loose bedding.?? NO pillows.?? NO bumper pads or rolls.?? NO heavy or fluffy blankets. NO stuffed toys. It is not safe for your baby to sleep in your bed, in a chair, or on a sofa.?? Your baby should notsleep with you or anyone else. Car Seat: Always place your baby in a rear facing car seat in the backseat of the car. Car seat inserts that come with the car seat can be used as they are crash tested with the seat.?? You should not buy additional inserts.?? Dress the baby in a weather appropriate outfit.?? Avoid bulky clothing such as snowsuits or jackets as the baby may squirm in the seat, loosening the shoulder straps and come out of the top of the harness if you need to brake hard or are in an accident.?? Once the baby issecured in the seat you can cover your little one with a blanket if needed.?? If your baby was bornprematurely, follow the directions given to you.?? If you have not already done so, check to make sure your car seat is installed correctly. Check with your local Fire and Police Department to see if they offer car seat inspections at a location close to you. Babies Can Move: ?? Never leave your baby unattended on any surface, raised or flat, or while bathing.?? They can squirm, fall or hurt themselves.?? Always fasten the safety belt when using an infantseat or swing ??? as they may lean forward and fall. Good Handwashing is the number one way you can protect the baby from too?? many germs and prevent infection.?? When family and friends visit ask that they wash their hands before holding your baby.??Also avoid crowds the first month of your baby???s life to protect from colds and flus. Shaking a baby out of frustration can cause severe and lasting damage, even to a baby.?? If you feel you are becoming angry or overwhelmed, place the baby in a safe place and walk away.?? Call a friend or family member.?? If they are not able to offer immediate help call the Parental Stress Hotline at?? , an anonymous 23/09 source of help. Warning Signs to notify your market analyst of: Most babies develop a small amount of jaundice (a yellowish skin color) in the face and upper chest, by about 3 days of age.?? If the yellow color extends below the baby???s belly or if the baby is very sleepy and not feeding well, call your market analyst. A rectal temperature of 100.4F as it could be a sign of infection. Projectile vomiting that continues with each feeding could indicate reflux or a problem with the formula. Extreme sleepiness or very fussy. Cold symptoms with nasal stuffiness, especially if the baby is having difficulty feeding. Constipation with hard stools. Blue or dusky color, call [phone]. If Your Baby Needs to Remain in the Hospital: Please leave your baby???s ID bracelets on if your baby needs to remain in the hospital after you are discharged home. The phone number to NICU is [phone]. The phone number to [facility] is [phone]. The phone number to [facility] is [phone]. moms should pump every 2-3 hours or 8-12 times in 24 hours.?? If unable to place the baby to breast, if you are having difficulty getting the baby to latch on, or if the baby remains inthe hospital after you are discharged ??? bring the pumped milk to the hospital, labeled with name,date and time.?? Carry it in a small cooler or diaper bag with an ice pack and bring it the next time you visit your baby.?? Consultation Services is available if you need to rent or purchase a pump or products.?? Call and leave a message at [phone] ??? press 3 and a websphere consultant will return your call that day or the next if you call after 3pm. ? * Neyda Bolivar RN: PERFORM Event Display: Patient Education Leaflets Authored Date: [id number] OB PP- Engorgement ?? 216 Engorgement Steps to take if your breasts are uncomfortably full: ??? Be sure the baby is nursing as often as possible with a deep latch. When you are engorged sometimes it is necessary to soften breasts by hand expressing or pumping briefly first in order to achieve a deep latch). ??? If after a feeding breasts are still uncomfortably full, try hand expressing your milk in the shower, or pumping just until comfortable. To reduce inflammation: ??? Apply ice packs to breasts for 20 minutes after a feeding. ??? Alternatively you can apply coldcabbage leaves inside your bra for about 20 minutes up to 4 times a day. ??? Take anti-inflammatorymedications as instructed by your bilingual research interviewer. If these treatments don???t help call for a consult [phone]. If these symptoms are accompanied by a fever and flu-like symptoms, or you notice any hot, swollen and/or red areas on the breasts call [facility] at [phone] for further instructions. ? Patient Care team information Care Team Personnel Name: Brad RICH, Huber Forrester Position: [facility] Resident Member Role: PCP Address: Address: [address] [place] [address] [place] [address]- Care Team Related Persons Name: DUANE MARIE Address: [id number] Address: home [address] [address] Name: NEEMA MCGHEE Address: home [address] [place] [address]
--- OUTSIDE RECORDS SUMMARY | 2023-09-25 13:44 | XMS_ITS | Continuity of Care Document ---
Author Organization [facility] Address [address] [place] [address]- Care Team Providers Care Visual Communications Instructor Name Role Phone Huber Salinas MD [facility] Primary Care Physician [place] [facility] [place]23 [facility] [address] [place] [address] Allergies, Adverse Reactions, Alerts No Known Medication [...] Replace Required Details, Route to Pharmacy Electronically, [facility] #[id number], Partial fill upon pa... Start Date: 12/27/22 Status: Ordered levothyroxine 137 mcg (0.137 mg) oral capsule 1 capsule = 137 mcg, By Mouth, Daily, # 30 capsule, 11 Refills, Maintenance, 02/21/23 15:47:00 EST,Capsule, [facility] #[id number], Partial fill upon patient request if the prescription is for a schedule II opioid drug., 156.6, cm, 02/21/23 10:1... Start Date: 02/21/23 Status: Ordered Multivitamins with Vitamin B Complex, Vitamin C, Minerals and L- Methylfolate oral capsule 1 capsule, By Mouth, Daily, # 90 capsule, 5 Refills, Maintenance, 09/11/22 17:02:00 EDT, Capsule, [facility] #[id number], Partial fill upon patient request if the prescription is for a schedule II opioid drug., 1 capsule By Mouth Daily,x90 days,... Start Date: 09/11/22 Stop Date: 03/04/24 Status: Ordered pyridoxine 25 mg oral tablet 1 tablet = 25 mg, By Mouth, 3 times a day, PRN Nausea & Vomiting, # 30 tablet, 0 Refills, Maintenance, 11/27/22 16:46:00 EDT, Tablet, [facility] #[id number], Partial fill upon patient request if the prescription is for a schedule II opioid drug.,... Start Date: 11/27/22 Status: Ordered Slow Fe (as elemental iron) 45 mg oral tablet, extended release 1 tablet = 45 mg, By Mouth, Daily, # 30 tablet, 2 Refills, Maintenance, 05/16/23 9:05:00 EDT, [facility] #[id number], Partial fill upon patient request if the prescription is for a schedule II opioid drug., 155, cm, 05/16/23 8:54:00 EDT, Height,... Start Date: 05/16/23 Status: Ordered ursodiol 300 mg oral capsule 300 mg, 1, capsule, By Mouth, 3 times a day, # 90 capsule, Refills 3, Tot. Refills 3, Maintenance, 04/15/23 10:22:00 EST, Route to Pharmacy Electronically, [facility] #[id number], Partial fill upon patient request if the prescription is for a sujit... Start Date: 04/15/23 Status: Ordered Valtrex 500 mg oral tablet 500 mg, 1, tablet, By Mouth, Every 12 hours, # 60 tablet, Refills 0, Tot. Refills 0, Maintenance, 06/13/23 10:49:00 EDT, Route to Pharmacy Electronically, [facility] #[id number], Partial fill upon patient request if the prescription is for a sche... Start Date: 06/13/23 Status: Ordered ZyrTEC 10 mg oral tablet 1 tablet = 10 mg, By Mouth, Daily, PRN for allergy symptoms, # 30 tablet, 4 Refills, Maintenance, 09/06/22 11:37:00 EDT, Tablet, [facility] #[id number], Partial fill upon patient request if the prescription is for a schedule II opioid drug., 156.... 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 Confirmed Active Itching of both hands Confirmed Active Low grade squamous intraepithelial lesion (LGSIL) on cervical Pap smear Confirmed Active H/O SARAHY Confirmed Active Polyhydramnios Confirmed Active Request for sterilization Confirmed Active Social History Social History Type Response Smoking Status Never (less than 100 in lifetime) entered on: 09/06/22 Sex Female Patient Care team information Care Team Personnel Name: Brad RICH, Huber Forrester Position: [facility] Resident Member Role: PCP Address: Address: [address] [facility] [place], [place] [address] Care Team Related Persons Name: NEEMA MCGHEE Address: home [address] [place] [address] Name: HERLINDA SUAREZ GIRL Address: [address] Address: [address] [address]
--- OUTSIDE RECORDS SUMMARY | 2023-09-25 13:44 | XMS_ITS | Continuity of Care Document ---
Author Organization [facility] Address [address] [place] [address]- Care Team Providers Care Mechatronics Engineer Name Role Phone Kandi Schroeder DO Primary Care Physician [phone] Encounter [facility] [place] Date(s): 06/23/23 - 09/14/[address] [address]- Attending Physician: Not on Staff, Attending MD [...] Replace Required Details, Route to Pharmacy Electronically, [facility] #[id number], Partial fill upon pa... Start Date: 12/27/22 Status: Ordered levothyroxine 137 mcg (0.137 mg) oral capsule 1 capsule = 137 mcg, By Mouth, Daily, # 30 capsule, 11 Refills, Maintenance, 02/21/23 15:47:00 EST,Capsule, [facility] #[id number], Partial fill upon patient request if the prescription is for a schedule II opioid drug., 156.6, cm, 02/21/23 10:1... Start Date: 02/21/23 Status: Ordered norethindrone 0.35 mg oral tablet 1 tablet = 0.35 mg, By Mouth, Daily, # 84 tablet, 0 Refills, Maintenance, 06/24/23 6:52:00 EDT, Tablet, [facility] #[id number], Partial fill upon patient request if the prescription is for a schedule II opioid drug., 155, cm, 06/24/23 0:00:00 EDT... Start Date: 06/24/23 Status: Ordered NuvaRing 0.015 mg-0.120 mg vaginal ring 1 each, Vaginally, Every 28 days, # 3 each, 0 Refills, Maintenance, 08/18/23 8:52:00 EDT, [facility][id number], Partial fill upon patient request if the prescription is for a schedule II opioid drug., 1 each Vaginally Every 28 days, 155, cm, 06... Start Date: 08/18/23 Status: Ordered Multivitamins with Vitamin B Complex, Vitamin C, Minerals and L- Methylfolate oral capsule 1 capsule, By Mouth, Daily, # 90 capsule, 5 Refills, Maintenance, 09/11/22 17:02:00 EDT, Capsule, [facility] #[id number], Partial fill upon patient request if the prescription is for a schedule II opioid drug., 1 capsule By Mouth Daily,x90 days,... Start Date: 09/11/22 Stop Date: 03/04/24 Status: Ordered pyridoxine 25 mg oral tablet 1 tablet = 25 mg, By Mouth, 3 times a day, PRN Nausea & Vomiting, # 30 tablet, 0 Refills, Maintenance, 11/27/22 16:46:00 EDT, Tablet, [facility] #[id number], Partial fill upon patient request if the prescription is for a schedule II opioid drug.,... Start Date: 11/27/22 Status: Ordered Slow Fe (as elemental iron) 45 mg oral tablet, extended release 1 tablet = 45 mg, By Mouth, Daily, # 30 tablet, 2 Refills, Maintenance, 05/16/23 9:05:00 EDT, [facility] #[id number], Partial fill upon patient request if the prescription is for a schedule II opioid drug., 155, cm, 05/16/23 8:54:00 EDT, Height,... Start Date: 05/16/23 Status: Ordered ursodiol 300 mg oral capsule 300 mg, 1, capsule, By Mouth, 3 times a day, # 90 capsule, Refills 3, Tot. Refills 3, Maintenance, 04/15/23 10:22:00 EST, Route to Pharmacy Electronically, [facility] #[id number], Partial fill upon patient request if the prescription is for a sujit... Start Date: 04/15/23 Status: Ordered Valtrex 500 mg oral tablet 500 mg, 1, tablet, By Mouth, Every 12 hours, # 60 tablet, Refills 0, Tot. Refills 0, Maintenance, 06/13/23 10:49:00 EDT, Route to Pharmacy Electronically, [facility] #[id number], Partial fill upon patient request if the prescription is for a sche... Start Date: 06/13/23 Status: Ordered ZyrTEC 10 mg oral tablet 1 tablet = 10 mg, By Mouth, Daily, PRN for allergy symptoms, # 30 tablet, 4 Refills, Maintenance, 09/06/22 11:37:00 EDT, Tablet, [facility] #[id number], Partial fill upon patient request if the [...] S Resident Member Role: PCP Address: Address: [address] [place] [address]- Care Team Related Persons Name: KANDI MARIE Address: [id number] Address: home [address] [place] [address] [place] Name: NEEMA MCGHEE Address: home [address] [place] [address]
--- OUTSIDE RECORDS SUMMARY | 2023-09-25 13:44 | XMS_ITS | Continuity of Care Document ---
Author Organization [facility] Address [address] [place] [address]- Care Team Providers Care Internet Sales Associate Name Role Phone Brad RICH, Huber Forrester Primary Care Physician [id number] Date(s): 02/02/23 - 06/01/[address] [address]- Attending Physician: Kalpana Alfaro CNM Admitting Physician: Kalpana Alfaro CNM Allergies, Adverse Reactions, Alerts No Known Medication Allergies Immunizations Given and Recorded Vaccine Date Status Refusal Reason tetanus/diphtheria/pertussis, acel(Tdap) 04/18/23 Given tetanus/diphtheria/pertussis, acel(Tdap) 07/08/14 Given influenza virus vaccine, inactivated 12/27/22 Give n influenza virus vaccine, inactivated 03/30/19 Give n influenza virus vaccine, inactivated 04/05/15 Give n Medications acyclovir 400 mg oral tablet 1 tablet = 400 mg, By Mouth, 3 times a day, # 30 tablet, 0 Refills, Maintenance, 05/30/23 8:40:00 EDT, Tablet, [facility] #[id number], Partial fill upon patient request if the prescription is for a schedule II opioid drug., 155, cm, 05/30/23 8:15... Start Date: 05/30/23 Status: Ordered aspirin 81 mg oral delayed release tablet See Instructions, 2 tablet By Mouth Daily at bedtime, # 60 tablet, Refills 8, Tot. Refills 8, Maintenance, 12/27/22 9:43:00 EDT, Instructions Replace Required Details, Route to Pharmacy Electronically, [facility] #[id number], Partial fill upon pa... Start Date: 12/27/22 Status: Ordered ferrous sulfate 325 mg oral enteric coated tablet 325 mg, 1, tablet, By Mouth, Daily, # 90 tablet, Refills 3, Tot. Refills 3, Maintenance, 04/17/23 11:02:00 EST, Route to Pharmacy Electronically, [facility] #[id number], Partial fill upon patient request if the prescription is for a schedule II o... Start Date: 04/17/23 Status: Ordered levothyroxine 137 mcg (0.137 mg) oral capsule 1 capsule = 137 mcg, By Mouth, Daily, # 30 capsule, 11 Refills, Maintenance, 02/21/23 15:47:00 EST,Capsule, [facility] #[id number], Partial fill upon patient request if the prescription is for a schedule II opioid drug., 156.6, cm, 02/21/23 10:1... Start Date: 02/21/23 Status: Ordered Multivitamins with Vitamin B Complex, Vitamin C, Minerals and L- Methylfolate oral capsule 1 capsule, By Mouth, Daily, # 90 capsule, 5 Refills, Maintenance, 09/11/22 17:02:00 EDT, Capsule, [facility] #[id number], Partial fill upon patient request if the prescription is for a schedule II opioid drug., 1 capsule By Mouth Daily,x90 days,... Start Date: 09/11/22 Stop Date: 03/04/24 Status: Ordered pyridoxine 25 mg oral tablet 1 tablet = 25 mg, By Mouth, 3 times a day, PRN Nausea & Vomiting, # 30 tablet, 0 Refills, Maintenance, 11/27/22 16:46:00 EDT, Tablet, [facility] #[id number], Partial fill upon patient request if the prescription is for a schedule II opioid drug.,... Start Date: 11/27/22 Status: Ordered Slow Fe (as elemental iron) 45 mg oral tablet, extended release 1 tablet = 45 mg, By Mouth, Daily, # 30 tablet, 2 Refills, Maintenance, 05/16/23 9:05:00 EDT, [facility] #[id number], Partial fill upon patient request if the prescription is for a schedule II opioid drug., 155, cm, 05/16/23 8:54:00 EDT, Height,... Start Date: 05/16/23 Status: Ordered ursodiol 300 mg oral capsule 300 mg, 1, capsule, By Mouth, 3 times a day, # 90 capsule, Refills 3, Tot. Refills 3, Maintenance, 04/15/23 10:22:00 EST, Route to Pharmacy Electronically, [facility] #[id number], Partial fill upon patient request if the prescription is for a sujit... Start Date: 04/15/23 Status: Ordered ZyrTEC 10 mg oral tablet 1 tablet = 10 mg, By Mouth, Daily, PRN for allergy symptoms, # 30 tablet, 4 Refills, Maintenance, 09/06/22 11:37:00 EDT, Tablet, [facility] #[id number], Partial fill upon patient request if the prescription is for a schedule II opioid drug., 156.... Start Date: 09/06/22 Status: Ordered Problem List Condition Confirmation Course Effective Dates Status H ealth Status Informant H/O Abnormal Pap smear of cervix Confirmed Active Environmental and seasonal allergies Confirmed Active Anemia in Confirmed Active Chronic low back pain Confirmed [...] Team Personnel Name: Huber Salinas MD Position: [facility] Resident Member Role: PCP Address: Address: [address] [facility] [place] [address]- Care Team Related Persons Name: NEEMA MCGHEE Address: home [address] [place] [address]
--- OUTSIDE RECORDS SUMMARY | 2023-09-25 13:44 | XMS_ITS | Continuity of Care Document ---
Author Organization [facility] Address [address] [place] [address]- Care Team Providers Care Regulatory Compliance Engineer Name Role Phone AlexandreKandi mayer DO Primary Care Physician [place] [facility] [place] - 09/12/[address] [address]- Attending Physician: Not on Staff, Attending MD Referring Physician: Courtney Welch MD Allergies, Adverse Reactions, Alerts No Known [...] Replace Required Details, Route to Pharmacy Electronically, [facility] #[id number], Partial fill upon pa... Start Date: 12/27/22 Status: Ordered levothyroxine 137 mcg (0.137 mg) oral capsule 1 capsule = 137 mcg, By Mouth, Daily, # 30 capsule, 11 Refills, Maintenance, 02/21/23 15:47:00 EST,Capsule, [facility] #[id number], Partial fill upon patient request if the prescription is for a schedule II opioid drug., 156.6, cm, 02/21/23 10:1... Start Date: 02/21/23 Status: Ordered norethindrone 0.35 mg oral tablet 1 tablet = 0.35 mg, By Mouth, Daily, # 84 tablet, 0 Refills, Maintenance, 06/24/23 6:52:00 EDT, Tablet, [facility] #[id number], Partial fill upon patient request if the prescription is for a schedule II opioid drug., 155, cm, 06/24/23 0:00:00 EDT... Start Date: 06/24/23 Status: Ordered NuvaRing 0.015 mg-0.120 mg vaginal ring 1 each, Vaginally, Every 28 days, # 3 each, 0 Refills, Maintenance, 08/18/23 8:52:00 EDT, [facility] #[id number], Partial fill upon patient request if the prescription is for a schedule II opioid drug., 1 each Vaginally Every 28 days, 155, cm, 06... Start Date: 08/18/23 Status: Ordered Multivitamins with Vitamin B Complex, Vitamin C, Minerals and L- Methylfolate oral capsule 1 capsule, By Mouth, Daily, # 90 capsule, 5 Refills, Maintenance, 09/11/22 17:02:00 EDT, Capsule, [facility] #[id number], Partial fill upon patient request if the prescription is for a schedule II opioid drug., 1 capsule By Mouth Daily,x90 days,... Start Date: 09/11/22 Stop Date: 03/04/24 Status: Ordered pyridoxine 25 mg oral tablet 1 tablet = 25 mg, By Mouth, 3 times a day, PRN Nausea & Vomiting, # 30 tablet, 0 Refills, Maintenance, 11/27/22 16:46:00 EDT, Tablet, [facility] #[id number], Partial fill upon patient request if the prescription is for a schedule II opioid drug.,... Start Date: 11/27/22 Status: Ordered Slow Fe (as elemental iron) 45 mg oral tablet, extended release 1 tablet = 45 mg, By Mouth, Daily, # 30 tablet, 2 Refills, Maintenance, 05/16/23 9:05:00 EDT, [facility] #[id number], Partial fill upon patient request if the prescription is for a schedule II opioid drug., 155, cm, 05/16/23 8:54:00 EDT, Height,... Start Date: 05/16/23 Status: Ordered ursodiol 300 mg oral capsule 300 mg, 1, capsule, By Mouth, 3 times a day, # 90 capsule, Refills 3, Tot. Refills 3, Maintenance, 04/15/23 10:22:00 EST, Route to Pharmacy Electronically, [facility] #[id number], Partial fill upon patient request if the prescription is for a sujit... Start Date: 04/15/23 Status: Ordered Valtrex 500 mg oral tablet 500 mg, 1, tablet, By Mouth, Every 12 hours, # 60 tablet, Refills 0, Tot. Refills 0, Maintenance, 06/13/23 10:49:00 EDT, Route to Pharmacy Electronically, [facility] #[id number], Partial fill upon patient request if the prescription is for a sche... Start Date: 06/13/23 Status: Ordered ZyrTEC 10 mg oral tablet 1 tablet = 10 mg, By Mouth, Daily, PRN for allergy symptoms, # 30 tablet, 4 Refills, Maintenance, 09/06/22 11:37:00 EDT, Tablet, [facility] #[id number], Partial fill upon patient request if the [...] S Resident Member Role: PCP Address: Address: [address] [place] [address] [place] [address]- Care Team Related Persons Name: KANDI MARIE Address: [address] Address: home [address] [address] Name: NEEMA MCGHEE Address: home [address] [place] [address]
--- OUTSIDE RECORDS SUMMARY | 2023-09-25 13:44 | XMS_ITS | Continuity of Care Document ---
Author Organization [facility] Address [address] [place] [address]- Care Team Providers Care Tour Bus Driver/Guide Name Role Phone Brad RICH, Huber Forrester Primary Care Physician [phone] Encounter [facility] [id number] Date(s): 04/15/23 - 08/03/[address] [address] Attending Physician: Michelle Garrido Admitting Physician: Michelle Garrido Allergies, Adverse Reactions, Alerts No Known Medication [...] Replace Required Details, Route to Pharmacy Electronically, [facility] #[id number], Partial fill upon pa... Start Date: 12/27/22 Status: Ordered levothyroxine 137 mcg (0.137 mg) oral capsule 1 capsule = 137 mcg, By Mouth, Daily, # 30 capsule, 11 Refills, Maintenance, 02/21/23 15:47:00 EST,Capsule, [facility] #[id number], Partial fill upon patient request if the prescription is for a schedule II opioid drug., 156.6, cm, 02/21/23 10:1... Start Date: 02/21/23 Status: Ordered norethindrone 0.35 mg oral tablet 1 tablet = 0.35 mg, By Mouth, Daily, # 84 tablet, 0 Refills, Maintenance, 06/24/23 6:52:00 EDT, Tablet, [facility] #[id number], Partial fill upon patient request if the prescription is for a schedule II opioid drug., 155, cm, 06/24/23 0:00:00 EDT... Start Date: 06/24/23 Status: Ordered Multivitamins with Vitamin B Complex, Vitamin C, Minerals and L- Methylfolate oral capsule 1 capsule, By Mouth, Daily, # 90 capsule, 5 Refills, Maintenance, 09/11/22 17:02:00 EDT, Capsule, [facility] #[id number], Partial fill upon patient request if the prescription is for a schedule II opioid drug., 1 capsule By Mouth Daily,x90 days,... Start Date: 09/11/22 Stop Date: 03/04/24 Status: Ordered pyridoxine 25 mg oral tablet 1 tablet = 25 mg, By Mouth, 3 times a day, PRN Nausea & Vomiting, # 30 tablet, 0 Refills, Maintenance, 11/27/22 16:46:00 EDT, Tablet, [facility] #[id number], Partial fill upon patient request if the prescription is for a schedule II opioid drug.,... Start Date: 11/27/22 Status: Ordered Slow Fe (as elemental iron) 45 mg oral tablet, extended release 1 tablet = 45 mg, By Mouth, Daily, # 30 tablet, 2 Refills, Maintenance, 05/16/23 9:05:00 EDT, [facility] #[id number], Partial fill upon patient request if the prescription is for a schedule II opioid drug., 155, cm, 05/16/23 8:54:00 EDT, Height,... Start Date: 05/16/23 Status: Ordered ursodiol 300 mg oral capsule 300 mg, 1, capsule, By Mouth, 3 times a day, # 90 capsule, Refills 3, Tot. Refills 3, Maintenance, 04/15/23 10:22:00 EST, Route to Pharmacy Electronically, [facility] #[id number], Partial fill upon patient request if the prescription is for a sujit... Start Date: 04/15/23 Status: Ordered Valtrex 500 mg oral tablet 500 mg, 1, tablet, By Mouth, Every 12 hours, # 60 tablet, Refills 0, Tot. Refills 0, Maintenance, 06/13/23 10:49:00 EDT, Route to Pharmacy Electronically, [facility] #[id number], Partial fill upon patient request if the prescription is for a sche... Start Date: 06/13/23 Status: Ordered ZyrTEC 10 mg oral tablet 1 tablet = 10 mg, By Mouth, Daily, PRN for allergy symptoms, # 30 tablet, 4 Refills, Maintenance, 09/06/22 11:37:00 EDT, Tablet, [facility] #[id number], Partial fill upon patient request if the [...] Team Personnel Name: Huber Salinas MD Position: [facility] Resident Member Role: PCP Address: Address: [address] [facility] [place] [address]- Care Team Related Persons Name: DUANE MARIE Address: [address] Address: [address] [address] [place] Name: NEEMA MCGHEE Address: home [address] [place] [address]
--- OUTSIDE RECORDS SUMMARY | 2023-09-25 13:44 | XMS_ITS | Continuity of Care Document ---
Author Organization [facility] Address [address] [place] [address]- Care Team Providers Care Tanning Wheel Filler Name Role Phone Brad RICH, Huber Forrester Primary Care Physician Encounter [facility] [place] Date(s): 12/12/22 - 01/11/[address] [address]- Allergies, Adverse Reactions, Alerts No Known Medication Allergies Immunizations Given and Recorded Vaccine Date Status Refusal Reason influenza virus vaccine, inactivated 12/27/22 Give n influenza virus vaccine, inactivated 03/30/19 Give n influenza virus vaccine, inactivated 04/05/15 Give n tetanus/diphtheria/pertussis, acel(Tdap) 07/08/14 Given Medications aspirin 81 mg oral delayed release tablet See Instructions, 2 tablet By Mouth Daily at bedtime, # 60 tablet, Refills 8, Tot. Refills 8, Maintenance, 12/27/22 9:43:00 EDT, Instructions Replace Required Details, Route to Pharmacy Electronically, [facility] #[id number], Partial fill upon pa... Start Date: 12/27/22 Status: Ordered levothyroxine 0.1 mg oral tablet See Instructions, 1 tablet By Mouth from Friday to Friday and two tablets on Friday and Friday, 90 days supply, # 102 tablet, 4 Refills, Physician Stop 01/28/23 8:15:00 EST, 12/17/22 8:14:00 EDT, [facility] #[id number], 156.6, cm, 11/27/22 9:34... Start Date: 12/17/22 Stop Date: 01/28/23 Status: Ordered Multivitamins with Vitamin B Complex, Vitamin C, Minerals and L- Methylfolate oral capsule 1 capsule, By Mouth, Daily, # 90 capsule, 5 Refills, Maintenance, 09/11/22 17:02:00 EDT, Capsule, [facility] #[id number], Partial fill upon patient request if the prescription is for a schedule II opioid drug., 1 capsule By Mouth Daily,x90 days,... Start Date: 09/11/22 Stop Date: 03/04/24 Status: Ordered pyridoxine 25 mg oral tablet 1 tablet = 25 mg, By Mouth, 3 times a day, PRN Nausea & Vomiting, # 30 tablet, 0 Refills, Maintenance, 11/27/22 16:46:00 EDT, Tablet, [facility] #[id number], Partial fill upon patient request if the prescription is for a schedule II opioid drug.,... Start Date: 11/27/22 Status: Ordered ZyrTEC 10 mg oral tablet 1 tablet = 10 mg, By Mouth, Daily, PRN for allergy symptoms, # 30 tablet, 4 Refills, Maintenance, 09/06/22 11:37:00 EDT, Tablet, [facility] #[id number], Partial fill upon patient request if the [...] Team Personnel Name: Huber Salinas MD Position: S Resident Member Role: PCP Address: Address: [address] [place] [address] [place] [address]- Care Team Related Persons Name: NEEMA MCGHEE Address: home [address] [place] [address]
--- OUTSIDE RECORDS SUMMARY | 2023-09-25 13:44 | XMS_ITS | Continuity of Care Document ---
Author Organization [facility] Address [address] [place] [address]- Care Team Providers Care Ceramics Artist Name Role Phone Brad RICH, Huber Cuellarpushpa Primary Care Physician En[place] [facility] [place] [id number] Date(s): 06/10/23 - 06/10/[address] [address]- Discharge Disposition: A-D/C Home Attending Physician: Shani You DO Admitting Physician: Shani You DO Referring Physician: Kallie Uribe NP Allergies, Adverse Reactions, Alerts No Known Medication [...] Replace Required Details, Route to Pharmacy Electronically, [facility] #[id number], Partial fill upon pa... Start Date: 12/27/22 Status: Ordered levothyroxine 137 mcg (0.137 mg) oral capsule 1 capsule = 137 mcg, By Mouth, Daily, # 30 capsule, 11 Refills, Maintenance, 02/21/23 15:47:00 EST,Capsule, [facility] #[id number], Partial fill upon patient request if the prescription is for a schedule II opioid drug., 156.6, cm, 02/21/23 10:1... Start Date: 02/21/23 Status: Ordered Multivitamins with Vitamin B Complex, Vitamin C, Minerals and L- Methylfolate oral capsule 1 capsule, By Mouth, Daily, # 90 capsule, 5 Refills, Maintenance, 09/11/22 17:02:00 EDT, Capsule, [facility] #[id number], Partial fill upon patient request if the prescription is for a schedule II opioid drug., 1 capsule By Mouth Daily,x90 days,... Start Date: 09/11/22 Stop Date: 03/04/24 Status: Ordered pyridoxine 25 mg oral tablet 1 tablet = 25 mg, By Mouth, 3 times a day, PRN Nausea & Vomiting, # 30 tablet, 0 Refills, Maintenance, 11/27/22 16:46:00 EDT, Tablet, [facility] #[id number], Partial fill upon patient request if the prescription is for a schedule II opioid drug.,... Start Date: 11/27/22 Status: Ordered Slow Fe (as elemental iron) 45 mg oral tablet, extended release 1 tablet = 45 mg, By Mouth, Daily, # 30 tablet, 2 Refills, Maintenance, 05/16/23 9:05:00 EDT, [facility] #[id number], Partial fill upon patient request if the prescription is for a schedule II opioid drug., 155, cm, 05/16/23 8:54:00 EDT, Height,... Start Date: 05/16/23 Status: Ordered ursodiol 300 mg oral capsule 300 mg, 1, capsule, By Mouth, 3 times a day, # 90 capsule, Refills 3, Tot. Refills 3, Maintenance, 04/15/23 10:22:00 EST, Route to Pharmacy Electronically, [facility] #[id number], Partial fill upon patient request if the prescription is for a sujit... 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
--- OUTSIDE RECORDS SUMMARY | 2023-09-25 13:44 | XMS_ITS | Continuity of Care Document ---
Author Organization [facility] Address [address] [place] [address]- Care Team Providers Care Estate Planner Name Role Phone Brad RICH, Huber Forrester [facility] Phys[id number] Date[facility]s): [facility]/07[facility]23 - 07/07/[address] [address] Allergies, Adverse Reactions, Alerts No [...] Replace Required Details, Route to Pharmacy Electronically, [facility] #[id number], Partial fill upon pa... Start Date: 12/27/22 Status: Ordered levothyroxine 137 mcg (0.137 mg) oral capsule 1 capsule = 137 mcg, By Mouth, Daily, # 30 capsule, 11 Refills, Maintenance, 02/21/23 15:47:00 EST,Capsule, [facility] #[id number], Partial fill upon patient request if the prescription is for a schedule II opioid drug., 156.6, cm, 02/21/23 10:1... Start Date: 02/21/23 Status: Ordered norethindrone 0.35 mg oral tablet 1 tablet = 0.35 mg, By Mouth, Daily, # 84 tablet, 0 Refills, Maintenance, 06/24/23 6:52:00 EDT, Tablet, [facility] #[id number], Partial fill upon patient request if the prescription is for a schedule II opioid drug., 155, cm, 06/24/23 0:00:00 EDT... Start Date: 06/24/23 Status: Ordered Multivitamins with Vitamin B Complex, Vitamin C, Minerals and L- Methylfolate oral capsule 1 capsule, By Mouth, Daily, # 90 capsule, 5 Refills, Maintenance, 09/11/22 17:02:00 EDT, Capsule, [facility] #[id number], Partial fill upon patient request if the prescription is for a schedule II opioid drug., 1 capsule By Mouth Daily,x90 days,... Start Date: 09/11/22 Stop Date: 03/04/24 Status: Ordered pyridoxine 25 mg oral tablet 1 tablet = 25 mg, By Mouth, 3 times a day, PRN Nausea & Vomiting, # 30 tablet, 0 Refills, Maintenance, 11/27/22 16:46:00 EDT, Tablet, [facility] #[id number], Partial fill upon patient request if the prescription is for a schedule II opioid drug.,... Start Date: 11/27/22 Status: Ordered Slow Fe (as elemental iron) 45 mg oral tablet, extended release 1 tablet = 45 mg, By Mouth, Daily, # 30 tablet, 2 Refills, Maintenance, 05/16/23 9:05:00 EDT, [facility] #[id number], Partial fill upon patient request if the prescription is for a schedule II opioid drug., 155, cm, 05/16/23 8:54:00 EDT, Height,... Start Date: 05/16/23 Status: Ordered ursodiol 300 mg oral capsule 300 mg, 1, capsule, By Mouth, 3 times a day, # 90 capsule, Refills 3, Tot. Refills 3, Maintenance, 04/15/23 10:22:00 EST, Route to Pharmacy Electronically, [facility] #[id number], Partial fill upon patient request if the prescription is for a sujit... Start Date: 04/15/23 Status: Ordered Valtrex 500 mg oral tablet 500 mg, 1, tablet, By Mouth, Every 12 hours, # 60 tablet, Refills 0, Tot. Refills 0, Maintenance, 06/13/23 10:49:00 EDT, Route to Pharmacy Electronically, [facility] #[id number], Partial fill upon patient request if the prescription is for a sche... Start Date: 06/13/23 Status: Ordered ZyrTEC 10 mg oral tablet 1 tablet = 10 mg, By Mouth, Daily, PRN for allergy symptoms, # 30 tablet, 4 Refills, Maintenance, 09/06/22 11:37:00 EDT, Tablet, [facility] #[id number], Partial fill upon patient request if the [...] S Resident Member Role: PCP Address: Address: [address] [facility] [place] [address]- Care Team Related Persons Name: DUANE MARIE Address: Address: home [address] [address] [place] Name: NEEMA MCGHEE Address: home [address] [place] [address]
--- OUTSIDE RECORDS SUMMARY | 2023-09-25 13:44 | XMS_ITS | Continuity of Care Document ---
Author Organization [facility] Address [address] [place] [address]- Care Team Providers Care Utility Specialist Name Role Phone Huber Salinas MDpushpa Primary Care Physician Encounter [facility] [place] Date(s): 02/21/23 - 03/23/23 [facility] [address] [place] [address]- Allergies, Adverse Reactions, Alerts No Known Medication [...] Replace Required Details, Route to Pharmacy Electronically, [facility] #[id number], Partial fill upon pa... Start Date: 12/27/22 Status: Ordered levothyroxine 137 mcg (0.137 mg) oral capsule 1 capsule = 137 mcg, By Mouth, Daily, # 30 capsule, 11 Refills, Maintenance, 02/21/23 15:47:00 EST,Capsule, [facility] #[id number], Partial fill upon patient request if the prescription is for a schedule II opioid drug., 156.6, cm, 02/21/23 10:1... Start Date: 02/21/23 Status: Ordered Multivitamins with Vitamin B Complex, Vitamin C, Minerals and L- Methylfolate oral capsule 1 capsule, By Mouth, Daily, # 90 capsule, 5 Refills, Maintenance, 09/11/22 17:02:00 EDT, Capsule, [facility] #[id number], Partial fill upon patient request if the prescription is for a schedule II opioid drug., 1 capsule By Mouth Daily,x90 days,... Start Date: 09/11/22 Stop Date: 03/04/24 Status: Ordered pyridoxine 25 mg oral tablet 1 tablet = 25 mg, By Mouth, 3 times a day, PRN Nausea & Vomiting, # 30 tablet, 0 Refills, Maintenance, 11/27/22 16:46:00 EDT, Tablet, [facility] #[id number], Partial fill upon patient request if the prescription is for a schedule II opioid drug.,... Start Date: 11/27/22 Status: Ordered ZyrTEC 10 mg oral tablet 1 tablet = 10 mg, By Mouth, Daily, PRN for allergy symptoms, # 30 tablet, 4 Refills, Maintenance, 09/06/22 11:37:00 EDT, Tablet, [facility] #[id number], Partial fill upon patient request if the [...] S Resident Member Role: PCP Address: Address: [address] [place] [address] [place] [address]- Care Team Related Persons Name: NEEMA MCGHEE Address: home [address] [place] [address]
--- OUTSIDE RECORDS SUMMARY | 2023-09-25 13:44 | XMS_ITS | Continuity of Care Document ---
Author Organization [facility] Address [address] [place] [address]- Care Team Providers Care Firestopper Installer Name Role Phone Brad RICH, Huber Forrester Primary Care Physician [phone] Encounter [facility] [place] Date(s): 01/10/23 - 02/09/[address] [address]- Allergies, Adverse Reactions, Alerts No Known Medication [...] Replace Required Details, Route to Pharmacy Electronically, [facility] #[id number], Partial fill upon pa... Start Date: 12/27/22 Status: Ordered Multivitamins with Vitamin B Complex, Vitamin C, Minerals and L- Methylfolate oral capsule 1 capsule, By Mouth, Daily, # 90 capsule, 5 Refills, Maintenance, 09/11/22 17:02:00 EDT, Capsule, [facility] #[id number], Partial fill upon patient request if the prescription is for a schedule II opioid drug., 1 capsule By Mouth Daily,x90 days,... Start Date: 09/11/22 Stop Date: 03/04/24 Status: Ordered pyridoxine 25 mg oral tablet 1 tablet = 25 mg, By Mouth, 3 times a day, PRN Nausea & Vomiting, # 30 tablet, 0 Refills, Maintenance, 11/27/22 16:46:00 EDT, Tablet, [facility] #[id number], Partial fill upon patient request if the prescription is for a schedule II opioid drug.,... Start Date: 11/27/22 Status: Ordered ZyrTEC 10 mg oral tablet 1 tablet = 10 mg, By Mouth, Daily, PRN for allergy symptoms, # 30 tablet, 4 Refills, Maintenance, 09/06/22 11:37:00 EDT, Tablet, [facility] #[id number], Partial fill upon patient request if the [...] S Resident Member Role: PCP Address: Address: [address] [place] [address] [place] [address]- Care Team Related Persons Name: NEEMA MCGHEE Address: home [address] [place] [address]
--- OUTSIDE RECORDS SUMMARY | 2023-09-25 13:44 | XMS_ITS | Continuity of Care Document ---
Author Organization [facility] Address [address] [place] [address]- Care Team Providers Care Ct Tech Name Role Phone Huber Salinas MD [facility] Primary Care Physician En[facility] [place] Date(s): 09/06/22 - 10/06/22 [facility] [address] [place], [place] [address] Attending Physician: Jazmine Gray Admitting Physician: AdmtrJazmine [...] Stop 02/16/23 11:19:00 EST, 11/23/21 11:19:00 EDT, [facility] #[id number], 156.6, cm, 11/23/21 11:09:00 EDT, Height Start Date: 11/23/21 Stop Date: 02/16/23 Status: Ordered Multivitamins with Vitamin B Complex, Vitamin C, Minerals and L- Methylfolate oral capsule 1 capsule, By Mouth, Daily, # 90 capsule, 5 Refills, Maintenance, 09/11/22 17:02:00 EDT, Capsule, [facility] #[id number], Partial fill upon patient request if the prescription is for a schedule II opioid drug., 1 capsule By Mouth Daily,x90 days,... Start Date: 09/11/22 Stop Date: 03/04/24 Status: Ordered ZyrTEC 10 mg oral tablet 1 tablet = 10 mg, By Mouth, Daily, PRN for allergy symptoms, # 30 tablet, 4 Refills, Maintenance, 09/06/22 11:37:00 EDT, Tablet, [facility] #[id number], Partial fill upon patient request [...] in lifetime) entered on: 09/06/22 Sex Female Laboratory * Event Display: Non Lab Results Authored Date: * Vega RICH (Internal Medicine) , Ya: PERFORM Event Display: Non Lab Results Authored Date: [id number] tsh 13, ft4 0.82 Patient Care team information Care Team Personnel Name: Brad RICH, Huber Forrester Position: [facility] Resident Member Role: PCP Address: Address: [address] [place] [address] [place] [address]- Care Team Related Persons Name: NEEMA MCGHEE Address: home [address] [place] [address]
--- OUTSIDE RECORDS SUMMARY | 2023-09-25 13:44 | XMS_ITS | Continuity of Care Document ---
Author Organization [facility] Address [address] [place] [address]- Care Team Providers Care Groundwater Monitoring Technician Name Role Phone Brad RIHC, Huber Forrester Primary [facility] Phys[id number] Date[facility]s): 04/17/23 - 05/17/[address] [address] Allergies, Adverse Reactions, Alerts No Known Medication [...] Replace Required Details, Route to Pharmacy Electronically, [facility] #[id number], Partial fill upon pa... Start Date: 12/27/22 Status: Ordered ferrous sulfate 325 mg oral enteric coated tablet 325 mg, 1, tablet, By Mouth, Daily, # 90 tablet, Refills 3, Tot. Refills 3, Maintenance, 04/17/23 11:02:00 EST, Route to Pharmacy Electronically, [facility] #[id number], Partial fill upon patient request if the prescription is for a schedule II o... Start Date: 04/17/23 Status: Ordered levothyroxine 137 mcg (0.137 mg) oral capsule 1 capsule = 137 mcg, By Mouth, Daily, # 30 capsule, 11 Refills, Maintenance, 02/21/23 15:47:00 EST,Capsule, [facility] #[id number], Partial fill upon patient request if the prescription is for a schedule II opioid drug., 156.6, cm, 02/21/23 10:1... Start Date: 02/21/23 Status: Ordered Multivitamins with Vitamin B Complex, Vitamin C, Minerals and L- Methylfolate oral capsule 1 capsule, By Mouth, Daily, # 90 capsule, 5 Refills, Maintenance, 09/11/22 17:02:00 EDT, Capsule, [facility] #[id number], Partial fill upon patient request if the prescription is for a schedule II opioid drug., 1 capsule By Mouth Daily,x90 days,... Start Date: 09/11/22 Stop Date: 03/04/24 Status: Ordered pyridoxine 25 mg oral tablet 1 tablet = 25 mg, By Mouth, 3 times a day, PRN Nausea & Vomiting, # 30 tablet, 0 Refills, Maintenance, 11/27/22 16:46:00 EDT, Tablet, [facility] #[id number], Partial fill upon patient request if the prescription is for a schedule II opioid drug.,... Start Date: 11/27/22 Status: Ordered Slow Fe (as elemental iron) 45 mg oral tablet, extended release 1 tablet = 45 mg, By Mouth, Daily, # 30 tablet, 2 Refills, Maintenance, 05/16/23 9:05:00 EDT, [facility] #[id number], Partial fill upon patient request if the prescription is for a schedule II opioid drug., 155, cm, 05/16/23 8:54:00 EDT, Height,... Start Date: 05/16/23 Status: Ordered ursodiol 300 mg oral capsule 300 mg, 1, capsule, By Mouth, 3 times a day, # 90 capsule, Refills 3, Tot. Refills 3, Maintenance, 04/15/23 10:22:00 EST, Route to Pharmacy Electronically, [facility] #[id number], Partial fill upon patient request if the prescription is for a sujit... Start Date: 04/15/23 Status: Ordered ZyrTEC 10 mg oral tablet 1 tablet = 10 mg, By Mouth, Daily, PRN for allergy symptoms, # 30 tablet, 4 Refills, Maintenance, 09/06/22 11:37:00 EDT, Tablet, [facility] #[id number], Partial fill upon patient request if the [...] Personnel Name: Brad RICH, Huber Forrester Position: [facility] Resident Member Role: PCP Address: Address: [address] [place] [address] [place] [address]- Care Team Related Persons Name: NEEMA MCGHEE Address: home [address] [place] [address]
--- OUTSIDE RECORDS SUMMARY | 2023-09-25 13:44 | XMS_ITS | Continuity of Care Document ---
Author Organization [facility] Address [address] [place] [address]- Care Team Providers Care Fox Raiser Name Role Phone Brad RICH, [facility] [place] [facility] [place] 09/13/22 - 10/13/22 [facility] [address], [place] [address] Allergies, Adverse Reactions, Alerts No Known Medication Allergies Immunizations Given and Recorded Vaccine Date Status Refusal Reason influenza virus vaccine, inactivated 03/30/19 Give n influenza virus vaccine, inactivated 04/05/15 Give n tetanus/diphtheria/pertussis, acel(Tdap) 07/08/14 Given Medications levothyroxine 0.1 mg oral tablet 1 tablet, By Mouth, Daily, for 90 days, # 90 tablet, 4 Refills, Physician Stop 02/16/23 11:19:00 EST, 11/23/21 11:19:00 EDT, [facility] #[id number], 156.6, cm, 11/23/21 11:09:00 EDT, Height Start Date: 11/23/21 Stop Date: 02/16/23 Status: Ordered Multivitamins with Vitamin B Complex, Vitamin C, Minerals and L- Methylfolate oral capsule 1 capsule, By Mouth, Daily, # 90 capsule, 5 Refills, Maintenance, 09/11/22 17:02:00 EDT, Capsule, [facility], [facility] #[id number], Partial fill upon patient request if the prescription is for a schedule II opioid drug., 1 capsule By Mouth Daily,x90 days,... Start Date: 09/11/22 Stop Date: 03/04/24 Status: Ordered ZyrTEC 10 mg oral tablet 1 tablet = 10 mg, By Mouth, Daily, PRN for allergy symptoms, # 30 tablet, 4 Refills, Maintenance, 09/06/22 11:37:00 EDT, Tablet, [facility], [facility] #[id number], Partial fill upon patient request if the [...] Personnel Name: Brad RICH, Huber Forrester Position: [facility] Resident Member Role: PCP Address: Address: [address] [place] [address] [place] [address]- Care Team Related Persons Name: NEEMA MCGHEE Address: home [address] [place] [address]
--- OUTSIDE RECORDS SUMMARY | 2023-09-25 13:44 | XMS_ITS | Continuity of Care Document ---
Author Organization [facility] ter Address [address] [place] [address]- Care Team Providers Care It Program Engagement Director Name Role Phone Huber Salinas MD Primary Care Physician [phone] Encounter [facility] Date(s): 04/18/23 - 04/18/[address] [address] Attending Physician: Kalpana Alfaro CNM Allergies, Adverse Reactions, [...] Replace Required Details, Route to Pharmacy Electronically, [facility] #[id number], Partial fill upon pa... Start Date: 12/27/22 Status: Ordered ferrous sulfate 325 mg oral enteric coated tablet 325 mg, 1, tablet, By Mouth, Daily, # 90 tablet, Refills 3, Tot. Refills 3, Maintenance, 04/17/23 11:02:00 EST, Route to Pharmacy Electronically, [facility] #[id number], Partial fill upon patient request if the prescription is for a schedule II o... Start Date: 04/17/23 Status: Ordered levothyroxine 137 mcg (0.137 mg) oral capsule 1 capsule = 137 mcg, By Mouth, Daily, # 30 capsule, 11 Refills, Maintenance, 02/21/23 15:47:00 EST,Capsule, [facility] #[id number], Partial fill upon patient request if the prescription is for a schedule II opioid drug., 156.6, cm, 02/21/23 10:1... Start Date: 02/21/23 Status: Ordered Multivitamins with Vitamin B Complex, Vitamin C, Minerals and L- Methylfolate oral capsule 1 capsule, By Mouth, Daily, # 90 capsule, 5 Refills, Maintenance, 09/11/22 17:02:00 EDT, Capsule, [facility] #[id number], Partial fill upon patient request if the prescription is for a schedule II opioid drug., 1 capsule By Mouth Daily,x90 days,... Start Date: 09/11/22 Stop Date: 03/04/24 Status: Ordered pyridoxine 25 mg oral tablet 1 tablet = 25 mg, By Mouth, 3 times a day, PRN Nausea & Vomiting, # 30 tablet, 0 Refills, Maintenance, 11/27/22 16:46:00 EDT, Tablet, [facility] #[id number], Partial fill upon patient request if the prescription is for a schedule II opioid drug.,... Start Date: 11/27/22 Status: Ordered ursodiol 300 mg oral capsule 300 mg, 1, capsule, By Mouth, 3 times a day, # 90 capsule, Refills 3, Tot. Refills 3, Maintenance, 04/15/23 10:22:00 EST, Route to Pharmacy Electronically, [facility] #[id number], Partial fill upon patient request if the prescription is for a sujit... Start Date: 04/15/23 Status: Ordered ZyrTEC 10 mg oral tablet 1 tablet = 10 mg, By Mouth, Daily, PRN for allergy symptoms, # 30 tablet, 4 Refills, Maintenance, 09/06/22 11:37:00 EDT, Tablet, [facility] #[id number], Partial fill upon patient request if the [...] Personnel Name: Brad RICH, Huber Forrester Position: [facility] Resident Member Role: PCP Address: Address: [address] [place] [address] [place] [address]- Care Team Related Persons Name: NEEMA MCGHEE Address: home [address] [place] [address]
--- OUTSIDE RECORDS SUMMARY | 2023-09-25 13:44 | XMS_ITS | Continuity of Care Document ---
Author Organization [facility] Address [address] [place] [address]- Care Team Providers Care Manager Cardiovascular Name Role Phone Brad RICH, Huber Forrester Primary Care Physician [place] [facility] [place] Date(s): 04/07/23 - 05/07/[address] [address] Allergies, Adverse Reactions, Alerts No Known [...] Replace Required Details, Route to Pharmacy Electronically, [facility] #[id number], Partial fill upon pa... Start Date: 12/27/22 Status: Ordered ferrous sulfate 325 mg oral enteric coated tablet 325 mg, 1, tablet, By Mouth, Daily, # 90 tablet, Refills 3, Tot. Refills 3, Maintenance, 04/17/23 11:02:00 EST, Route to Pharmacy Electronically, [facility] #[id number], Partial fill upon patient request if the prescription is for a schedule II o... Start Date: 04/17/23 Status: Ordered levothyroxine 137 mcg (0.137 mg) oral capsule 1 capsule = 137 mcg, By Mouth, Daily, # 30 capsule, 11 Refills, Maintenance, 02/21/23 15:47:00 EST,Capsule, [facility] #[id number], Partial fill upon patient request if the prescription is for a schedule II opioid drug., 156.6, cm, 02/21/23 10:1... Start Date: 02/21/23 Status: Ordered Multivitamins with Vitamin B Complex, Vitamin C, Minerals and L- Methylfolate oral capsule 1 capsule, By Mouth, Daily, # 90 capsule, 5 Refills, Maintenance, 09/11/22 17:02:00 EDT, Capsule, [facility] #[id number], Partial fill upon patient request if the prescription is for a schedule II opioid drug., 1 capsule By Mouth Daily,x90 days,... Start Date: 09/11/22 Stop Date: 03/04/24 Status: Ordered pyridoxine 25 mg oral tablet 1 tablet = 25 mg, By Mouth, 3 times a day, PRN Nausea & Vomiting, # 30 tablet, 0 Refills, Maintenance, 11/27/22 16:46:00 EDT, Tablet, [facility] #[id number], Partial fill upon patient request if the prescription is for a schedule II opioid drug.,... Start Date: 11/27/22 Status: Ordered ursodiol 300 mg oral capsule 300 mg, 1, capsule, By Mouth, 3 times a day, # 90 capsule, Refills 3, Tot. Refills 3, Maintenance, 04/15/23 10:22:00 EST, Route to Pharmacy Electronically, [facility] #[id number], Partial fill upon patient request if the prescription is for a sujit... Start Date: 04/15/23 Status: Ordered ZyrTEC 10 mg oral tablet 1 tablet = 10 mg, By Mouth, Daily, PRN for allergy symptoms, # 30 tablet, 4 Refills, Maintenance, 09/06/22 11:37:00 EDT, Tablet, [facility] #[id number], Partial fill upon patient request if the [...] Personnel Name: Brad RICH, Huber Forrester Position: [facility] Resident Member Role: PCP Address: Address: [address] [place] [address] [place] [address]- Care Team Related Persons Name: NEEMA MCGHEE Address: home [address] [place] [address]
--- OUTSIDE RECORDS SUMMARY | 2023-09-25 13:45 | XMS_ITS | Continuity of Care Document ---
Author Organization [facility] Address [address] [place] [address]- Care Team Providers Care Manager Business Intelligence Name Role Phone Brad RICH, Huber Forrester Primary Care Physician [phone] [id number] Date(s): 04/15/23 - 07/27/[address] [address] Attending Physician: Michelle Garrido Admitting Physician: Michelle [...] Replace Required Details, Route to Pharmacy Electronically, [facility] #[id number], Partial fill upon pa... Start Date: 12/27/22 Status: Ordered levothyroxine 137 mcg (0.137 mg) oral capsule 1 capsule = 137 mcg, By Mouth, Daily, # 30 capsule, 11 Refills, Maintenance, 02/21/23 15:47:00 EST,Capsule, [facility] #[id number], Partial fill upon patient request if the prescription is for a schedule II opioid drug., 156.6, cm, 02/21/23 10:1... Start Date: 02/21/23 Status: Ordered norethindrone 0.35 mg oral tablet 1 tablet = 0.35 mg, By Mouth, Daily, # 84 tablet, 0 Refills, Maintenance, 06/24/23 6:52:00 EDT, Tablet, [facility] #[id number], Partial fill upon patient request if the prescription is for a schedule II opioid drug., 155, cm, 06/24/23 0:00:00 EDT... Start Date: 06/24/23 Status: Ordered Multivitamins with Vitamin B Complex, Vitamin C, Minerals and L- Methylfolate oral capsule 1 capsule, By Mouth, Daily, # 90 capsule, 5 Refills, Maintenance, 09/11/22 17:02:00 EDT, Capsule, [facility] #[id number], Partial fill upon patient request if the prescription is for a schedule II opioid drug., 1 capsule By Mouth Daily,x90 days,... Start Date: 09/11/22 Stop Date: 03/04/24 Status: Ordered pyridoxine 25 mg oral tablet 1 tablet = 25 mg, By Mouth, 3 times a day, PRN Nausea & Vomiting, # 30 tablet, 0 Refills, Maintenance, 11/27/22 16:46:00 EDT, Tablet, [facility] #[id number], Partial fill upon patient request if the prescription is for a schedule II opioid drug.,... Start Date: 11/27/22 Status: Ordered Slow Fe (as elemental iron) 45 mg oral tablet, extended release 1 tablet = 45 mg, By Mouth, Daily, # 30 tablet, 2 Refills, Maintenance, 05/16/23 9:05:00 EDT, [facility] #[id number], Partial fill upon patient request if the prescription is for a schedule II opioid drug., 155, cm, 05/16/23 8:54:00 EDT, Height,... Start Date: 05/16/23 Status: Ordered ursodiol 300 mg oral capsule 300 mg, 1, capsule, By Mouth, 3 times a day, # 90 capsule, Refills 3, Tot. Refills 3, Maintenance, 04/15/23 10:22:00 EST, Route to Pharmacy Electronically, [facility] #[id number], Partial fill upon patient request if the prescription is for a sujit... Start Date: 04/15/23 Status: Ordered Valtrex 500 mg oral tablet 500 mg, 1, tablet, By Mouth, Every 12 hours, # 60 tablet, Refills 0, Tot. Refills 0, Maintenance, 06/13/23 10:49:00 EDT, Route to Pharmacy Electronically, [facility] #[id number], Partial fill upon patient request if the prescription is for a sche... Start Date: 06/13/23 Status: Ordered ZyrTEC 10 mg oral tablet 1 tablet = 10 mg, By Mouth, Daily, PRN for allergy symptoms, # 30 tablet, 4 Refills, Maintenance, 09/06/22 11:37:00 EDT, Tablet, [facility] #[id number], Partial fill upon patient request if the [...] Team Personnel Name: Huber Salinas MD Position: [facility] Resident Member Role: PCP Address: Address: [address] [place] [address]- Care Team Related Persons Name: DUANE MARIE Address: [id number] Address: home [address] [address] [place] Name: NEEMA MCGHEE Address: home [address] [place] [address]
--- OUTSIDE RECORDS SUMMARY | 2023-09-25 13:45 | XMS_ITS | Continuity of Care Document ---
Author Organization [facility] Address [address] [place] [address]- Care Team Providers Care Cupola Liner Helper Name Role Phone Brad RICH, Huber [facility] Primary Care Physician [phone] Encounter [facility] Date(s): 09/08/22 - 10/08/22 [facility] [address] [place] [address] Allergies, Adverse Reactions, Alerts No Known Medication Allergies Immunizations Given and Recorded Vaccine Date Status Refusal Reason influenza virus vaccine, inactivated 03/30/19 Give n influenza virus vaccine, inactivated 04/05/15 Give n tetanus/diphtheria/pertussis, acel(Tdap) 07/08/14 Given Medications levothyroxine 0.1 mg oral tablet 1 tablet, By Mouth, Daily, for 90 days, # 90 tablet, 4 Refills, Physician Stop 02/16/23 11:19:00 EST, 11/23/21 11:19:00 EDT, [facility] #[id number], 156.6, cm, 11/23/21 11:09:00 EDT, Height Start Date: 11/23/21 Stop Date: 02/16/23 Status: Ordered Multivitamins with Vitamin B Complex, Vitamin C, Minerals and L- Methylfolate oral capsule 1 capsule, By Mouth, Daily, # 90 capsule, 5 Refills, Maintenance, 09/11/22 17:02:00 EDT, Capsule, [facility] #[id number], Partial fill upon patient request if the prescription is for a schedule II opioid drug., 1 capsule By Mouth Daily,x90 days,... Start Date: 09/11/22 Stop Date: 03/04/24 Status: Ordered ZyrTEC 10 mg oral tablet 1 tablet = 10 mg, By Mouth, Daily, PRN for allergy symptoms, # 30 tablet, 4 Refills, Maintenance, 09/06/22 11:37:00 EDT, Tablet, [facility] #[id number], Partial fill upon patient request if the [...] Personnel Name: Brad RICH, Huber Forrester Position: [facility] Resident Member Role: PCP Address: Address: [address] [place] [address] [place] [address]- Care Team Related Persons Name: NEEMA MCGHEE Address: home [address] [place] [address]
--- OUTSIDE RECORDS SUMMARY | 2023-09-25 13:45 | XMS_ITS | Continuity of Care Document ---
Author Organization [facility] ter Address [address] [place] [address]- Care Team Providers Care Suction Worker Name Role Phone Brad RICH, Huber [facility] Primary Care Physician Encounter [facility] [id number] Date(s): 06/17/23 - 06/17/[address] [address]- Discharge Disposition: A-D/C Home Attending Physician: Shani [...] Replace Required Details, Route to Pharmacy Electronically, [facility] #[id number], Partial fill upon pa... Start Date: 12/27/22 Status: Ordered levothyroxine 137 mcg (0.137 mg) oral capsule 1 capsule = 137 mcg, By Mouth, Daily, # 30 capsule, 11 Refills, Maintenance, 02/21/23 15:47:00 EST,Capsule, [facility] #[id number], Partial fill upon patient request if the prescription is for a schedule II opioid drug., 156.6, cm, 02/21/23 10:1... Start Date: 02/21/23 Status: Ordered Multivitamins with Vitamin B Complex, Vitamin C, Minerals and L- Methylfolate oral capsule 1 capsule, By Mouth, Daily, # 90 capsule, 5 Refills, Maintenance, 09/11/22 17:02:00 EDT, Capsule, [facility] #[id number], Partial fill upon patient request if the prescription is for a schedule II opioid drug., 1 capsule By Mouth Daily,x90 days,... Start Date: 09/11/22 Stop Date: 03/04/24 Status: Ordered pyridoxine 25 mg oral tablet 1 tablet = 25 mg, By Mouth, 3 times a day, PRN Nausea & Vomiting, # 30 tablet, 0 Refills, Maintenance, 11/27/22 16:46:00 EDT, Tablet, [facility] #[id number], Partial fill upon patient request if the prescription is for a schedule II opioid drug.,... Start Date: 11/27/22 Status: Ordered Slow Fe (as elemental iron) 45 mg oral tablet, extended release 1 tablet = 45 mg, By Mouth, Daily, # 30 tablet, 2 Refills, Maintenance, 05/16/23 9:05:00 EDT, [facility] #[id number], Partial fill upon patient request if the prescription is for a schedule II opioid drug., 155, cm, 05/16/23 8:54:00 EDT, Height,... Start Date: 05/16/23 Status: Ordered ursodiol 300 mg oral capsule 300 mg, 1, capsule, By Mouth, 3 times a day, # 90 capsule, Refills 3, Tot. Refills 3, Maintenance, 04/15/23 10:22:00 EST, Route to Pharmacy Electronically, [facility] #[id number], Partial fill upon patient request if the prescription is for a sujit... Start Date: 04/15/23 Status: Ordered Valtrex 500 mg oral tablet 500 mg, 1, tablet, By Mouth, Every 12 hours, # 60 tablet, Refills 0, Tot. Refills 0, Maintenance, 06/13/23 10:49:00 EDT, Route to Pharmacy Electronically, [facility] #[id number], Partial fill upon patient request if the prescription is for a sche... Start Date: 06/13/23 Status: Ordered ZyrTEC 10 mg oral tablet 1 tablet = 10 mg, By Mouth, Daily, PRN for allergy symptoms, # 30 tablet, 4 Refills, Maintenance, 09/06/22 11:37:00 EDT, Tablet, [facility] #[id number], Partial fill upon patient request if the [...] obesity (BMI 35.0-39.9) with comorbidity Confirmed Active Vital Signs Most recent to oldest [Reference Range]: 1 Height 155 cm (06/17/23 8:00 AM) Social History Social History Type Response Smoking Status Never (less than 100 in lifetime) entered on: 09/06/22 Sex Female Radiology * Event Display: PDC Biophysical Profile * Event Display: PDC Biophysical Profile Authored Date: [id number] OBSTETRICS REPORT PATIENT INFO: CMRN: [id number] BMRN: [id number] : [birth year] (33 yrs)(F) Name: HERLINDA SUAREZ Visit Date: 06/17/2023 09:21 am PERFORMED BY: Performed By: Rosario Grove RDMS Attending: Nhan Cosby MD Associate: Marlena Haro RDMS Referred By: Shelley Cleveland CNM [facility] INDICATIONS: Non-reactive NST (non-stress test) O28.8 Polyhydramnios affecting O40.9XX0 M - BMI O99.21_ E66.01 Cholestasis during , antepartum O26.619 Obesity affecting O99.210 VITAL SIGNS: Weight (lb): 206 Height: 5'2 BMI: 37.67 EVALUATION: Num Of Fetuses: 1 Heart Rate(bpm): 152 Cardiac Activity: Present Presentation: Cephalic Placenta: Anterior Amniotic Fluid ISIAH FV: Polyhydramnios ISIAH Sum(cm) Largest Pocket(cm) 24.8 7.6 RUQ(cm) RLQ(cm) LUQ(cm) LLQ(cm) 7.6 6.3 7 3.9 Comment: Active movements seen. BIOPHYSICAL EVALUATION: Amniotic F.V: Within normal limits F. Tone: Observed F. Movement: Observed Score: 8 F. Breathing: Observed BIOMETRY: OB HISTORY: : 4 Term: 3 Livin GESTATIONAL AGE: LMP: 38w 3d Date: 09/21/22 JIHAN: 06/28/23 Best: 38w 3d Det. By: LMP (09/21/22) JIHAN: 06/28/23 CERVIX UTERUS ADNEXA: Cervix Appears closed COMMENTS: BPP=8/8 Known polyhydramnios was seen again today. Nhan Cosby MD Electronically Signed Final Report 06/17/2023 10:44 am * Event Display: PDC Biophysical Profile Authored Date: Please click on pdf link to open report Patient Care team information Care Team Personnel Name: Brad RICH, Huber Forrester Position: [facility] Resident Member Role: PCP Address: Address: [address] [place] [address] [place] [address]- Name: Pepper Ornelas RN Position: [facility] OB RN Member Role: Patient Care Provider Care Team Related Persons Name: NEEMA MCGHEE Address: home [address] [place] [address]
--- OUTSIDE RECORDS SUMMARY | 2023-09-25 13:45 | XMS_ITS | Continuity of Care Document ---
Author Organization [facility] ter Address [address] [place] [id number]- Care Team Providers Care Assistant Professor Of Radiology Name Role Phone Huber Salinas MD Primary Care Physician [phone] Encounter [facility] [place] Date(s): 04/27/23 - 05/02/[address] [id number] Discharge Disposition: A-D/C Home Attending Physician: Shani You DO Admitting Physician: Shani You DO Referring Physician: Shani You DO Allergies, Adverse Reactions, Alerts No Known Medication [...] Replace Required Details, Route to Pharmacy Electronically, [facility] #[id number], Partial fill upon pa... Start Date: 12/27/22 Status: Ordered ferrous sulfate 325 mg oral enteric coated tablet 325 mg, 1, tablet, By Mouth, Daily, # 90 tablet, Refills 3, Tot. Refills 3, Maintenance, 04/17/23 11:02:00 EST, Route to Pharmacy Electronically, [facility] #[id number], Partial fill upon patient request if the prescription is for a schedule II o... Start Date: 04/17/23 Status: Ordered levothyroxine 137 mcg (0.137 mg) oral capsule 1 capsule = 137 mcg, By Mouth, Daily, # 30 capsule, 11 Refills, Maintenance, 02/21/23 15:47:00 EST,Capsule, [facility] #[id number], Partial fill upon patient request if the prescription is for a schedule II opioid drug., 156.6, cm, 02/21/23 10:1... Start Date: 02/21/23 Status: Ordered Multivitamins with Vitamin B Complex, Vitamin C, Minerals and L- Methylfolate oral capsule 1 capsule, By Mouth, Daily, # 90 capsule, 5 Refills, Maintenance, 09/11/22 17:02:00 EDT, Capsule, [facility] #[id number], Partial fill upon patient request if the prescription is for a schedule II opioid drug., 1 capsule By Mouth Daily,x90 days,... Start Date: 09/11/22 Stop Date: 03/04/24 Status: Ordered pyridoxine 25 mg oral tablet 1 tablet = 25 mg, By Mouth, 3 times a day, PRN Nausea & Vomiting, # 30 tablet, 0 Refills, Maintenance, 11/27/22 16:46:00 EDT, Tablet, [facility] #[id number], Partial fill upon patient request if the prescription is for a schedule II opioid drug.,... Start Date: 11/27/22 Status: Ordered Tylenol 325 mg oral tablet 650 mg, Tablet, By Mouth, 05/01/23 17:00:00 EST Start Date: 05/01/23 Stop Date: 05/01/23 Status: Completed Tylenol 325 mg oral tablet 650 mg, Tablet, By Mouth, 05/02/23 5:00:00 EST Start Date: 05/02/23 Stop Date: 05/02/23 Status: Completed ursodiol 300 mg oral capsule 300 mg, 1, capsule, By Mouth, 3 times a day, # 90 capsule, Refills 3, Tot. Refills 3, Maintenance, 04/15/23 10:22:00 EST, Route to Pharmacy Electronically, [facility] #[id number], Partial fill upon patient request if the prescription is for a sujit... Start Date: 04/15/23 Status: Ordered ZyrTEC 10 mg oral tablet 1 tablet = 10 mg, By Mouth, Daily, PRN for allergy symptoms, # 30 tablet, 4 Refills, Maintenance, 09/06/22 11:37:00 EDT, Tablet, [facility] #[id number], Partial fill upon patient request if the [...] obesity (BMI 35.0-39.9) with comorbidity Confirmed Active Results Radiology Reports * Exam Date Time Procedure Performing Provider Status 05/01/23 12:07 PM C-Arm < 1 Hour Bandar Pierre; Auth (V erified) Notes: (C-Arm < 1 Hour) Reason For Exam: R Cysto laser stone stent placement RESULT: C-Arm < 1 Hour C-Arm < 1 Hour INDICATION: Reason: R Cysto laser stone stent placement COMPARISONS: None TECHNIQUE: Fluoroscopy support was provided. There was no radiologist in attendance. FLUOROSCOPY TIME: 19.8 seconds EXPOSURE: 0.9678 Gycm2 (Dose Area Product) TECHNOLOGIST TIME: 30 minutes FINDINGS: Fluoroscopy support was provided. There was no radiologist in attendance IMPRESSION: See above. WSN: [id number] Ordering Physician: Lui Todd Dictated By: Chintan Sanchez MD Dictated Date/Time: 05/02/23 10:11 a Reviewed By: Chintan Sanchez MD Signed By: Chintan Sanchez MD Signed Date/Time: 05/02/23 10:11 am Transcribed By: TIMMY Transcribed Date/Time: 05/01/23 6:41 pm * Exam Date Time Procedure Performing Provider Status 05/01/23 12:07 PM Urethrocystography Retrograde Bandar Pierre; Modified Notes: (Urethrocystography Retrograde) Reason For Exam: R Cysto laser stone stent placement RESULT: Urethrocystography Retrograde Urethrocystography Retrograde INDICATION: Cystogram with right retrograde exam and laser lithotripsy with stent placement COMPARISONS: CT 04/28/2023. TECHNIQUE: Fluoroscopy support was provided. There was no radiologist in attendance. Fluoroscopy time: 20 seconds. Technologist time: 30 minutes. Exposure: 4.7 mGy reference air kerma FINDINGS: 5 fluoroscopic spot views are provided. Please see procedural report for further information. IMPRESSION: See above. WSN: [id number] Ordering Physician: Lui Todd Dictated By: Mike Reed MD Dictated Date/Time: 05/01/23 5:00 pm Reviewed By: Mike Reed MD Signed By: Mike Reed MD Signed Date/Time: 05/01/23 5:00 pm Transcribed By: TIMMY Transcribed Date/Time: 05/01/23 4:58 pm * Exam Date Time Procedure Performing Provider Status 04/28/23 8:[address] Abdomen and Pelvi s W/O Contrast Carlos Singletary; Auth (Verified) Notes: (CT Abdomen and Pelvis W/O Contrast) Reason For Exam: Right flank pain, Ultra Low Dose Protocol;Other: RESULT: CT Abdomen and Pelvis W/O Contrast CT Abdomen and Pelvis W/O Contrast INDICATION/CLINICAL QUESTION: Reason: Other:; Right flank pain, Ultra Low Dose Protocol; Clinical Question(s): Calculus; Order Comment: / Calculus. TECHNIQUE: Spiral CT through the abdomen and pelvis without IV contrast formatted in 3 planes. The study was performed without oral contrast. Weight- based protocol using automatic tube modulation wasused to optimize exposure parameters. CTDIvol Body: 1.91 mGy, DLP Body: 102 mGy*cm. COMPARISON: None. FINDINGS: Evaluation of the abdominal and pelvic viscera is suboptimal without intravenous contrast. Evaluation of the abdomen and pelvis is limited by ultra low-dose technique. Mining Consultant View Findings, Lines and Tubes: None. Visualized Chest: . Mild linear atelectasis in the lung bases. No pleural effusion. Diaphragm: Unremarkable. Liver: The liver is fatty. Normal morphology. Gallbladder: No CT evidence of gallbladder pathology. Bile ducts: No biliary ductal dilation. Spleen: Normal. Pancreas: Normal. Adrenal Glands: Normal. Kidneys and Ureters: Mild right-sided hydronephrosis. Mild fullness of the left renal consistent. The ureters are difficult to follow due to low-dose technique. There is a 0.8 x 0.5 cm calcification in the right pelvis (image 111 series 601) that has a linear orientation and is in the region of theright distal ureter. Appearance favors an obstructing right ureteral calculus, although given low-do se technique, it is difficult to exclude a phlebolith. Of note, no phleboliths are seen elsewhere in the pelvis. No left ureteral calculi. Bladder: Bladder is decompressed. Stomach, Small bowel and Large Bowel: The stomach is normal. The small bowel is normal in caliber, with no evidence of bowel obstruction. The rectum is normal. The colon is normal. . Appendix: Not seen, but no evidence of appendicitis. Peritoneum, omentum and mesentery: No ascites or pneumoperitoneum. No omental or mesenteric lesions. Lymph nodes: No pathologically enlarged lymph nodes. Blood vessels: Normal. No aneurysm. Abdominal and pelvic wall: Unremarkable. Reproductive organs: Gravid uterus containing a fetus. Anterior placenta. No gross abnormality. Bones: No acute abnormality. IMPRESSION: Mild right-sided hydronephrosis. 0.8 x 0.5 cm elongated calcification in the right pelvis in the region of the right distal ureter. Overall appearance favors an obstructing ureteral calculus, although given low-dose technique and inability to clearly visualize the right ureter, it is difficult to exclude a phlebolith having this appearance. Of note, no phleboliths are seen elsewhere in the pelvis. WSN: [id number] Ordering Physician: Josselyn Whitlock Dictated By: Augusto Jett MD Dictated Date/Time: 04/28/23 9:10 pm Reviewed By: Augusto Jett MD Signed By: Augusto Jett MD Signed Date/Time: 04/28/23 9:10 pm Transcribed By: TIMMY Transcribed Date/Time: 04/28/23 9:00 pm * Exam Date Time Procedure Performing Provider Status 04/27/23 2:14 PM US Retroperitoneum Comp Nilesh Banuelos; Auth (Verified) Notes: (US Retroperitoneum Comp) Reason For Exam: Pain RESULT: US Retroperitoneum Comp US Retroperitoneum Comp INDICATION: Right flank pain. 31 weeks gestational . Follow-up ureter tract dilation. COMPARISON: 04/25/2023 FINDINGS: Right kidney: 12.5 cm. Slightly increased hydronephrosis with transverse pelvic diameter 2 cm, top normal for stage of . No stone or mass. Left kidney: 12.1 cm. No hydronephrosis, stone, scarring or mass. Normal parenchymal thickness and echotexture. Bladder: Normal. No stone, mass, wall thickening or debris. IMPRESSION: Right hydronephrosis with 2 cm transverse pelvic diameter, top normal for stage of gestation. No stone identified. WSN: [id number] Ordering Physician: Love Triana Dictated By: Brandon Serrano MD Dictated Date/Time: 04/27/23 4:06 pm Reviewed By: Brandon Serrano MD Signed By: Brandon Serrano MD Signed Date/Time: 04/27/23 4:06 pm Transcribed By: TIMMY Transcribed Date/Time: 04/27/23 4:01 pm Vital Signs Most recent to oldest [Reference Range]: 1 2 3 Height 155 cm (05/01/23 10:11 AM) 155 cm (04/30/23 8:09 AM) 155 cm (04/29/23 7:20 PM) Weight 107.1 kg (05/01/23 10:11 AM) 107.1 kg (04/27/23 8:30 PM) 107.1 kg (04/27/23 8:25 PM) Oxygen Saturation [94-100 %] 100 % (05/02/23 7:45 AM) 98 % (05/01/23 6:40 PM) 99 % (05/01/23 1:50 PM) Pulse Rate [55-90 bpm] 68 bpm (05/01/23 10:11 AM) 73 bpm (04/30/23 4:04 PM) 73 bpm (04/30/23 8:09 AM) Body Mass Index [18.5-24.99 kg/m2] 44.58 kg/m2 *>HHI* (05/01/23 10:11 AM) 44.58 kg/m2 *>HHI* (04/27/23 8:25 PM) Blood Pressure [90-138/55-84 mm Hg] 109/50mm Hg (05/02/23 7:45 AM) 92/43mm Hg (05/02/23 3:27 AM) 104/58mm Hg (05/02/23 12:30 AM) Respiratory Rate [16-30 br/min] 18 br/min (05/02/23 8:41 AM) 18 br/min (05/01/23 8:40 PM) 18 br/min (05/01/23 6:46 PM) Temperature [96.8-100.4 DegF] 98.1 DegF (05/02/23 7:45 AM) 98.4 DegF (05/01/23 8:40 PM) 98.3 DegF (05/01/23 6:40 PM) Mode of Delivery (Oxygen) Room air (05/02/23 7:45 AM) Room air (05/01/23 6:40 PM) Room air (05/01/23 1:50 PM) Blood pressure sites Arm, left (05/02/23 7:45 AM) Arm, left (05/02/23 3:27 AM) Arm, left (05/02/23 12:30 AM) Temperature Route Oral (05/02/23 7:45 AM) Oral (05/01/23 8:40 PM) Oral (05/01/23 6:40 PM) Dry Weight 107.1 kg (04/27/23 8:25 PM) 107.4 kg (04/27/23 10:14 AM) Weight Obtained Via Standing scale (04/27/23 8:25 PM) Standing scale (04/27/23 10:14 AM) Dry Weight Obtained Via Standing scale (04/27/23 8:25 PM) Standing scale (04/27/23 10:14 AM) Social History Social History Type Response Smoking Status Never (less than 100 in lifetime) entered on: 09/06/22 Sex Female Hospital Progress note * Sue Pop RN: PERFORM, MODIFY, SIGN, VERIFY Event Display: Progress Note Hospital Authored Date: [id number] Patient: HERLINDA SUAREZ Age: 33 years Sex: Female : 1990 Associated Diagnoses: None Author: Sue Pop RN Discharge Information Case Management Discharge Plan : Case Management Discharge Plan Data 04/25/2023 10:38 EST Discharge Level of Care at Discharge Home/Skilled Nursing/Foster Care Pt alert and interacting appropriately. VSS, afebrile. Obstetrically stable. SSE completed this shift, pt closed and not SROM per dr Leander Brenner r/t pt report (see link narrative at 0738). Pt's contractions have stopped s/p 1L fluid bolus per Dr. Leander Brenner, no further actions per provider at this time. Pt went to US this shift. Pt denies bleeding, pain, pressure, cramping, esperanza at this time. Reports +FM. Pt with strings in place r/t stent. Pt is incontinent of urine- dr leander brenner and dr coulter aware, awaiting urology to see patient this shift, no further actions per Dr. Leander Brenner at this time, pt ok for d/c regardless of seeing urology inpatient per dr leander brenner. Pt ambulating around room without difficulty. Pt taking PO without difficulty, denies n/v. IV in place, CD/I, patent. Call nash within reach. Fob at bedside supportive. * Leander Brenner MD, Isrrael: PERFORM, MODIFY Event Display: Progress Note Hospital Authored Date: Patient: ??HERLINDA SUAREZ ? Age:??33 Years?Sex:??Female?:??1990?? LMP/EGA/JIHAN Gestational Age (EGA) and JIHAN? * Note: EGA calculated as of 05/02/2023 ?? JIHAN:??06/28/2023?EGA*:??31 weeks 6 days ? History?(3,0,0,3)?Method:??Last Menstrual Period??(09/21/2022) Subjective In to check on patient this morning. She reports that she has felt two gushes of clear and pink-tinged fluid while voiding this morning. She has applied a pad on and continued leaking. She also reports feeling contractions every 2-3 minutes. She denies brisk vaginal bleeding or decreased movement. Otherwise, she is voiding without difficulty. She has not needed any??pain meds other??than Tyl enol after her procedure. Denies fevers or chills.?? OB Assessment Baby A Baseline:130 Baseline Description:Normal, 110-160 bpm Baseline Variability:Moderate variability Accelerations:Present Deceleration:None Activity:Present Uterine Number of Contractions per 10 minutes5 Monitor Mode, UterineExternal Physical Exam Vitals & Measurements T:??98.1?F?? HR:??62??(Monitored)?? RR:??18?? BP:??109/50?? SpO2:??100%?? HT:??155??cm?? WT:??107.1??kg?? BMI:??44.58?? Membrane Status (SSE): Intact? Ferning:??Negative Nitrazine:??Negative Pooling:??Negative??- leakage of urine noted with valsalva, none through the cervix?? OB Intake and Output Intake and Output Results?? This visit (24 hour periods starting at 07:00 EST)? 05/02/23 *?? 05/01/23?? 04/30/23?? Total Summary?Intake mL?? --?? 700?? 4,075?Output mL?? --?? 2,200?? 2,425?Fluid Balance ?? --?? -1,500?? 1,650?? Intake (2)?Lactated Ringers Injection 1000 mL mL?? --?? --?? 3,275?Oral Fluids mL?? --?? 700?? 800?Total?? --?? 700?? 4,075?? Output (1)?Urine Voided mL?? --?? 2,200?? 2,425?Total?? --?? 2,200?? 2,425?? Counts (2)?Oral Fluids mL?? --?? 700?? 800?Urine Voided mL?? --?? 2,200?? 2,425? * This column has not completed the indicated time period.?? Assessment/Plan Assessment:??Patient is a 33-year-old at 31w6d admitted with CVA tenderness and reports of right flank pain in the setting of a history of a renal stone s/p stenting approximately 7 years ago. She remained afebrile during her admission without dysuria or leukocytosis.??Retroperitoneal ultrasound obtained revealed a??right-sided hydronephrosis and a low-dose CT revealed??a 0.8cm x 0.5cm calcification in the right pelvis/distal ureter, prompting a urology consult. She was maintained??on IV fluids and Flomax nightly during her hospital stay.??She continued to require pain management withOxycodone/IV Dilaudid and subsequently proceeded to undergo a??ureteroscopy, laser lithotripsy and stent insertion on , which was uncomplicated. Her pain has significantly improved post-operatively.??SROM check is negative this morning, stress incontinence secondary to recent ureteral stentingand string placement. Will monitor patient's contractions today and re-assess this afternoon. Patient will have her scheduled BPP/Growth today. ?? H/O Kidney stones (Z87.442):? - Strain urine - Tylenol for pain - Low-dose CT: 0.8cm x 0.5cm calcification, possible obstructing stone - s/p ureteroscopy, laser lithotripsy and stent insertion on - Plan for stent removal in PVU on Friday - Possible discharge this PM ?? 31 weeks gestation of (Z3A.31):? - NST BID - Cervix closed, patient not in labor - GBS unknown, would collect if suspicion for labor - Continue PNV daily ?? Anemia (D64.9):? - H/H 9.3/28.3 - Taking iron QD ?? 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 ( ) Valtrex prophylaxis at 36 weeks ?? Andra thyroiditis (E06.3):? - Levothyroxine 137 mcg QD ?? OB History History?(3,0,0,3)? # 1 ?Baby 1 ?Outcome Date:??08/09/2007?Outcome or Result:??Vaginal ?Gest Age:??Fullterm ? Outcome:??Live ? Sex:??Male?Wt:?2920 g ?Hospital:??[facility] ?? # 2 ?Baby 1 ?Outcome Date:??02/18/2014?Outcome or Result:??Vaginal ?Gest Age:??Fullterm ? Outcome:??Live ? Sex:??Female?Wt:?3799 g ?Hospital:??[facility] ?? # 3 ?Baby 1 ?Outcome Date:??09/16/2016?Outcome or Result:??Vaginal ?Gest Age:??Fullterm ? Outcome:??Live ? Sex:??Female?Wt:?3714 g ?Hospital:??[facility] Active Problem List Active Problem List Abnormal laboratory test: (Medical) Anemia in : (Medical) Chronic low back pain: (Medical) Environmental and seasonal allergies: (Medical) FHx: genetic disorder: (Medical) Genital HSV: (Medical) H/O ??SARAHY: (Medical) H/O Abnormal Pap smear of cervix: (Medical) H/O Constipation: (Medical) H/O Kidney stones: (Medical) H/O Left lower quadrant abdominal pain: (Medical) H/O Migraine: (Medical) H/O Varicella as a child: (Medical) Andra thyroiditis: (Medical) : (Obstetric) (09/21/22) Severe obesity (BMI 35.0-39.9) with comorbidity: (Medical) Medications Medications (10) Active SCHEDULED: (5) Acetaminophen 325 mg Tablet (Tylenol 325 mg oral tablet) ??650 mg, By Mouth, Every 6 hours Aspirin 81 mg EC Tablet (aspirin 81 mg oral delayed release tablet) ??162 mg, By Mouth, Daily Ferrous Sulfate 325 mg EC Tablet (ferrous sulfate 325 mg oral enteric coated tablet) ??325 mg, By Mouth, Daily at bedtime Levothyroxine 137 mcg Tablet (levothyroxine 0.137 mg oral tablet) ??137 mcg, By Mouth, Daily Multivitamin Tablet ??1 tablet, By Mouth, Daily CONTINUOUS: (2) Lactated Ringers (1000 mL) Cont IV 1,000 mL (Lactated Ringers 1,000 mL) ??1,000 mL, IV Infusion, 1,000 mL/hr Lactated Ringers (1000 mL) Cont IV 1000 mL (Lactated Ringers 1000 mL) ??1,000 mL, IV Infusion, 150 mL/hr PRN: (3) Calcium Carbonate 500 mg (Calcium 200 mg) Chewable Tablet (Tums 500 mg Tablet) ??1,000 mg 2 tablet,Chew, 3 times a day Ondansetron 2mg/mL Inj (2mL Vial) (Ondansetron Inj) ??4 mg, IV Push, Every 8 hours OxyCODONE 5 mg IR Tablet (oxyCODONE 5 mg oral tablet) ??5 mg, By Mouth, Every 3 hours Allergies No Known Medication Allergies * Daquan Maria RN: PERFORM, SIGN, VERIFY Event Display: Progress Note Hospital Authored Date: Patient: HERLINDA SUAREZ Age: 33 years Sex: Female : 1990 Associated Diagnoses: None Author: Daquan Maria RN Patient has had an uneventful evening thus far. VSS. Pain has been minimum and controlled with Tylenol. String from stint is securely taped to leg. FOB stayed for a portion of the evening with patient. Patient eating and drinking Consult note * Sandra KLEIN, Genaro Holland: PERFORM Event Display: Consultation Note Authored Date: [id number] Patient: ??HERLINDA SUAREZ ? Age:??33 Years?Sex:??Female?:??1990?? Chief Complaint/Reason for Consultation RT Nephrolithiasis History of Present Illness LOS: 4 PCP: Huber Salinas MD Consulting Physician: Isrrael Will MD Attending Physician: Lorenzo Nguyen MD Reason For Consult: RT Nephrolithiasis ?? This is a 33-year-old??female??at 31 weeks gestation,??with a history of??kidney stones requiring operative intervention??at [facility]??seen in consult for right nephrolithiasis.?? She has had progressively worsening??pain??since her admission 4 days ago.?? She has some nausea, though is denied any vomiting, fevers, dysuria, hematuria.??No recent laboratory data, though on 04/27 her urine was negative for UTI.?? Her vital signs are stable.?? She is requiring oxycodone and Dilaudid for pain medications.?? She has been trialed on Flomax, and fluids and has not passed her kidney stone.?? A low-dose CT on 04/28 was positive for mild right-sided hydronephrosis secondary to an 8 mm x 5 mm elongated calcification in the right pelvis/distal ureter. Review of Systems 10 point review of systems negative unless mentioned above. Objective Measurements?? Height: 155 cm (04/29/23) Weight: 107.1 kg (04/27/23) Dry Weight: 107.1 kg (04/27/23) Body Mass Index:??44.58 kg/m2??Critical (04/27/23) ? Vital Signs?? Temperature: 97.9 DegF (04/29/23 10:31:00) Temperature Route: Oral (04/29/23 10:31:00) Pulse Rate: 82 bpm (04/29/23 10:31:00) Respiratory Rate: 24 br/min (04/29/23 12:51:00) Systolic Blood Pressure: 102 mm Hg (04/29/23 10:31:00) Diastolic Blood Pressure:??47 mm Hg??Low (04/29/23 10:31:00) Blood pressure sites: Arm, right (04/29/23 05:04:00) Mean Arterial Pressure: 65 mm Hg (04/29/23 10:31:00) Pulse Pressure: 55 mm Hg (04/29/23 10:31:00) Oxygen Saturation: 98 % (04/29/23 10:31:00) Mode of Delivery (Oxygen): Room air (04/29/23 05:04:00) ? Pain Scores Pain relief acceptable: Yes (09:42) ? Intake/Output? 04/27 18:30 04/29 07:00 04/28 07:00 04/27 07:00 04/26 07:00 ?? 04/29 13:24 04/29 13:24 04/29 06:59 04/28 06:59 04/27 06:59 Intake ? 3000 ?0 ? 1500 ? 1500 ?0 Output ? 3450 ?300 ? 1750 ? 1400 ?0 Net Total ? -450 ? -300 ? -250 ?100 ?0 ? Physical Exam Constitutional: Alert, in no distress. Mental Status: Oriented to person, place and time. Respiratory: Equal and unlabored respiratory effort. Gastrointestinal: Abdomen soft, non-tender, non-distended. Normal bowel sounds. No pulsatile mass. No hepatosplenomegaly. Genitourinary:??Right CVA tenderness. Assessment/Plan Right nephrolithiasis (N20.0):??This is a 33-year-old??female??at 31 weeks gestation,??with a history of??kidney stones requiring operative intervention??at [facility]??seen in consult for right nephrolithiasis.??CT scan??shows??a??8 x 5 mm elongated calcification in the right pelvis/distal ureter. She has been completely hemodynamically stable throughout her admission, she has no leukocytosis, no??JAYLEN, her urine is negative for infection.??She continues to have pain and discomfort and is requiring more Dilaudid/oxycodone.??In discussing with the patient, at this point??we will continue to trial??medical expulsion therapy with Flomax??0.4 mg daily,??IV fluids??for??trial of passage.??She should be n.p.o. after midnight??to discuss??options??which would include??cystoscopy/stent versus??PCN??versus stone removal under anesthesia??versus conservative management.??Urology will continue to follow this patient??for definitive planning??tomorrow. ?? This patient was discussed with attending physician Dr. Nguyen. Histories Allergies Allergies ?(Active and Proposed Allergies Only) No Known Medication Allergies? (Severity: Unknown severity, Onset: Unknown) ? Past Medical History/Problem List Active Problems??(15) Abnormal laboratory test Anemia in Chronic low back pain Environmental and seasonal allergies FHx: genetic disorder Genital HSV H/O ??SARAHY H/O Abnormal Pap smear of cervix H/O Constipation H/O Kidney stones H/O Left lower quadrant abdominal pain H/O Migraine H/O Varicella as a child Andra thyroiditis Severe obesity (BMI 35.0-39.9) with comorbidity ? Past Surgical History Stent ? Social History Alcohol Details:??Use: Never. Details:??Use: Never. Employment/School Details:??Status: Employed. ??Other: [employer]. Exercise Details:??Self assessment: Fair condition. ??Other: Walking. Home/Environment Details:??Living situation: Home/Independent. ??Lives with: Children. Nutrition/Health Details:??Diet: Regular. Sexual Details:??Sexually involved in last 6 months: Yes. ??Gender identity: Identifies as female. ??Self described orientation: Straight or heterosexual. ??Preferred pronoun: She/her. Substance Abuse Details:??Use: Never. Details:??Use: Never. Tobacco Details:??Use: Never (less than 100 in lifetime). Details:??Never smoker Electronic Cigarette/Vaping Details:??Electronic Cigarette Use: Never. Details:??Electronic Cigarette Use: Never. ? Family History Mother: Diabetes mellitus; Heart attack ? Medications Home Medications Aspirin (aspirin 81 mg oral delayed release tablet)?See Instructions?2 tablet By Mouth Daily at bedtime Cetirizine (ZyrTEC 10 mg oral tablet)?1?tab(s)?10?Milligram?By Mouth?Daily?as needed?for allergy symptoms Ferrous Sulfate (ferrous sulfate 325 mg oral enteric coated tablet)?325?Milligram?1?tablet?By Mouth?Daily Levothyroxine (levothyroxine 137 mcg (0.137 mg) oral capsule)?1?capsule?137?Microgram?By Mouth?Daily Multivitamin, ( Multivitamins with Vitamin B Complex, Vitamin C, Minerals and L-Methylfolate oral capsule)?1?capsule?By Mouth?Daily?for 90?Days Pyridoxine (pyridoxine 25 mg oral tablet)?1?tab(s)?25?Milligram?By Mouth?3 times a day?as needed?Nausea & Vomiting Ursodiol (ursodiol 300 mg oral capsule)?300?Milligram?1?capsule?By Mouth?3 times a day?for 90?doses/times ? Results Recent Labs No labs resulted between 04/28/2023 00:00 and 04/29/2023 13:24? Imaging(s) ?US Retroperitoneum Comp ?? 04/27/2023 14:14??by Zach RICH, Brandon ?Right hydronephrosis with 2 cm transverse pelvic diameter, top normal for stage of gestation. No stone identified. ?CT Abdomen and Pelvis W/O Contrast ?? 04/28/2023 20:36??by Johnie RICH, Augusto ?Mild right-sided hydronephrosis. 0.8 x 0.5 cm elongated calcification in the right pelvis in the region of the right distal ureter. Overall appearance favors an obstructing ureteral calculus, although given low- dose technique and inability to clearly visualize the right ureter, it is dif ficult to exclude a phlebolith having this appearance. Of note, no phleboliths are seen elsewhere in the pelvis. ? 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 BIOPHYSICAL EVALUATION: Amniotic F.V: Within normal limits F. Tone: Observed F. Movement: Observed Score: 10/08 F. Breathing: Observed BIOMETRY: BPD: 86.1 mm G.Age: 34w 5d 98 % HC: 300.2 mm G.Age: 33w 2d 52 % AC: 281.4 mm G.Age: 32w 1d 58 % FL: 62 mm G.Age: 32w 1d 44 % LV: 3.3 mm CI: 81.91 % 70 - 86 FL/HC: 20.7 % 19.1 - 21.3 HC/AC: 1.07 0.96 - 1.17 FL/BPD: 72.0 % 71 - 87 FL/AC: 22.0 % 20 - 24 Est. FW: 1985 gm 4 lb 6 oz 60 % OB HISTORY: : 4 Term: 3 Livin GESTATIONAL AGE: LMP: 31w 6d Date: 09/21/22 JIHAN: 06/28/23 /S Today: 33w 1d JIHAN: 06/19/23 Best: 31w 6d Det. By: LMP (09/21/22) JIHAN: 06/28/23 CERVIX UTERUS ADNEXA: Cervix Not well seen COMMENTS: The estimated weight is within normal limits. BPP=8/8 Marylou Marcos MD Electronically Signed Final Report 05/02/2023 12:38 pm * Event Display: [facility] Biophysical Profile Authored Date: Please click on pdf link to open report * Event Display: [facility] Follow up Growth * Event Display: PDC Follow up Growth Authored Date: [id number] OBSTETRICS REPORT PATIENT INFO: CMRN: [id number] BMRN: [id number] : [birth year] (33 yrs)(F) Name: HERLINDA SUAREZ Visit Date: 05/02/2023 11:18 am PERFORMED BY: Performed By: Samira Sweeney RDMS Attending: Marylou Marcos MD Referred By: Isrrael Brenner MD-inpatient [facility] INDICATIONS: Calculus of kidney N20.0 Anemia complicating , unspecified O99.019 trimester Herpesviral infection of urogenital system, 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 BIOPHYSICAL EVALUATION: Amniotic F.V: Within normal limits F. Tone: Observed F. Movement: Observed Score: 8/8 F. Breathing: Observed BIOMETRY: BPD: 86.1 mm G.Age: 34w 5d 98 % HC: 300.2 mm G.Age: 33w 2d 52 % AC: 281.4 mm G.Age: 32w 1d 58 % FL: 62 mm G.Age: 32w 1d 44 % LV: 3.3 mm CI: 81.91 % 70 - 86 FL/HC: 20.7 % 19.1 - 21.3 HC/AC: 1.07 0.96 - 1.17 FL/BPD: 72.0 % 71 - 87 FL/AC: 22.0 % 20 - 24 Est. FW: 1986 gm 4 lb 6 oz 60 % OB HISTORY: : 4 Term: 3 Livin GESTATIONAL AGE: LMP: 31w 6d Date: 09/21/22 JIHAN: 06/28/23 U/S Today: 33w 1d JIHAN: 06/19/23 Best: 31w 6d Det. By: LMP (09/21/22) JIHAN: 06/28/23 CERVIX UTERUS ADNEXA: Cervix Not well seen COMMENTS: The estimated weight is within normal limits. BPP=8/8 Marylou Marcos MD Electronically Signed Final Report 05/02/2023 12:38 pm * Event Display: PDC Follow up Growth Authored Date: Please click on pdf link to open report Note * Sue Pop RN: PERFORM Event Display: Discharge/Transfer Note Hospital Authored Date: [id number] Nursing Discharge Note Entered On: 05/02/2023 15:15 EST Performed On: 05/02/2023 15:15 EST by Sue Pop RN Nursing Discharge Note 2 Discharge Time : 05/02/2023 15:15 EST Discharge Level of Care at Discharge : Home/Skilled Nursing/Foster Care Airplane Captain Utilized : No AMA Form Signed : No Patient Left Unit Via : Ambulatory Patient Accompanied Off Unit with : Significant other DC Instructions Provided & Signed by Pt : Yes Patient Understands D/C Instructions : Yes Verbalized Understanding of D/C Plan By : Patient Patient Instructions Discharge Signed : Yes Did Pt have Specialty Bed or Wound Vac : No Sue Pop RN - 05/02/2023 15:15 EST * Isrrael Will MD: PERFORM Event Display: Discharge/Transfer Note Hospital Authored Date: [id number] Patient: ??HERLINDA SUAREZ ? Age:??33 Years?Sex:??Female?:??1990?? Admit Date Admission Date: 04/27/2023 Discharge Date 05/02/2023 OB Reason for Admission OB Reason for Admission Reason for admission: Other: Kidney stone OBN Hospital Course Patient is a 33-year-old at 31w1d admitted with CVA tenderness and reports of right flank pain in the setting of a history of a renal stone s/p stenting approximately 7 years ago. She remained afebrile during her admission without dysuria or leukocytosis.??Retroperitoneal ultrasound obtained revealed a??right-sided hydronephrosis and a low-dose CT revealed??a 0.8cm x 0.5cm calcification in the right pelvis/distal ureter, prompting a urology consult. She was maintained??on IV fluids and Flomax nightly during her hospital stay.??She continued to require pain management with Oxycodone/IVDilaudid and subsequently proceeded to undergo a??ureteroscopy, laser lithotripsy and stent insertion on , which was uncomplicated. Her pain has significantly improved post-operatively and her intermittent contractions during her hospitalization have resolved. She developed a degree of stress incontinence after her procedure and a SROM check was performed and negative. Urology curbsided and confirm that this is likely in the setting of a stent in . Patient updated and is planned for a follow-up appointment at [facility] on Friday for stent removal. Return precautions reviewed. All questions answered.?? Objective/Physical Exam on Day of Discharge Vitals & Measurements T:??98.1?F?? HR:??62??(Monitored)?? RR:??18?? BP:??109/50?? SpO2:??100%?? HT:??155??cm?? WT:??107.1??kg?? BMI:??44.58?? Constitutional:??Normal affect, uncomfortable, well-developed. Respirations:??Normal exam, not labored.? Cardiovascular:??Skin warm and well-perfused. Abdomen/GI:??Soft, non-tender, and non-distended. Extremities:??No clubbing, cyanosis or significant edema present.?? Skin:??No rash or jaundice. Normal for ethnicity. Neurological/Psychiatric:??Appearance appropriate, mood and affect stable. Assessment/Plan/Discharge Diagnosis Assessment:??Patient is a 33-year-old at 31w6d admitted with??a 0.8cm x 0.5cm calcificationin the right pelvis/distal ureter and is s/p ureteroscopy, laser lithotripsy and stent insertion on, which was uncomplicated. Her pain has significantly improved post-operatively and she is clinically stable for discharge with routine care and follow-up at [facility] for stent removal on Friday. The estimated weight is within normal limits, BPP=8/8. Return precautions reviewed with patient. ?? Kidney stone (N20.0):? - s/p ureteroscopy, laser lithotripsy and stent insertion on - Plan for stent removal in [facility] on Friday ?? 31 weeks gestation of (Z3A.31):? - Cervix closed, patient not in labor - Continue PNV daily - Continue care as scheduled ?? Anemia (D64.9):? - H/H 9.3/28.3 - Taking iron QD ?? 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 - ( ) Valtrex prophylaxis at 36 weeks ?? Andra thyroiditis (E06.3):? - Levothyroxine 137 mcg QD ?? Seen and discussed with Dr. Coulter, attending. Future Appointments Friday 8:40 AM EDT ?? With: Kalpana Alfaro CNM Where: [facility] - [address] [address]- Status: Pending Friday 8:40 AM EDT ?? With: Kalpana Alfaro CNM Where: [place] [address]- Status: Pending Friday 8:40 AM EDT ?? With: Jessica Aguayo MD Where: [facility] - [address] [address]- Status: Pending Friday 10:00 AM EDT ?? With: Josselyn Whitlock MD Where: [facility] - [address] [address]- Status: Pending Friday 10:00 AM EDT ?? With: Michelle Garrido Where: [address] [address]- Status: Pending Friday 10:00 AM EDT ?? With: Michelle Garrido Where: [address] [address]- Status: Pending Friday 10:00 AM EDT ?? With: Michelle Garrido Where: [address] [address]- Status: Pending Delivery Summary Delivery Summary Maternal Information ??Delivery Information ?Gestational Age at Delivery: ??31W 6D ? Baby A ??Labor Information ? monitoring: ??External monitor ? Discharge Medications ???Aspirin (aspirin 81 mg oral delayed release tablet)???Cetirizine (ZyrTEC 10 mg oral tablet)???Ferrous Sulfate (ferrous sulfate 325 mg oral enteric coated tablet)???Levothyroxine (levothyroxine 137mcg (0.137 mg) oral capsule)???Multivitamin, ( Multivitamins with Vitamin B Complex , Vitamin C, Minerals and L-Methylfolate oral capsule)???Pyridoxine (pyridoxine 25 mg oral tablet)???Ursodiol (ursodiol 300 mg oral capsule) Immunizations during Hospitalization Vaccine Date Status tetanus/diphtheria/pertussis, acel(Tdap) 04/18/2023 Given influenza virus vaccine, inactivated 12/27/2022 Given influenza virus vaccine, inactivated 03/30/2019 Given influenza virus vaccine, inactivated 04/05/2015 Given tetanus/diphtheria/pertussis, acel(Tdap) 07/08/2014 Given Patient Education Titles [employer] Patient Education - Preventing Kidney Stones?? [employer] Patient Education - Kidney Stones?? [employer] Patient Education - Recognizing Labor?? [employer] Patient Education - Kick Counts?? [employer] Patient Education - How to Know You Are in Labor?? Patient Instructions Please take Tylenol as needed for pain. Please present to hospital should you develop severe pain not controlled by your pain meds.? Please present to hospital with any new or worsening symptoms including:?? -Regular contractions -Loss of fluid?? -Vaginal bleeding -Decreased movement -Fevers or chills?? -Difficulty or pain with voiding? Please present to all your follow-up appointments as scheduled. ?? Do not hesitate to reach out with any questions or concerns.? Thank you for allowing us to be a part of your care team. * Marylin RICH, Jimmie Shaffer: PERFORM Event Display: Discharge/Transfer Note Hospital Authored Date: [id number] I saw the above patient and reviewed the findings and plan with the resident. Agree with assessmentand plan. K Marylin RICH * Donn CHRISTIE, Sue: PERFORM Event Display: Patient Education/Instruction Authored Date: [id number] Inpatient Adult Discharge Instructions. [address] [address] Name: HERLINDA SUAREZ : 1990?? Visit: 04/27/2023 18:30?? Current Date: 05/02/2023 13:48 ?? Account: [id number]?? Inpatient Adult Discharge Instructions We would like [...] and their families. Surveys are administered by [employer] ?? If further treatment with your primary care physician or another doctor is recommended, it is important for you to keep the appointment. Call your primary care physician or return to the Emergency Department immediately if your condition worsens, fails to improve, or new symptoms develop. If you need to find a doctor, you can call [facility] Link for a referral at [phone] or toll free at [phone] ([phone]) or log in to [email or web address].. ?? [facility], in keeping with [facility] guidance, no longer requires face masks for [...] a health care mayela of your choosing. [email or web address] is a website that allows you to securely view your medical information including your hospital discharge summary, office visit summaries, medications and follow-up visits. You can also request appointments, renew medications, and request access to your medical information using a health care mayela of your choosing, or just ask a question. You can enroll at [email or web address] or register during your next office visit. You have been discharged from [facility], Patient Care Unit: [facility]??. If you have any questions regarding these instructions, including results of studies pending, afteryou leave, please call us and we will be happy to assist you 23/09. [facility] Your Care Team Attending Physician Shani You DO?? Consulting Providers Shani You DO?? Discharging Providers Isrrael Will MD Your Diagnosis H/O Kidney stones 31 weeks gestation of Anemia Anemia in FHx: genetic disorder Genital HSV Andra thyroiditis Kidney stone Right nephrolithiasis Severe obesity (BMI 35.0-39.9) with comorbidity Tests Performed Below is a partial list of the tests performed during your hospitalization. You may have had other tests and procedures not included in this list. Please discuss all test results with your provider. CBC w/ Differential Complete Urinalysis COVID-19 (NOVEL CORONAVIRUS), PCR Type and Screen CT Abdomen and Pelvis W/O Contrast US Retroperitoneum Comp XR C-Arm < 1 Hour XR Urethrocystography Retrograde No tests performed during this visit.?? Primary Care Provider Brad RICH, Huber Forrester? Advance Directive Health Care Proxy on File No Patient refuses to discuss Patient has a Designated Caregiver: No Discharge Vitals Temperature: 98.1 DegF Height: 155 cm Pulse Rate: 68 bpm Weight: 107.1 kg Respiratory Rate: 18 br/min Body Mass Index:??44.58 kg/m2??Critical Systolic Blood Pressure: 109 mm Hg Body surface area: 2.15 Diastolic Blood Pressure:??50 mm Hg??Low ?? Oxygen Saturation: 100 % ?? Studies Pending All studies ordered during this hospital stay have been completed unless listed below. Please discuss all pending results with your provider listed above in these instructions. ?? No incomplete studies found?? What to do next Instructions From Your Doctor Please take Tylenol as needed for pain. Please present to hospital should you develop severe pain not controlled by your pain meds.? Please present to hospital with any new or worsening symptoms including:?? -Regular contractions -Loss of fluid?? -Vaginal bleeding -Decreased movement -Fevers or chills?? -Difficulty or pain with voiding? Please present to all your follow-up appointments as scheduled. ?? Do not hesitate to reach out with any questions or concerns.? Thank you for allowing us to be a part of your care team. ?? Orders?? after seen by Attending MD, ??05/02/23 13:31:00 EST?? Scheduled Follow-Up Appointments Friday 8:40 AM EDT ?? With: Kalpana Alfaro CNM Where: [facility] - [address] [address]- Status: Pending Friday 8:40 AM EDT ?? With: Kalpana Alfaro CNM Where: [place] [address]- Status: Pending Friday 8:40 AM EDT ?? With: Jessica Aguayo MD Where: [facility] - [address] [address]- Status: Pending Friday 10:00 AM EDT ?? With: Josselyn Whitlock MD Where: [address] [address]- Status: Pending Friday 10:00 AM EDT ?? With: Michelle Garrido Where: [address] [address]- Status: Pending Friday 10:00 AM EDT ?? With: Michelle Garrido Where: [address] [address]- Status: Pending Friday 10:00 AM EDT ?? With: Michelle Garrido Where: [address] [address]- Status: Pending Discharge Medications HERLINDA SUAREZ :1990 Visit Date:04/27/2023 Medications: Please continue your medications until treatment is completed or stopped by your provider. Medications not listed below should be discontinued. Discuss any questions related to medications with your provider. What How Much When Why Instructions Next Dose Unchanged Aspirin (aspirin 81 mg oral delayed releasetablet) See instructions Severe obesity (BMI 35.0-39.9) with comorbidity 2 tablet By Mouth Daily at bedtime ?? Unchanged Cetirizine (ZyrTEC 10 mg oral tablet) 1 tab(s) Oral Daily as needed for for allergy symptoms Unchanged Ferrous Sulfate (ferrous sulfate 325 mg oral enteric coated tablet) 1 tab(s) Oral Daily Anemia in Unchanged Levothyroxine (levothyroxine 137 mcg (0.137 mg) oral capsule) 1 capsule Oral Daily Unchanged Multivitamin, ( Multivitamins with Vitamin B Complex, Vitamin C, Minerals and L-Methylfolate oral capsule) 1 capsule Oral Daily Duration: 90 Days Unchanged Pyridoxine (pyridoxine 25 mg oral tablet) 1 tab(s) Oral 3 times a day as needed for Nausea & Vomiting Unchanged Ursodiol (ursodiol 300 mg oral capsule) 1 capsule Oral 3 times a day Itching Duration: 90 doses/times Prescription Given During Visit No new medications prescribed at time of discharge.?? Laboratory Results Below is a partial list of the most recent Laboratory test results done prior to this discharge. You may have had other tests and procedures not included in this list. Please discuss all test resultswith your provider. CBC w/ Differential (05/01/2023) ???WBC - 6.8 k/mm3???RBC - 3.30 m/mm3???Hgb - 9.3 Gm/dL???Hct - 28.3 %???MCV - 85.8 femtoliters???MCH - 28.2 pg???MCHC - 32.9 g/dL???Platelet Count - 162 k/mm3???RDW-SD - 42.1 femtoliters???MPV - 11.2 femtoliters???Nucleated RBC (Automated) - 0.0 #/100 WBC'S???Abs. NRBC - 0.0 k/mm3???Abs. Neut - 4.5 k/mm3???Abs. Lymph - 1.4 k/mm3???Abs. [place] - 0.8 k/mm3???Abs. Eo - 0.2 k/mm3???Abs. Baso - 0.0 k/mm3???Neut % - 65.6 %???Lymph % - 20.2 %???[place] % - 11.0 %???Eos % - 2.8 %???Baso % - 0.1 %???Imm Gran - 0.3 %???Abs. Imm Gran - 0.0 k/mm3 Complete Urinalysis (04/27/2023) ???Appear/Color, Urine - YELLOW???Specific [place], Urine - 1.026???pH, Urine - 6.0???Albumin, Urine - 1+???Glucose, Urine - NEGATIVE???Ketones, Urine - NEGATIVE???Bilirubin, Urine - NEGATIVE???Hemoglobin, Urine - 2+???Nitrite, Urine - NEGATIVE???Leukocyte, Urine - 1+???Urobilinogen - NORMAL???WBC's, Urine - 7 /HPF???RBC's, Urine - 4 /HPF???Bacteria - SLIGHT???Squamous Epith - 20 /HPF???Mucus - SLIGHT COVID-19 (NOVEL CORONAVIRUS), PCR (04/27/2023) ???COVID-19 by RT-PCR - NEGATIVE Type and Screen (05/01/2023) ???Blood Type - O Positive???Antibody Screen - Negative Allergies (NKA means No Known Allergies) No Known Medication Allergies Problems Active Problems??(16) Abnormal laboratory test?? Anemia in ?? Chronic low back pain?? Environmental and seasonal allergies?? FHx: genetic disorder?? Genital HSV?? H/O ??SARAHY?? H/O Abnormal Pap smear of cervix?? H/O Constipation?? H/O Kidney stones?? H/O Left lower quadrant abdominal pain?? H/O Migraine?? H/O Varicella as a child?? Andra thyroiditis? Severe obesity (BMI 35.0-39.9) with comorbidity?? Education Materials Below is the list of Educational Leaflet Providered with your Discharge Instructions. Web[employer] Ign[employer] Patient Education - Preventing Kidney Stones?? Web[employer] Ignite Patient Education - Kidney Stones?? [employer] Patient Education - Recognizing Labor?? [employer] Patient Education - Kick Counts?? [employer] Patient Education - How to Know You Are in Labor?? Valuables and Belongings I fully understand and agree that [facility] accepts no responsibility for all my personal [...] patient Date for Pt to Sign Valuables/Belongings: 05/01/23 10:11:00 ?? Valuables & Belongings ?? Clothes Electronic devices Jewelry Monetary Items Personal devices Miscellaneous Medications (Valuables) Valuables at Bedside Shoes Cell phone Earrings, Necklace ? Valuables Sent Home ? Valuables Sent to Security ? Other Discharge Information ? Pulmonary Rehab Status?? [...] are strongly encouraged to quit. Please call [facility] [place] Link at [phone] or [phone] ([phone]) or log in to [email or web address] for referrals to smoking cessation programs. ?? 793 Suicide & Crisis Lifeline is available 23/09 if you or someone you know needs to find a reason to keep living. By calling 293 you'll be connected to a skilled, trained counselor at a crisis center in your area. INPATIENT DISCHARGE INSTRUCTIONS SIGNATURE PAGE DANIELA HERLINDA Location:[facility] Registration Date and Time:04/27/2023 18:30 EST Primary Care Physician: Huber Salinas MD [facility], Attending Physician: Shani You DO, I HERLINDA SUAREZ, have received the above patient education materials/instructions and have verbalized understanding. If ambulance or transport services are being used I further acknowledge being given a choice of service. ?? If you need to contact me, please call me at this number: . Patient/Eligibility Consultant Name: Patient/Eligibility Consultant Signature: Relationship to Patient: Witness Name/Signature: Date: * Sue Pop RN: PERFORM Event Display: Patient Education Leaflets Authored Date: [id number] Preventing Kidney Stones ?? 67974 Preventing Kidney Stones If you???ve had a kidney stone, you may worry that you???ll have another. Removing or passing your stone doesn???t prevent future stones. But with your healthcare provider???s help, you can reduce your risk of forming new stones. Follow up with your healthcare provider to help find new stones. Depending on your medical condition, you may need to follow up every 3 to 12 months for the rest of yourlife. Drink lots of water Staying well-hydrated is the best way to reduce your risk of future stones. Drink 8??12-ounce glasses of water daily. Have 2 with each meal and 2 between meals. Keep track of your intake. Try keepinga pitcher of water nearby during the day and at night. Ask your healthcare provider about how much fluid you should have if you have kidney disease or kidney failure. ?? Take medicines if needed Medicines, including vitamins and minerals, may be prescribed for certain types of stones. You may want to write your doses and medicine times on a calendar. Some medicines decrease stone-forming chemicals in your blood. Others help prevent those chemicals from crystallizing in urine. Still others help keep a normal acid balance in your urine. ?? Follow your prescribed diet Your??healthcare provider??will tell you which foods contain the chemicals you should not have. Your??healthcare provider??may also suggest talking with a dietitian. They can help you plan meals you???ll enjoy that won't put you at risk for future stones. Bring your spouse, partner, or close friendwith you when you meet with the dietitian so you can have support for your diet changes. You may be told to limit certain foods, depending on which type of stones you???ve had. You should limit the amount of salt in your food to about 2 grams a day. This will help prevent most types of kidney stones.??Make sure you get an adequate amount of calcium in your diet. For calcium oxalate stones:?? Limit animal protein, such as meat, eggs, and fish.??Limit grapefruitjuice and alcohol.??Limit high-oxalate foods (such as cola, tea, chocolate, spinach, rhubarb, wheatbran, and peanuts). For uric acid stones: Limit high-purine foods, such as mushrooms, peas, beans, anchovies, meat, poultry, shellfish, and organ meats. These foods increase uric acid production. For cystine stones: Limit high-methionine foods (fish is the most common,??but include eggs and meats, too).??These foods increase production of cystine. ?? Last Reviewed Date: 2021 ?? [id number] [employer]. All rights reserved. This information is not intended as a substitute for professional medical care. Always follow your healthcare professional's instructions. ?? * Sue Pop RN: PERFORM Event Display: Patient Education Leaflets Authored Date: [id number] Kidney Stones ?? Kidney Stones - Video Kidney stones are a common problem, affecting about 12% of men and 5% of women. Stones are typically caused by an imbalance in the urinary system: too little water, too much oxalate, or too much calcium. In this video, you'll find out how the stones develop and what you can do to prevent them. To view the video go to this web address: [email or web address] Or, scan this QR code with your smart phone Last Reviewed Date: 2019 ?? 3710-9114 [employer]. All rights reserved. This information is not intended as a substitute for professional medical care. Always follow your healthcare professional's instructions. ?? * Sue Pop RN: PERFORM Event Display: Patient Education Leaflets Authored Date: [id number] Recognizing Labor ?? 75206 Recognizing Labor The beginning of labor is the beginning of . You???ll start to feel strong contractions. That???s when the muscles of your uterus tighten up to help push your baby out during . Yes, labor has likely started?? Signs of labor include: ??? Your contractions are getting stronger and more painful instead of weaker. You???ll likely feel them throughout your whole uterus. ??? Your contractions are regular. This means that you feel them about every 5 to 10 minutes. And they are getting closer together. ??? You have pink- colored or blood-streaked fluid from your vagina. ??? You feel that the baby has dropped lower in your pelvis? Your water breaks. It may be a gush or a slow trickle of clear fluid from your vagina. ?? No, it???s likely not real labor?? Signs of false labor include: ??? Your contractions aren???t regular or strong. ??? You feel the contractions only in your lower uterus. ??? Your contractions go away when you walk or change position. ??? Your contractions go away after drinking fluids. ?? When to call your healthcare provider Call your healthcare provider or clinic right away if you notice any of these signs: ??? Fluid fromyour vagina, with or without contractions. ??? Bleeding heavy enough that you need a sanitary pad. ??? You don???t feel your baby moving as much as before. ?? Note Contractions are timed by both of these measures: ??? The length of each contraction from its startto its finish. ??? How far apart the contractions are ???the time between the start of one contraction and the start of the next contraction. ?? Last Reviewed Date: 2022 ?? [id number] [employer]. All rights reserved. This information is not intended as a substitute for professional medical care. Always follow your healthcare professional's instructions. ?? Patient Care team information Care Team Personnel Name: Huber Salinas MD Position: S Resident Member Role: PCP Address: Address: [address] [place] [address] [place] [address]- Name: Chantal Srivastava RN Position: [facility] OB RN Member Role: OB RN Care Team Related Persons Name: NEEMA MCGHEE Address: home [address] [place] [id number]
--- OUTSIDE RECORDS SUMMARY | 2023-09-25 13:45 | XMS_ITS | Continuity of Care Document ---
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 Marine Engineer Name Role Phone Huber Salinas MD [facility]ician Encounter [facility] [place] Date(s): 10/25/22 - 10/25/[address] [address]- Discharge Disposition: A-D/C Home Attending Physician: Jimmie Coulter MD Admitting Physician: Jimmie Coulter MD Referring Physician: Jimmie Coulter MD Allergies, Adverse Reactions, Alerts No Known Medication Allergies Immunizations Given and Recorded Vaccine Date Status Refusal Reason influenza virus vaccine, inactivated 03/30/19 Give n influenza virus vaccine, inactivated 04/05/15 Give n tetanus/diphtheria/pertussis, acel(Tdap) 07/08/14 Given Medications levothyroxine 0.1 mg oral tablet 1 tablet, By Mouth, Daily, for 90 days, # 90 tablet, 4 Refills, Physician Stop 02/16/23 11:19:00 EST, 11/23/21 11:19:00 EDT, [facility] #[id number], 156.6, cm, 11/23/21 11:09:00 EDT, Height Start Date: 11/23/21 Stop Date: 02/16/23 Status: Ordered Multivitamins with Vitamin B Complex, Vitamin C, Minerals and L- Methylfolate oral capsule 1 capsule, By Mouth, Daily, # 90 capsule, 5 Refills, Maintenance, 09/11/22 17:02:00 EDT, Capsule, [facility] #[id number], Partial fill upon patient request if the prescription is for a schedule II opioid drug., 1 capsule By Mouth Daily,x90 days,... Start Date: 09/11/22 Stop Date: 03/04/24 Status: Ordered ZyrTEC 10 mg oral tablet 1 tablet = 10 mg, By Mouth, Daily, PRN for allergy symptoms, # 30 tablet, 4 Refills, Maintenance, 09/06/22 11:37:00 EDT, Tablet, [facility] #[id number], Partial fill upon patient request if the [...] Exam Date Time Procedure Performing Provider Status 10/25/22 1:35 PM US Uterus Transvaginal Kaye Sauer; Auth (Verified) Notes: (US Uterus Transvaginal) Reason For Exam: RESULT: US Uterus Transvaginal US Transabd 1st Trimester Only, US Uterus Transvaginal Reason: ; Clinical Question(s): Ectopic COMPARISON: None available TECHNIQUE: Transabdominal and transvaginal ultrasound with grayscale and color Doppler analysis. FINDINGS: Last menstrual period (LMP): 09/21/2022. Gestational age (GA) by LMP: 4 weeks, 6 days. UTERUS AND GESTATIONAL STRUCTURES: Normal gestational sac containing a yolk sac is identified within the endometrial cavity. Mean sac diameter 0.8 cm, too small to calculate projected gestational age. Embryonic pole not visualized. Uterus: 8.9 x 5.3 x 5.9 cm, volume 146.4 cc. Retroverted. No masses. No abnormalities of the cervix. RIGHT OVARY: Size: 2.3 x 1.5 x 1.0 cm, volume 1.7 cc. Morphology: Normal echotexture. No pathologic cysts or mass. Normal color Doppler appearance. LEFT OVARY: Size: 2.5 x 2.1 x 2.4 cm, volume 6.6 cc. Morphology: Normal echotexture. No pathologic cysts or mass. Small corpus luteum. Normal color Doppler appearance. FREE FLUID: None. IMPRESSION: Intrauterine as evidenced by a gestational sac containing a yolk sac, mean sac diameter 0.8 cm. Embryonic pole not visualized, presumably normal given early stage of , but continued ultrasound follow-up recommended. Normal ovaries. WSN: [id number] Ordering Physician: Margarita Kerr Dictated By: Ruslan Barrientos MD Dictated Date/Time: 10/25/22 1:47 pm Reviewed By: Ruslan Barrientos MD Signed By: Ruslan Barrientos MD Signed Date/Time: 10/25/22 1:47 pm Transcribed By: TIMMY Transcribed Date/Time: 10/25/22 1:34 pm * Exam Date Time Procedure Performing Provider Status 10/25/22 1:35 PM US Transab d 1st Trimester Only Kaye Chavez; Auth (Verified) Notes: (US Transabd 1st Trimester Only) Reason For Exam: RESULT: US Transabd 1st Trimester Only US Transabd 1st Trimester Only, US Uterus Transvaginal Reason: ; Clinical Question(s): Ectopic COMPARISON: None available TECHNIQUE: Transabdominal and transvaginal ultrasound with grayscale and color Doppler analysis. FINDINGS: Last menstrual period (LMP): 09/21/2022. Gestational age (GA) by LMP: 4 weeks, 6 days. UTERUS AND GESTATIONAL STRUCTURES: Normal gestational sac containing a yolk sac is identified within the endometrial cavity. Mean sac diameter 0.8 cm, too small to calculate projected gestational age. Embryonic pole not visualized. Uterus: 8.9 x 5.3 x 5.9 cm, volume 146.4 cc. Retroverted. No masses. No abnormalities of the cervix. RIGHT OVARY: Size: 2.3 x 1.5 x 1.0 cm, volume 1.7 cc. Morphology: Normal echotexture. No pathologic cysts or mass. Normal color Doppler appearance. LEFT OVARY: Size: 2.5 x 2.1 x 2.4 cm, volume 6.6 cc. Morphology: Normal echotexture. No pathologic cysts or mass. Small corpus luteum. Normal color Doppler appearance. FREE FLUID: None. IMPRESSION: Intrauterine as evidenced by a gestational sac containing a yolk sac, mean sac diameter 0.8 cm. Embryonic pole not visualized, presumably normal given early stage of , but continued ultrasound follow-up recommended. Normal ovaries. WSN: [id number] Ordering Physician: Margarita Kerr Dictated By: Ruslan Barrientos MD Dictated Date/Time: 10/25/22 1:47 pm Reviewed By: Ruslan Barrientos MD Signed By: Ruslan Barrientos MD Signed Date/Time: 10/25/22 1:47 pm Transcribed By: TIMMY Transcribed Date/Time: 10/25/22 1:34 pm Vital Signs Most recent to oldest [Reference Range]: 1 2 3 Weight 94.7 kg (10/25/22 11:10 AM) Oxygen Saturation [94-100 %] 100 % (10/25/22:23 AM) 100 % (10/25/22 11:16 AM) 100 % (10/25/22 11:10 AM) Pulse Rate [55-90 bpm] 78 bpm (10/25/22:23 AM) 76 bpm (10/25/22 11:16 AM) 77 bpm (10/25/22 11:10 AM) Blood Pressure [90-138/55-84 mm Hg] 106/50mm Hg (10/25/22:23 AM) 106/50mm Hg (10/25/22 11:16 AM) 105/54mm Hg (10/25/22 11:10 AM) Respiratory Rate [16-30 br/min] 20 br/min (10/25/22 11:16 AM) 18 br/min (10/25/22 11:10 AM) Temperature [96.8-100.4 DegF] 98 DegF (10/25/22 11:10 AM) Liters per Minute 20 L/min (10/25/22:23 AM) Mode of Delivery (Oxygen) Room air (10/25/22:23 AM) Room air (10/25/22 11:16 AM) Room air (10/25/22 11:10 AM) Blood pressure sites Arm, right (10/25/22 11:23 AM) Arm, left (10/25/22 11:16 AM) Arm, right 1 (10/25/22 11:10 AM) Temperature Route Oral (10/25/22 11:10 AM) Dry Weight 94.7 kg (10/25/22 11:10 AM) Weight Obtained Via Standing scale (10/25/22 11:10 AM) Dry Weight Obtained Via Standing scale (10/25/22 11:10 AM) 1Result Comment: right upper arm measured 32cm Social History Social History Type Response Smoking Status Never (less than 100 in lifetime) entered on: 09/06/22 Sex Female History and physical note * Margarita Kerr DO: PERFORM Event Display: History and Physical Hospital Authored Date: [id number] Patient: ??HERLINDA SUAREZ ? Age:??32 Years?Sex:??Female?:??1990?? OB Reason for Admission OB Reason for Admission?? No qualifying data available. LMP/EGA/JIHAN Gestational Age (EGA) and JIHAN? * Note: EGA calculated as of 10/25/2022 ?? JIHAN:??06/28/2023?EGA*:??4 weeks 6 days ? History?(3,0,0,3)?Method:??Last Menstrual Period??(09/21/2022) History of Present Illness Herlinda is a 32 year old at 4 weeks and 6 days gestation by LMP (September 21, 2022)??who presentswith left lower quadrant pain.?? She states that she has had 3 days of left lower quadrant pain that started out as dull but has become sharp.?? The pain was intermittent, but today has become constant.?? The pain is currently at a 4 out of 10.?? Pain does not radiate anywhere else.?? She denies any vaginal bleeding, vaginal discharge,??burning with urination,??chest pain, shortness of breath, ordizziness. ??This is unplanned,??and she is unsure if she wants to continue at this time.SHe states that her periods are reliable. She usually gets OB care at [facility]. ?? Past medical history:??Hypothyroidism, migraine, SARAHY Past??surgical history:??Ureteral stent Allergies: None Medications: Levothyroxine Social history:??Denies any alcohol, tobacco, or recreational drug use ?? OB history: 3 term vaginal deliveries?? Review of Systems Constitutional:??Denies fever or chills, weakness, fatigue. HEENT:??Denies headache, dizziness. Cardiovascular: Denies??chest pain or palpitations. Respiratory:??Denies shortness of breath, cough Gastrointestinal: Reports abdominal pain, bloating,??and diarrhea for 3 days.??Denies N/V, constipation ENTERPRISE BUSINESS ARCHITECT: Denies vaginal pain, discharge, bleeding, lesions. Ext: Denies LE swelling or calf pain. Physical Exam Vitals & Measurements T:??98?F?? HR:??78??(Peripheral)?? RR:??20?? BP:??106/50?? SpO2:??100%?? WT:??94.7??kg?? General: pleasant, alert, cooperative, NAD HEENT: Normocephalic/atraumatic Cardiac: RRR, S1&2, no murmurs Respiratory: Equal air entry bilaterally with symmetrical chest wall movements, no crackles or wheeze Abdominal: Soft, non-distended,?? mildly tender to palpation in LLQ. No masses or??organomegaly appreciated. No guarding or rebound. Remodeler: Speculum: Normal appearing perineum, vulva, urethral meatus, vaginal and cervical mucosa, no lesions appreciated, no blood in vaginal??vault. No bleeding, clot or tissue noted from??cervical os, os visually closed,??multiparus-appearing cervix. Bimanual: Cervix closed, small, retroverted and mobile uterus. No CMT.??No adnexal fullness. No adnexal tenderness with abdominal hand. Extremities: Symmetrical muscle bulk, no visible erythema or edema.?? Psych: Mood and affect stable, appearance appropriate, good eye contact, talkative Assessment/Plan Assessment:??Patient is a 32 year old at 4 weeks and 6 days gestation by LMP (September 21, 2022) who presents with left lower quadrant pain. She is Rh positive. Vitals are??Normal.?She has no bleeding on exam today.??However, given her pain and of unknown location, a formal ultrasound was obtained??and showed an intrauterine gestational sac and yolk sac, confirming intrauterine .??We discussed that her pain may be caused by??a physiologic corpus luteum cyst.??She is also currently experiencing GI symptoms, and her pain may be related to her diarrhea.??She would like to??obtain care with [facility].??She was advised to return with any??vaginal bleeding, increasing pain,??chest pain, shortness of breath, dizziness, fevers, or chills.??She was advised to continue to hydrate well with fluids at home given her diarrhea. ?? Abdominal pain (R10.9):? -IUP confirmed ?? Diarrhea (R19.7):? -discussed hydrating with fluids ?? (Z34.90):? -follow up with [facility] for care ?? Patient seen and plan discussed with Dr. Polo, attending physician. OB History History?(3,0,0,3)? # 1 ?Baby 1 ?Outcome Date:??08/09/2007?Outcome or Result:??Vaginal ?Gest Age:??Fullterm ? Outcome:??Live ? Sex:??Male ?? # 2 ?Baby 1 ?Outcome Date:??02/18/2014?Outcome or Result:??Vaginal ?Gest Age:??Fullterm ? Outcome:??Live ? Sex:??Female ?? # 3 ?Baby 1 ?Outcome Date:??09/16/2016?Outcome or Result:??Vaginal ?Gest Age:??Fullterm ? Outcome:??Live ? Sex:??Female Labs Labs Labs & Tests Antibody Screen: Negative (10/25/22) Blood Type: O Positive (10/25/22) Creatinine-Blood: 0.7 mg/dL (09/23/22) Hct: 40.9 % (10/25/22) Hgb: 13.6 Gm/dL (10/25/22) Problem List Active Active Problem List Acquired Hypothyroidism: (Medical) Chronic low back pain: (Medical) Excessive weight gain: (Medical) Andra thyroiditis: (Medical) Migraine: (Medical) Possible SARAHY (obstructive sleep apnea): (Medical) : (Obstetric) (09/21/22) Severe obesity (BMI 35.0-39.9) with comorbidity: (Medical) Procedure/Surgical History Stent Home Medications Cetirizine: 10 mg = 1 tablet, By Mouth, Daily, PRN (for allergy symptoms) Levothyroxine: 1 tablet, By Mouth, Daily Multivitamin, : 1 capsule, By Mouth, Daily Allergies No Known Medication Allergies Social History Alcohol Use: Never. Electronic Cigarette/Vaping Electronic Cigarette Use: Never. 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 Exercise Self assessment: Fair condition. Other: Walking. Home/Environment Living situation: Home/Independent. Lives with: Children. Nutrition/Health Diet: Regular. Sexual Sexually involved in last 6 months: Yes. Gender identity: Identifies as female. Self described orientation: Straight or heterosexual. Preferred pronoun: She/her. Substance Abuse Use: Never. Tobacco Use: Never (less than 100 in lifetime). Family History Mother: Diabetes mellitus; Heart attack Plan No Data Found Note * Guerita Larsen RN: PERFORM Event Display: Discharge/Transfer Note Hospital Authored Date: [id number] Nursing Discharge Note Entered On: 10/25/2022 14:18 EDT Performed On: 10/25/2022 14:18 EDT by Guerita Larsen RN Nursing Discharge Note 2 Discharge Time : 10/25/2022 14:18 EDT Discharge Level of Care at Discharge : Home/Intermediate/Foster Care Patient Left Unit Via : Ambulatory Patient Accompanied Off Unit with : Other: self DC Instructions Provided & Signed by Pt : Yes Patient Understands D/C Instructions : Yes Patient Instructions Discharge Signed : Yes Did Pt have Specialty Bed or Wound Vac : No Guerita Larsen RN - 10/25/2022 14:18 EDT * Guerita Larsen RN: PERFORM Event Display: Patient Education/Instruction Authored Date: [id number] Inpatient Adult Discharge Instructions [address] [address] Name: HERLINDA SUAREZ : 1990 Visit: 10/25/2022 10:42:00 Current Date: 10/25/2022 14:11 Account: [id number] Inpatient Adult Discharge Instructions We would like [...] and their families. Surveys are administered by [employer] ?? If further treatment with your primary care physician or another doctor is recommended, it is important for you to keep the appointment. Call your primary care physician or return to the Emergency Department immediately if your condition worsens, fails to improve, or new symptoms develop. If you need to find a doctor, you can call [facility] [employer] for a referral at [phone] or toll free at [phone]) or log in to [email or web address].. ?? You can view and manage your care through the patient portal or by using a health care mayela of your choosing. [employer] is a website that allows you to securely view your medical information including your hospital discharge summary, office visit summaries, medications and follow-up visits. You can also request appointments, renew medications, and request access to your medical information using a health care mayela of your choosing, or just ask a question. You can enroll at [email or web address] or register during your next office visit. You have been discharged from [facility], Patient Care Unit: [id number]. If you have any questions regarding these instructions after you leave, please call us and we will be happy to assist you. [facility] Your Care Team Attending Physician Marylin RICH, Jimmie Shaffer Tests Performed Below is a partial list of the tests performed during your hospitalization. You may have had other tests and procedures not included in this list. Please discuss all test results with your provider. Beta HCG Serum (Females Only) CBC Type and Screen US Transabd 1st Trimester Only US Uterus Transvaginal Primary Care Provider Brad RICH, Huber Forrester Advance Directive Health Care Proxy on File No Discharge Vitals Temperature: 98 DegF Weight: 94.7 kg Pulse Rate: 78 bpm ?? Respiratory Rate: 20 br/min ?? Systolic Blood Pressure: 106 mm Hg ?? Diastolic Blood Pressure:??50 mm Hg??Low ?? Oxygen Saturation: 100 % ?? Studies Pending All tests and labs ordered during this hospital stay have been completed unless listed below. Please discuss all pending results with your provider listed above in these instructions. ?? No incomplete studies found What to do next Instructions From Your Doctor Discharge Orders You Need to Schedule the Following Appointments Follow Up with??Josselyn Whitlock MD Why: Please establish care with OB Provider. Information provided for [facility]. Call with any additional concerns or questions. Where: [address] [place] [address] [place] [address]- Discharge Medications HERLINDA SUAREZ :1990 Visit Date:10/25/2022 Medications: Please continue your medications until treatment is completed or stopped by your provider. Medications not listed below should be discontinued. Discuss any questions related to medications with your provider. What How Much When Instructions Next Dose Unchanged Cetirizine (ZyrTEC 10 mg oral tablet) 1 tab(s) Oral Daily as needed for for allergy symptoms Unchanged Levothyroxine (levothyroxine 0.1 mg oral tablet) 1 tab(s) Oral Daily Duration: 90 Days Unchanged Multivitamin, ( Multivitamins with Vitamin B Complex, Vitamin C, Minerals and L-Methylfolate oral capsule) 1 capsule Oral Daily Duration: 90 Days Test Results Below is a partial list of the most recent Laboratory test results done prior to this discharge. You may have had other tests and procedures not included in this list. Please discuss all test resultswith your provider. Beta HCG Serum (Females Only) (10/25/2022) ???Blood - 5484 mIU/mL CBC (10/25/2022) ???WBC - 5.7 k/mm3???RBC - 4.69 m/mm3???Hgb - 13.6 Gm/dL???Hct - 40.9 %???MCV - 87.2 femtoliters???MCH - 29.0 pg???MCHC - 33.3 g/dL???Platelet Count - 209 k/mm3???RDW-SD - 43.0 femtoliters???MPV - 10.7 femtoliters???Nucleated RBC (Automated) - 0.0 #/100 WBC'S???Abs. NRBC - 0.0 k/mm3 Type and Screen (10/25/2022) ???Antibody Screen - Negative Allergies (NKA means No Known Allergies) No Known Medication Allergies Problems Active Problems??(8) Acquired Hypothyroidism?? Chronic low back pain?? Excessive weight gain?? Andra thyroiditis?? Migraine?? Possible SARAHY (obstructive sleep apnea)? Severe obesity (BMI 35.0-39.9) with comorbidity?? Education Materials Below is the list of Educational Leaflet Providered with your Discharge Instructions. Adapting to : First Trimester?? Valuables and Belongings I fully understand and agree that [facility] accepts no responsibility for all my [...] encouraged to send valuables and belongings home. ? Other Discharge Information ? Pulmonary Rehab Status?? Pulmonary Rehab Discharge Status?? Respiratory Rate: 20 br/min ? Common Emergency Awareness Tips IS [...] are strongly encouraged to quit. Please call [facility] [employer] at [phone] or [phone] ([phone]) or log in to [email or web address] for referrals to smoking cessation programs. ?? 883 Suicide & Crisis Lifeline is available 23/09 if you or someone you know needs to find a reason to keep living. By calling 638 you'll be connected to a skilled, trained counselor at a crisis center in your area. INPATIENT DISCHARGE INSTRUCTIONS SIGNATURE PAGE HERLINDA SUAREZ Location:[facility] Registration Date and Time:10/25/2022 10:42 EDT Primary Care Physician: Brad RICH, Huber Forrester, Attending Physician: Jimmie Coulter MD, I HERLINDA SUAREZ, have received the above patient education materials/instructions and have verbalized understanding. If ambulance or transport services are being used I further acknowledge being given a choice of service. ?? If you need to contact me, please call me at this number: . Patient/Logistics And Planning Manager Name: Patient/Logistics And Planning Manager Signature: Relationship to Patient: Witness Name/Signature: Date: * Guerita Larsen RN: PERFORM Event Display: Patient Education Leaflets Authored Date: [id number] Adapting to : First Trimester ?? [address] Adapting to : First Trimester As your body adjusts during your first trimester of , you may have to change or limit yourdaily activities. You???ll need more rest. You may also need to use the energy you have more wisely. Your changing body Almost every part of your body is affected as you adapt to . The uterus and cervix will start to soften right away. You may not look very during the first 3 months. But you are likely to have some common signs of early : ??? Nausea ??? Fatigue ??? Frequent urination ??? Mood swings ??? Bloating of the belly ??? Constipation ??? Heartburn ??? Missed or light periods (first trimester bleeding) ??? Nipple or breast tenderness and breast swelling ?? It???s not too late to start good habits What matters most is protecting your baby from this moment on. If you smoke, drink alcohol, or use drugs, now is the time to stop. If you need help, talk with your healthcare provider: ??? Smoking increases the risk of stillbirth??or having a [id number] baby. If you smoke, quit now. ??? Alcohol and drugs have been linked with miscarriage, defects, intellectual disability, and low weight. Don't drink alcohol or take drugs. ?? Tips to relieve nausea During , nausea can happen at any time of the day, but it may be worse in the morning. To help prevent nausea: ??? Eat small, light meals at frequent intervals. ??? Drink fluids often. ??? Get up slowly. Eat a few unsalted crackers before you get out of bed. ??? Avoid smells that bother you. ??? Avoid spicy and fatty foods. ??? Eat an ice pop??in your favorite flavor. ??? Get plenty of rest. ??? Ask your healthcare provider about taking betty or vitamin B6 for nausea and vomiting. ???Talk with your healthcare provider if you take vitamins that upset your stomach. ?? Work concerns The end of the first trimester is a good time to discuss working during with your employer. Follow your healthcare provider???s advice if your job needs you to stand for a long time, work with hazardous tools, or even sit at a desk all day. Your workspace, workload, or scheduled hours mayneed to be adjusted. Perhaps you can change body postures more often or take an extra break. ?? Advice for travel Talk to your healthcare provider first, but the second trimester may be the best time for any travel. You may be advised to avoid certain trips while you???re . Food and water can be concernsin developing countries. Travel by car is a good choice, as you can stop, get out, and stretch. Bring snacks and water along. Fasten the lap belt below your belly, low over your hips. Also be sure to wear the shoulder harness. ?? Intimacy Unless your healthcare provider tells you to, there's no reason to stop having sex while you???re . You or your partner may notice changes in desire. Desire may be less in the first trimesterdue to nausea and fatigue. In the second trimester, sex may be very enjoyable. The third trimester can be a challenge comfort-alvarado. Try different positions and see what???s best for you both. ?? How daily issues affect your health Many things in your daily life impact your health. This can include transportation, money problems,housing, access to food, and children's nursery assistant. If you can???t get to medical appointments, you may not receive the care you need. When money is tight, it may be difficult to pay for medicines. And living far from a grocery store can make it hard to buy healthy food. If you have concerns in any of these or other areas, talk with your healthcare team. They may know of local resources to assist you. Or they may have a staff person who can help. ?? Last Reviewed Date: 2022 ?? [employer]. All rights reserved. This information is not intended as a substitute for professional medical care. Always follow your healthcare professional's instructions. ?? Patient Care team information Care Team Personnel Name: Huber Salinas MD Position: S Resident Member Role: PCP Address: Address: [address] [place] [address] [place] [address]- Care Team Related Persons Name: NEEMA MCGHEE Address: home [address] [place] [address]
--- OUTSIDE RECORDS SUMMARY | 2023-09-25 13:45 | XMS_ITS | Continuity of Care Document ---
Author Organization [facility] ter Address [address] [place] [address]- Care Team Providers Care Director Business Name Role Phone Huber Salinas MDpushpa Primary Care Physician En[place] [facility] [place](s): 04/25/23 - 04/25/[address] [address] Discharge Disposition: A-D/C Home Attending Physician: Gregg RICH [OB], Marylou Berry Admitting Physician: Gregg RICH [OB]Marylou Referring Physician: Gregg RICH [OB], Marylou Berry Allergies, Adverse Reactions, Alerts No Known Medication [...] Replace Required Details, Route to Pharmacy Electronically, [facility] #[id number], Partial fill upon pa... Start Date: 12/27/22 Status: Ordered ferrous sulfate 325 mg oral enteric coated tablet 325 mg, 1, tablet, By Mouth, Daily, # 90 tablet, Refills 3, Tot. Refills 3, Maintenance, 04/17/23 11:02:00 EST, Route to Pharmacy Electronically, [facility] #[id number], Partial fill upon patient request if the prescription is for a schedule II o... Start Date: 04/17/23 Status: Ordered levothyroxine 137 mcg (0.137 mg) oral capsule 1 capsule = 137 mcg, By Mouth, Daily, # 30 capsule, 11 Refills, Maintenance, 02/21/23 15:47:00 EST,Capsule, [facility] #[id number], Partial fill upon patient request if the prescription is for a schedule II opioid drug., 156.6, cm, 02/21/23 10:1... Start Date: 02/21/23 Status: Ordered Multivitamins with Vitamin B Complex, Vitamin C, Minerals and L- Methylfolate oral capsule 1 capsule, By Mouth, Daily, # 90 capsule, 5 Refills, Maintenance, 09/11/22 17:02:00 EDT, Capsule, [facility] #[id number], Partial fill upon patient request if the prescription is for a schedule II opioid drug., 1 capsule By Mouth Daily,x90 days,... Start Date: 09/11/22 Stop Date: 03/04/24 Status: Ordered pyridoxine 25 mg oral tablet 1 tablet = 25 mg, By Mouth, 3 times a day, PRN Nausea & Vomiting, # 30 tablet, 0 Refills, Maintenance, 11/27/22 16:46:00 EDT, Tablet, [facility] #[id number], Partial fill upon patient request if the prescription is for a schedule II opioid drug.,... Start Date: 11/27/22 Status: Ordered ursodiol 300 mg oral capsule 300 mg, 1, capsule, By Mouth, 3 times a day, # 90 capsule, Refills 3, Tot. Refills 3, Maintenance, 04/15/23 10:22:00 EST, Route to Pharmacy Electronically, [facility] #[id number], Partial fill upon patient request if the prescription is for a sujit... Start Date: 04/15/23 Status: Ordered ZyrTEC 10 mg oral tablet 1 tablet = 10 mg, By Mouth, Daily, PRN for allergy symptoms, # 30 tablet, 4 Refills, Maintenance, 09/06/22 11:37:00 EDT, Tablet, [facility] #[id number], Partial fill upon patient request if the [...] (BMI 35.0-39.9) with comorbidity Confirmed Active Results Orders for Microbiology Reports Name Date Urine Culture 04/25/23 Microbiology Reports TEST:Urine Culture STATUS:Auth (Verified) BODY SITE: SOURCE:URINE COLLECTED DATE/TIME:04/25/23 4:30 AM Urine Culture SPECIMEN DESCRIPTION : URINE CLEAN CATCH/MIDSTREAM SPECIAL REQUESTS : NONE CULTURE : <10,000 COL/ML REPORT STATUS : FINAL 04/26/2023 Radiology Reports * Exam Date Time Procedure Performing Provider Status 04/25/23 6:43 AM US Retroperitoneum Comp Karen Padilla; Auth (Verified) Notes: (US Retroperitoneum Comp) Reason For Exam: Pain RESULT: US Retroperitoneum Comp US Retroperitoneum Comp INDICATION/CLINICAL QUESTION: Reason: Pain; Clinical Question(s): Other:; Kidney stones; Order Comment: US Retroperitoneum Complete Prep / Other:. Patient Age 33 years COMPARISON: None. FINDINGS: Right kidney: 11.9 cm in length. The transverse diameter of the renal pelvis measures 1.8 cm, within normal limits. Normal parenchymal thickness and echotexture. No stones. No suspicious mass. Left kidney: 12.0 cm in length. The transverse diameter of the renal pelvis measures 1.6 cm, which is above normal limits. Normal parenchymal thickness and echotexture. No stones. No suspicious mass. Urinary bladder: Normal morphology. No stone, mass, wall thickening or debris. Other findings: Incidental note of a gallstone near the gallbladder neck measuring 1.8 cm. IMPRESSION: Left hydronephrosis. Expected fullness of the right collecting system. Incidental 1.8 cm gallstone. I have personally reviewed the images and I agree with this report. WSN: [id number] Ordering Physician: Jocelynn Meraz Dictated By: Garth Justin MD Dictated Date/Time: 04/25/23 7:18 am Reviewed By: Chintan Sanchez MD Signed By: Chintan Sanchez MD Signed Date/Time: 04/25/23 7:23 am Transcribed By: TIMMY Transcribed Date/Time: 04/25/23 7:04 am Vital Signs Most recent to oldest [Reference Range]: 1 Blood pressure sites Arm, right (04/25/23 4:04 AM) Temperature Route Oral (04/25/23 4:04 AM) Social History Social History Type Response Smoking Status Never (less than 100 in lifetime) entered on: 09/06/22 Sex Female Note * Michelle Lawrence RN: PERFORM Event Display: Discharge/Transfer Note Hospital Authored Date: [id number] Nursing Discharge Note Entered On: 04/25/2023 10:39 EST Performed On: 04/25/2023 10:38 EST by Michelle Lawrence RN Nursing Discharge Note 2 Discharge Time : 04/25/2023 10:36 EST Discharge Level of Care at Discharge : Home/Residential/Foster Care Patient Left Unit Via : Ambulatory Patient Accompanied Off Unit with : Other: self DC Instructions Provided & Signed by Pt : Yes Patient Understands D/C Instructions : Yes Patient Instructions Discharge Signed : Yes Did Pt have Specialty Bed or Wound Vac : No Michelle Lawrence RN - 04/25/2023 10:38 EST * Michelle Lawrence RN: PERFORM Event Display: Patient Education/Instruction Authored Date: [id number] Inpatient Adult Discharge Instructions. [address] [address] Name: HERLINDA SUAREZ : 1990?? Visit: 04/25/2023 03:54?? Current Date: 04/25/2023 10:25 ?? Account: [id number]?? Inpatient Adult Discharge Instructions We would like [...] and their families. Surveys are administered by [employer] ?? If further treatment with your primary care physician or another doctor is recommended, it is important for you to keep the appointment. Call your primary care physician or return to the Emergency Department immediately if your condition worsens, fails to improve, or new symptoms develop. If you need to find a doctor, you can call [facility]OLLEGE Link for a referral at [phone] or toll free at [email or web address].pro ([phone]) or log in to [email or web address].. ?? [facility], in keeping with [facility] guidance, no longer requires face masks [...] a health care mayela of your choosing. [employer] is a website that allows you to securely view your medical information including your hospital discharge summary, office visit summaries, medications and follow-up visits. You can also request appointments, renew medications, and request access to your medical information using a health care mayela of your choosing, or just ask a question. You can enroll at [email or web address] or register during your next office visit. You have been discharged from [facility], Patient Care Unit: [id number]??. If you have any questions regarding these instructions, including results of studies pending, afteryou leave, please call us and we will be happy to assist you 23/09. [facility] Your Care Team Attending Physician Gregg RICH [OB]Marylou?? Consulting Providers Gregg RICH [OB]Marylou?? Your Diagnosis Anemia FHx: genetic disorder Genital HSV Andra thyroiditis History of kidney stones labor Severe obesity (BMI 35.0-39.9) with comorbidity Tests Performed Below is a partial list of the tests performed during your hospitalization. You may have had other tests and procedures not included in this list. Please discuss all test results with your provider. Complete Urinalysis Retroperitoneum Comp US Urine Culture?? Primary Care Provider Brad RICH, Huber Forrester? Advance Directive Patient has a Designated Caregiver: No Studies Pending All studies ordered during this hospital stay have been completed unless listed below. Please discuss all pending results with your provider listed above in these instructions. ?? Urine Culture?? What to do next Instructions From Your Doctor ?? Orders?? Scheduled Follow-Up Appointments Friday 10:20 AM EST ?? With: Klapana Alfaro CNM Where: [facility] [place] [address]- Status: Pending Friday 8:40 AM EDT ?? With: Kalpana Alfaro CNM Where: [facility] [address] [place] [address]- Status: Pending Friday 8:40 AM EDT ?? With: Kalpana Alfaro CNM Where: [facility] [address] [place] [address]- Status: Pending Friday 8:40 AM EDT ?? With: Carlos Aguayo MDantha Where: [facility] - [address] [address]- Status: Pending Friday 10:00 AM EDT ?? With: Josselyn Whitlock MD Where: [facility] - [address] [address]- Status: Pending Friday 10:00 AM EDT ?? With: Michelle Garrido Where: [facility] - [facility] [address] [place] [address]- Status: Pending Friday 10:00 AM EDT ?? With: Michelle Garrido Where: [facility] - [address] [address]- Status: Pending FridayJul.03, 2024 10:00 AM EDT ?? With: Michelle Garrido Where: [facility] [address] [place] [address]- Status: Pending Discharge Medications HERLINDA SUAREZ :1990 Visit Date:04/25/2023 Medications: Please continue your medications until treatment [...] Please discuss all test resultswith your provider. Complete Urinalysis (04/25/2023) ???Appear/Color, Urine - LIGHT YELLOW???Specific [place], Urine - 1.016???pH, Urine - 6.5???Albumin, Urine - TRACE???Glucose, Urine - NEGATIVE???Ketones, Urine - NEGATIVE???Bilirubin, Urine - NEGATIVE???Hemoglobin, Urine - 3+???Nitrite, Urine - NEGATIVE???Leukocyte, Urine - NEGATIVE???Urobilinogen - NORMAL? ?WBC's, Urine - 1 /HPF? ?RBC's, Urine - >182 /HPF? ?Bacteria - SLIGHT? ?Squamous Epith - <1 /HPF? ?Mucus - SLIGHT Allergies (NKA means No Known Allergies) No [...] Discharge Instructions. [employer] Patient Education - Kick Counts?? [employer] Patient Education - Comfort Tips During ?? [employer] Patient Education - Adapting to : Third Trimester?? Valuables and Belongings I fully understand and agree that [facility] accepts no responsibility for all [...] to send valuables and belongings home. ? Common Emergency Awareness Tips IS IT [...] are strongly encouraged to quit. Please call [facility]GE Link at [phone] or 9-429-579MyTraining.pro ([phone]) or log in to [email or web address] for referrals to smoking cessation programs. ?? 198 Suicide & Crisis Lifeline is available 23/09 if you or someone you know needs to find a reason to keep living. By calling 306 you'll be connected to a skilled, trained counselor at a crisis center in your area. INPATIENT DISCHARGE INSTRUCTIONS SIGNATURE PAGE HERLINDA SUAREZ Location:[facility] Registration Date and Time:04/25/2023 03:54 EST Primary Care Physician: Huber Salinas MD [facility], Attending Physician: Gregg RICH [OB], Marylou Berry, I HERLINDA SUAREZ, have received the above patient education materials/instructions and have verbalized understanding. If ambulance or transport services are being used I further acknowledge being given a choice of service. ?? If you need to contact me, please call me at this number: . Patient/Stick Puller Name: Patient/Stick Puller Signature: Relationship to Patient: Witness Name/Signature: Date: * Melinda CHRISTIE, Michelle Lay: PERFORM Event Display: Patient Education Leaflets Authored Date: [id number] Kick Counts ?? [address]392 Kick Counts It???s normal to worry about your baby???s health. Generally, you will feel your baby start to movein your 2nd trimester at around 16 to 24 weeks. Getting to know the pattern of your baby's movements is one way to know what's normal for you and baby. This is called a kick count. Talk with your healthcare provider about kick counts and your specific situation. Always follow your provider's instructions. How to count kicks Here is just one way to do kick counts. Always follow your healthcare provider's instructions. Starting at 28 weeks, count your baby's movements daily. Time how long it takes you to feel 10 kicks, flutters, swishes, or rolls. Ideally, you want to feel at least 10 movements in 2 hours. You will likely feel 10 movements in less time than that. Here are tips for counting kicks: ??? Choose a time when the baby is active, such as after a meal.? Sit comfortably or lie on your side.? The first time the baby moves,??write down??the time.? Count each movement until the baby has moved?? 10??times. This can take from 20 minutes to 2??hours.? If you haven't felt 10 kicks by the end of the second hour, wait a few hours. Then try again. ??? Try to do it at the same time each day. ?? When to call your healthcare provider Follow your provider's instructions about when to call about your baby's movements. Don't hesitate to call if you have concerns. Call your healthcare provider?? right away??if: ??? You do a couple sets of kick counts during the day and your baby moves fewer than 10??times in??2??hours. ??? Your baby moves much less often than on the??days before. ??? You haven't felt your baby move all day. ?? Last Reviewed Date: 2022 ?? 8982-0885 [employer]. All rights reserved. This information is not intended as a substitute for professional medical care. Always follow your healthcare professional's instructions. ?? * Melinda CHRISTIE, Michelle Lay: PERFORM Event Display: Patient Education Leaflets Authored Date: [id number] Comfort Tips During ?? [address] Comfort Tips During can bring discomfort of different kinds. Below are tips for ways to feel better.??Talk with your??healthcare provider before using pain-relieving medicine at any time during your . First trimester tips Easing nausea ??? Get up slowly. Eat a few unsalted crackers before you get out of bed. ??? Stay away from smellsthat bother you. ??? Eat small,??bland, low-fat, high- protein meals at frequent intervals. ??? Sip on water, weak??tea, or clear soft drinks, like betty linus.??Eat ice chips. ??? Try taking vitamin B6. Coping with fatigue ??? Take catnaps when you can. ??? Get regular exercise. ??? Accept help from others. ??? Practice good sleep habits, like going to bed and getting up at the same time each day. Use your bed only forsleep and sex. Calming mood swings ??? Talk about your feelings with others, including other mothers. ??? Limit sugar, chocolate, and caffeine. ??? Eat a healthy diet. Don???t skip meals. ??? Get regular exercise. Soothing headaches ??? Get fresh air and exercise. ??? Relax and get enough rest. ??? Check with your healthcare provider before taking any pain medicines. ?? Second trimester tips ??? To limit ankle swelling, sit with your feet raised or wear support hose. ??? If you have pain in your groin and stomach??(round ligament pain), don't make sudden twisting movements with your body. ??? For leg cramps, flexing your foot often brings immediate relief. Also try massaging your calf in long, downward strokes, or stretching your legs before going to bed. Get enough exercise and wear shoes with flexible soles. Eat foods rich in calcium. ?? Third trimester tips Reducing heartburn ??? Eat small, light meals throughout the day rather than 3 large ones. ??? Sleep with your upper body raised 6 inches. Don???t lie down until 2 hours after you eat. ??? Don't eat greasy, fried, or spicy foods. ??? Don't have citrus fruits or juices. Treating constipation ??? Eat foods high in fiber, such as whole-grain foods, and fresh fruit and vegetables. ??? Drink plenty of water. ??? Get regular exercise. ??? Ask about your healthcare provider about medicines that have docusate or psyllium. Taking care of your breasts ??? Don't use harsh soaps or alcohol, which can make your skin too dry. ??? Wear nursing bras. Theyprovide more support than regular bras and can be used after if you breastfeed. Getting a good night???s sleep ??? Take a warm shower before bed. ??? Sleep on a firm mattress. ???Lie on your side with one leg crossed over the other. ??? Use pillows to support your arms, legs, and belly. ?? Last Reviewed Date: 2022 ?? 1785-5909 [employer]. All rights reserved. This information is not intended as a substitute for professional medical care. Always follow your healthcare professional's instructions. ?? * Melinda CHRISTIE, Michelle Lay: PERFORM Event Display: Patient Education Leaflets Authored Date: [id number] Adapting to : Third Trimester ?? [address] Adapting to : Third Trimester Although common during , some discomforts may seem worse in the final weeks. Simple lifestyle changes can help. Take care of yourself. And ask your partner to help out with small tasks. Limiting leg problems Ways to combat leg issues: ??? Wear support hose all day. ??? Don't wear snug shoes or clothes thatbind, such as tight pants and socks with elastic tops. ??? Sit with your feet and legs raised often. ?? Caring for your breasts Tips to follow include: ??? Wash with plain water. Don't use harsh soaps or rubbing alcohol. They may cause dryness. ??? Wear a nursing bra for extra support. It can also hide any leaks from your nipples. ?? Controlling hemorrhoids Ways to prevent hemorrhoids include: ??? Eat foods that are high in fiber. Also exercise and drink enough fluids. This will reduce constipation and hemorrhoids. ??? Sleep and nap on your side. This limits pressure on the veins??of your rectum. ??? Try not to stand or sit for long periods. ?? Controlling back pain As your body changes during , your back must work in new ways. Back pain has many causes. Physical changes in your body can strain your back and its supporting muscles. Also hormones increase during . This can affect how??your muscles and joints work together. All of these changescan lead to pain. Pain may be felt in the upper or lower back. Pain is also common in the pelvis. Some womenhave sciatica. This is pain caused by pressure on the sciatic nerve running down the back of the leg. Ice or heat may help. Your provider may advise massage therapy or a chiropractor. Sleep on your left side with a pillow between your knees. Use a brace or support device. Ask your provider for speci fic tips and exercises to help control your back pain. ?? Tips to help you rest Good rest and sleep will help you feel better. Here are some ideas: ??? Ask your partner to massageyour shoulders, neck, or back. ??? Limit the errands you do each day. ??? Lie down in the afternoonor after work for a few minutes. ??? Take a warm bath before you go to sleep. ??? Drink warm milk or teas without caffeine. ??? Don't drink coffee, black tea, and cola. ?? Stopping heartburn ??? Don't eat spicy, greasy, fried,??or acidic foods. ??? Eat small amounts more often. Eat slowly. ??? Wait 2 hours after eating before lying down. ??? Sleep with your upper body raised 6 inches. ?? Managing mood swings Ways to manage mood swings include: ??? Know that mood changes are normal. ??? Exercise often, but get plenty of rest. ??? Address any concerns and limit stress. Talking to your partner, other women,or your healthcare provider may help. ?? Dealing with urinary frequency Tips to deal with having to urinate often include: ??? Drink plenty of water all day. But if you drink a lot in the evening, you may have to get up more in the night. ??? Limit coffee, black tea, andcola. ?? How daily issues affect your health Many things in your daily life impact your health. This can include transportation, money problems,housing, access to food, and child watch attendant. If you can???t get to medical appointments, [...] who can help. ?? Last Reviewed Date: 2020 ?? 3099-5063 [employer]. All rights reserved. This information is not intended as a substitute for professional medical care. Always follow your healthcare professional's instructions. ?? Patient Care team information Care Team Personnel Name: Huber Salinas MD Position: [facility] Resident Member Role: PCP Address: Address: [address] [place] [address] [place] [address]- Care Team Related Persons Name: NEEMA MCGHEE Address: home [address] [place] [address]
--- OUTSIDE RECORDS SUMMARY | 2023-09-25 13:45 | XMS_ITS | Continuity of Care Document ---
Author Organization [facility] Address [address] [place] [address]- Care Team Providers Care Mica Miner Name Role Phone Huber Salinas MD Primary Care Physician [place] [facility] [place]13[place] 07/13/[address] [address] Allergies, Adverse Reactions, Alerts No [...] Replace Required Details, Route to Pharmacy Electronically, [facility] #[id number], Partial fill upon pa... Start Date: 12/27/22 Status: Ordered levothyroxine 137 mcg (0.137 mg) oral capsule 1 capsule = 137 mcg, By Mouth, Daily, # 30 capsule, 11 Refills, Maintenance, 02/21/23 15:47:00 EST,Capsule, [facility] #[id number], Partial fill upon patient request if the prescription is for a schedule II opioid drug., 156.6, cm, 02/21/23 10:1... Start Date: 02/21/23 Status: Ordered norethindrone 0.35 mg oral tablet 1 tablet = 0.35 mg, By Mouth, Daily, # 84 tablet, 0 Refills, Maintenance, 06/24/23 6:52:00 EDT, Tablet, [facility] #[id number], Partial fill upon patient request if the prescription is for a schedule II opioid drug., 155, cm, 06/24/23 0:00:00 EDT... Start Date: 06/24/23 Status: Ordered Multivitamins with Vitamin B Complex, Vitamin C, Minerals and L- Methylfolate oral capsule 1 capsule, By Mouth, Daily, # 90 capsule, 5 Refills, Maintenance, 09/11/22 17:02:00 EDT, Capsule, [facility] #[id number], Partial fill upon patient request if the prescription is for a schedule II opioid drug., 1 capsule By Mouth Daily,x90 days,... Start Date: 09/11/22 Stop Date: 03/04/24 Status: Ordered pyridoxine 25 mg oral tablet 1 tablet = 25 mg, By Mouth, 3 times a day, PRN Nausea & Vomiting, # 30 tablet, 0 Refills, Maintenance, 11/27/22 16:46:00 EDT, Tablet, [facility] #[id number], Partial fill upon patient request if the prescription is for a schedule II opioid drug.,... Start Date: 11/27/22 Status: Ordered Slow Fe (as elemental iron) 45 mg oral tablet, extended release 1 tablet = 45 mg, By Mouth, Daily, # 30 tablet, 2 Refills, Maintenance, 05/16/23 9:05:00 EDT, [facility] #[id number], Partial fill upon patient request if the prescription is for a schedule II opioid drug., 155, cm, 05/16/23 8:54:00 EDT, Height,... Start Date: 05/16/23 Status: Ordered ursodiol 300 mg oral capsule 300 mg, 1, capsule, By Mouth, 3 times a day, # 90 capsule, Refills 3, Tot. Refills 3, Maintenance, 04/15/23 10:22:00 EST, Route to Pharmacy Electronically, [facility] #[id number], Partial fill upon patient request if the prescription is for a sujit... Start Date: 04/15/23 Status: Ordered Valtrex 500 mg oral tablet 500 mg, 1, tablet, By Mouth, Every 12 hours, # 60 tablet, Refills 0, Tot. Refills 0, Maintenance, 06/13/23 10:49:00 EDT, Route to Pharmacy Electronically, [email or web address] #[id number], Partial fill upon patient request if the prescription is for a sche... Start Date: 06/13/23 Status: Ordered ZyrTEC 10 mg oral tablet 1 tablet = 10 mg, By Mouth, Daily, PRN for allergy symptoms, # 30 tablet, 4 Refills, Maintenance, 09/06/22 11:37:00 EDT, Tablet, [email or web address] #[id number], Partial fill upon patient request if the [...] Address: Address: [address] [facility] [place] [address]- Care Team Related Persons Name: DUANE MARIE Address: [address] Address: home [address] [address] [place] Name: NEEMA MCGHEE Address: home [address] [place] [address]
--- OUTSIDE RECORDS SUMMARY | 2023-09-25 13:45 | XMS_ITS | Continuity of Care Document ---
Author Organization [facility] Address [address] [place] [address]- Care Team Providers Care Shank Stapler Name Role Phone AlexandreKandi mayer DO Primary Care Physician Encounter [facility] Date(s): 08/19/23 - 09/18/23 [facility] [address] [place] [address]- Allergies, Adverse Reactions, Alerts No Known Medication [...] Replace Required Details, Route to Pharmacy Electronically, [facility] #[id number], Partial fill upon pa... Start Date: 12/27/22 Status: Ordered levothyroxine 137 mcg (0.137 mg) oral capsule 1 capsule = 137 mcg, By Mouth, Daily, # 30 capsule, 11 Refills, Maintenance, 02/21/23 15:47:00 EST,Capsule, [facility] #[id number], Partial fill upon patient request if the prescription is for a schedule II opioid drug., 156.6, cm, 02/21/23 10:1... Start Date: 02/21/23 Status: Ordered norethindrone 0.35 mg oral tablet 1 tablet = 0.35 mg, By Mouth, Daily, # 84 tablet, 0 Refills, Maintenance, 06/24/23 6:52:00 EDT, Tablet, [facility] #[id number], Partial fill upon patient request if the prescription is for a schedule II opioid drug., 155, cm, 06/24/23 0:00:00 EDT... Start Date: 06/24/23 Status: Ordered NuvaRing 0.015 mg-0.120 mg vaginal ring 1 each, Vaginally, Every 28 days, # 3 each, 0 Refills, Maintenance, 08/18/23 8:52:00 EDT, [facility][id number], Partial fill upon patient request if the prescription is for a schedule II opioid drug., 1 each Vaginally Every 28 days, 155, cm, 06... Start Date: 08/18/23 Status: Ordered Multivitamins with Vitamin B Complex, Vitamin C, Minerals and L- Methylfolate oral capsule 1 capsule, By Mouth, Daily, # 90 capsule, 5 Refills, Maintenance, 09/11/22 17:02:00 EDT, Capsule, [facility] #[id number], Partial fill upon patient request if the prescription is for a schedule II opioid drug., 1 capsule By Mouth Daily,x90 days,... Start Date: 09/11/22 Stop Date: 03/04/24 Status: Ordered pyridoxine 25 mg oral tablet 1 tablet = 25 mg, By Mouth, 3 times a day, PRN Nausea & Vomiting, # 30 tablet, 0 Refills, Maintenance, 11/27/22 16:46:00 EDT, Tablet, [facility] #[id number], Partial fill upon patient request if the prescription is for a schedule II opioid drug.,... Start Date: 11/27/22 Status: Ordered Slow Fe (as elemental iron) 45 mg oral tablet, extended release 1 tablet = 45 mg, By Mouth, Daily, # 30 tablet, 2 Refills, Maintenance, 05/16/23 9:05:00 EDT, [facility] #[id number], Partial fill upon patient request if the prescription is for a schedule II opioid drug., 155, cm, 05/16/23 8:54:00 EDT, Height,... Start Date: 05/16/23 Status: Ordered ursodiol 300 mg oral capsule 300 mg, 1, capsule, By Mouth, 3 times a day, # 90 capsule, Refills 3, Tot. Refills 3, Maintenance, 04/15/23 10:22:00 EST, Route to Pharmacy Electronically, [facility] #[id number], Partial fill upon patient request if the prescription is for a sujit... Start Date: 04/15/23 Status: Ordered Valtrex 500 mg oral tablet 500 mg, 1, tablet, By Mouth, Every 12 hours, # 60 tablet, Refills 0, Tot. Refills 0, Maintenance, 06/13/23 10:49:00 EDT, Route to Pharmacy Electronically, [facility] #[id number], Partial fill upon patient request if the prescription is for a sche... Start Date: 06/13/23 Status: Ordered ZyrTEC 10 mg oral tablet 1 tablet = 10 mg, By Mouth, Daily, PRN for allergy symptoms, # 30 tablet, 4 Refills, Maintenance, 09/06/22 11:37:00 EDT, Tablet, [facility] #[id number], Partial fill upon patient request if the [...] Resident Member Role: PCP Address: Address: [address] [place] [address]- Care Team Related Persons Name: MARIEKANDI Address: [id number] Address: home [address] [address] [place] Name: NEEMA MCGHEE Address: home [address] [place] [address]
--- OUTSIDE RECORDS SUMMARY | 2023-09-25 13:45 | XMS_ITS | Continuity of Care Document ---
Author Organization [facility] Address [address] [place] [address]- Care Team Providers Care Customs Inspector Name Role Phone Brad RICH, Huber Forrester Primary Care Physician Encounter [facility] Date(s): 04/16/23 - 05/16/23 [facility] [address] [place] [id number] Allergies, Adverse Reactions, Alerts No [...] Replace Required Details, Route to Pharmacy Electronically, [facility] #[id number], Partial fill upon pa... Start Date: 12/27/22 Status: Ordered ferrous sulfate 325 mg oral enteric coated tablet 325 mg, 1, tablet, By Mouth, Daily, # 90 tablet, Refills 3, Tot. Refills 3, Maintenance, 04/17/23 11:02:00 EST, Route to Pharmacy Electronically, [facility] #[id number], Partial fill upon patient request if the prescription is for a schedule II o... Start Date: 04/17/23 Status: Ordered levothyroxine 137 mcg (0.137 mg) oral capsule 1 capsule = 137 mcg, By Mouth, Daily, # 30 capsule, 11 Refills, Maintenance, 02/21/23 15:47:00 EST,Capsule, [facility] #[id number], Partial fill upon patient request if the prescription is for a schedule II opioid drug., 156.6, cm, 02/21/23 10:1... Start Date: 02/21/23 Status: Ordered Multivitamins with Vitamin B Complex, Vitamin C, Minerals and L- Methylfolate oral capsule 1 capsule, By Mouth, Daily, # 90 capsule, 5 Refills, Maintenance, 09/11/22 17:02:00 EDT, Capsule, [facility] #[id number], Partial fill upon patient request if the prescription is for a schedule II opioid drug., 1 capsule By Mouth Daily,x90 days,... Start Date: 09/11/22 Stop Date: 03/04/24 Status: Ordered pyridoxine 25 mg oral tablet 1 tablet = 25 mg, By Mouth, 3 times a day, PRN Nausea & Vomiting, # 30 tablet, 0 Refills, Maintenance, 11/27/22 16:46:00 EDT, Tablet, [facility] #[id number], Partial fill upon patient request if the prescription is for a schedule II opioid drug.,... Start Date: 11/27/22 Status: Ordered Slow Fe (as elemental iron) 45 mg oral tablet, extended release 1 tablet = 45 mg, By Mouth, Daily, # 30 tablet, 2 Refills, Maintenance, 05/16/23 9:05:00 EDT, [facility] #[id number], Partial fill upon patient request if the prescription is for a schedule II opioid drug., 155, cm, 05/16/23 8:54:00 EDT, Height,... Start Date: 05/16/23 Status: Ordered ursodiol 300 mg oral capsule 300 mg, 1, capsule, By Mouth, 3 times a day, # 90 capsule, Refills 3, Tot. Refills 3, Maintenance, 04/15/23 10:22:00 EST, Route to Pharmacy Electronically, [facility] #[id number], Partial fill upon patient request if the prescription is for a sujit... Start Date: 04/15/23 Status: Ordered ZyrTEC 10 mg oral tablet 1 tablet = 10 mg, By Mouth, Daily, PRN for allergy symptoms, # 30 tablet, 4 Refills, Maintenance, 09/06/22 11:37:00 EDT, Tablet, [facility] #[id number], Partial fill upon patient request if the [...] Team Personnel Name: Huber Salinas MD Position: [facility] Resident Member Role: PCP Address: Address: [address] [facility] [place] [address]- Care Team Related Persons Name: NEEMA MCGHEE Address: home [address] [place] [address]
--- OUTSIDE RECORDS SUMMARY | 2023-09-25 13:45 | XMS_ITS | Continuity of Care Document ---
Author Organization [facility] Address [address] [place] [address]- Care Team Providers Care Roll Sheeting Cutter Name Role Phone Brad RICH, Huber Forrester Primary Care Physician [id number] Date(s): 04/26/23 - 06/01/[address] [address]- Attending Physician: Not on Staff, Attending MD Referring Physician: Kalpana Alfaro CNM Allergies, Adverse Reactions, [...] 0 Refills, Maintenance, 05/30/23 8:40:00 EDT, Tablet, [facility] #[id number], Partial fill upon patient request if the prescription is for a schedule II opioid drug., 155, cm, 05/30/23 8:15... Start Date: 05/30/23 Status: Ordered aspirin 81 mg oral delayed release tablet See Instructions, 2 tablet By Mouth Daily at bedtime, # 60 tablet, Refills 8, Tot. Refills 8, Maintenance, 12/27/22 9:43:00 EDT, Instructions Replace Required Details, Route to Pharmacy Electronically, [facility] #[id number], Partial fill upon pa... Start Date: 12/27/22 Status: Ordered ferrous sulfate 325 mg oral enteric coated tablet 325 mg, 1, tablet, By Mouth, Daily, # 90 tablet, Refills 3, Tot. Refills 3, Maintenance, 04/17/23 11:02:00 EST, Route to Pharmacy Electronically, [facility] #[id number], Partial fill upon patient request if the prescription is for a schedule II o... Start Date: 04/17/23 Status: Ordered levothyroxine 137 mcg (0.137 mg) oral capsule 1 capsule = 137 mcg, By Mouth, Daily, # 30 capsule, 11 Refills, Maintenance, 02/21/23 15:47:00 EST,Capsule, [facility] #[id number], Partial fill upon patient request if the prescription is for a schedule II opioid drug., 156.6, cm, 02/21/23 10:1... Start Date: 02/21/23 Status: Ordered Multivitamins with Vitamin B Complex, Vitamin C, Minerals and L- Methylfolate oral capsule 1 capsule, By Mouth, Daily, # 90 capsule, 5 Refills, Maintenance, 09/11/22 17:02:00 EDT, Capsule, [facility] #[id number], Partial fill upon patient request if the prescription is for a schedule II opioid drug., 1 capsule By Mouth Daily,x90 days,... Start Date: 09/11/22 Stop Date: 03/04/24 Status: Ordered pyridoxine 25 mg oral tablet 1 tablet = 25 mg, By Mouth, 3 times a day, PRN Nausea & Vomiting, # 30 tablet, 0 Refills, Maintenance, 11/27/22 16:46:00 EDT, Tablet, [facility] #[id number], Partial fill upon patient request if the prescription is for a schedule II opioid drug.,... Start Date: 11/27/22 Status: Ordered Slow Fe (as elemental iron) 45 mg oral tablet, extended release 1 tablet = 45 mg, By Mouth, Daily, # 30 tablet, 2 Refills, Maintenance, 05/16/23 9:05:00 EDT, [facility] #[id number], Partial fill upon patient request if the prescription is for a schedule II opioid drug., 155, cm, 05/16/23 8:54:00 EDT, Height,... Start Date: 05/16/23 Status: Ordered ursodiol 300 mg oral capsule 300 mg, 1, capsule, By Mouth, 3 times a day, # 90 capsule, Refills 3, Tot. Refills 3, Maintenance, 04/15/23 10:22:00 EST, Route to Pharmacy Electronically, [facility] #[id number], Partial fill upon patient request if the prescription is for a sujit... Start Date: 04/15/23 Status: Ordered ZyrTEC 10 mg oral tablet 1 tablet = 10 mg, By Mouth, Daily, PRN for allergy symptoms, # 30 tablet, 4 Refills, Maintenance, 09/06/22 11:37:00 EDT, Tablet, [facility] #[id number], Partial fill upon patient request if the [...] Team Personnel Name: Huber Salinas MD Position: [facility] Resident Member Role: PCP Address: Address: [address] [place] [address] [place] [address]- Care Team Related Persons Name: NEEMA MCGHEE Address: home [address] [place] [address]
--- OUTSIDE RECORDS SUMMARY | 2023-09-25 13:45 | XMS_ITS | Continuity of Care Document ---
Author Organization [facility] Address [address] [place] [address]- Care Team Providers Care Fuel Cell Engineer Name Role Phone Brad RICH, Huber Forrester Primary Care Physician [id number] Date(s): 04/14/23 - 05/14/[address] [address] Allergies, Adverse Reactions, Alerts No [...] Replace Required Details, Route to Pharmacy Electronically, [facility] #[id number], Partial fill upon pa... Start Date: 12/27/22 Status: Ordered ferrous sulfate 325 mg oral enteric coated tablet 325 mg, 1, tablet, By Mouth, Daily, # 90 tablet, Refills 3, Tot. Refills 3, Maintenance, 04/17/23 11:02:00 EST, Route to Pharmacy Electronically, [facility] #[id number], Partial fill upon patient request if the prescription is for a schedule II o... Start Date: 04/17/23 Status: Ordered levothyroxine 137 mcg (0.137 mg) oral capsule 1 capsule = 137 mcg, By Mouth, Daily, # 30 capsule, 11 Refills, Maintenance, 02/21/23 15:47:00 EST,Capsule, [facility] #[id number], Partial fill upon patient request if the prescription is for a schedule II opioid drug., 156.6, cm, 02/21/23 10:1... Start Date: 02/21/23 Status: Ordered Multivitamins with Vitamin B Complex, Vitamin C, Minerals and L- Methylfolate oral capsule 1 capsule, By Mouth, Daily, # 90 capsule, 5 Refills, Maintenance, 09/11/22 17:02:00 EDT, Capsule, [facility] #[id number], Partial fill upon patient request if the prescription is for a schedule II opioid drug., 1 capsule By Mouth Daily,x90 days,... Start Date: 09/11/22 Stop Date: 03/04/24 Status: Ordered pyridoxine 25 mg oral tablet 1 tablet = 25 mg, By Mouth, 3 times a day, PRN Nausea & Vomiting, # 30 tablet, 0 Refills, Maintenance, 11/27/22 16:46:00 EDT, Tablet, [facility] #[id number], Partial fill upon patient request if the prescription is for a schedule II opioid drug.,... Start Date: 11/27/22 Status: Ordered ursodiol 300 mg oral capsule 300 mg, 1, capsule, By Mouth, 3 times a day, # 90 capsule, Refills 3, Tot. Refills 3, Maintenance, 04/15/23 10:22:00 EST, Route to Pharmacy Electronically, [facility] #[id number], Partial fill upon patient request if the prescription is for a sujit... Start Date: 04/15/23 Status: Ordered ZyrTEC 10 mg oral tablet 1 tablet = 10 mg, By Mouth, Daily, PRN for allergy symptoms, # 30 tablet, 4 Refills, Maintenance, 09/06/22 11:37:00 EDT, Tablet, [facility] #[id number], Partial fill upon patient request if the [...] recent to oldest [Reference Range]: 1 Height 156.6 cm (04/15/23 10:15 AM) Social History Social History Type Response Smoking Status Never (less than 100 in lifetime) entered on: 09/06/22 Sex Female Patient Care team information Care Team Personnel Name: Brad RICH, Huber Forrester Position: [facility] Resident Member Role: PCP Address: Address: [address] [place] [address] [place] [address]- Care Team Related Persons Name: NEEMA MCGHEE Address: home [address] [place] [address]
--- OUTSIDE RECORDS SUMMARY | 2023-09-25 13:45 | XMS_ITS | Continuity of Care Document ---
Author Organization [facility] Address [address] [place] [address]- Care Team Providers Care Fitter Up Name Role Phone Huber Salinas MD [facility] Primary Care Physician [place] [facility] [place]s): 04/07/23 - 04/14/[address] [address]- Encounter Diagnosis Procedure and treatment not carried out for other reasons(Final) - Discharge Disposition: A-D/C Walkout Attending Physician: Kelly Sawyer MD Admitting Physician: Kelly Sawyer MD Allergies, Adverse Reactions, Alerts No Known [...] Replace Required Details, Route to Pharmacy Electronically, [facility] #[id number], Partial fill upon pa... Start Date: 12/27/22 Status: Ordered levothyroxine 137 mcg (0.137 mg) oral capsule 1 capsule = 137 mcg, By Mouth, Daily, # 30 capsule, 11 Refills, Maintenance, 02/21/23 15:47:00 EST,Capsule, [facility] #[id number], Partial fill upon patient request if the prescription is for a schedule II opioid drug., 156.6, cm, 02/21/23 10:1... Start Date: 02/21/23 Status: Ordered Multivitamins with Vitamin B Complex, Vitamin C, Minerals and L- Methylfolate oral capsule 1 capsule, By Mouth, Daily, # 90 capsule, 5 Refills, Maintenance, 09/11/22 17:02:00 EDT, Capsule, [facility] #[id number], Partial fill upon patient request if the prescription is for a schedule II opioid drug., 1 capsule By Mouth Daily,x90 days,... Start Date: 09/11/22 Stop Date: 03/04/24 Status: Ordered pyridoxine 25 mg oral tablet 1 tablet = 25 mg, By Mouth, 3 times a day, PRN Nausea & Vomiting, # 30 tablet, 0 Refills, Maintenance, 11/27/22 16:46:00 EDT, Tablet, [facility] #[id number], Partial fill upon patient request if the prescription is for a schedule II opioid drug.,... Start Date: 11/27/22 Status: Ordered ZyrTEC 10 mg oral tablet 1 tablet = 10 mg, By Mouth, Daily, PRN for allergy symptoms, # 30 tablet, 4 Refills, Maintenance, 09/06/22 11:37:00 EDT, Tablet, [facility] #[id number], Partial fill upon patient request if the [...] Most recent to oldest [Reference Range]: 1 Weight 107.1 kg (04/07/23 4:16 PM) Oxygen Saturation [94-100 %] 100 % (04/07/23 4:16 PM) Pulse Rate [55-90 bpm] 93 bpm *H* (04/07/23 4:16 PM) Blood Pressure [90-138/55-84 mm Hg] 111/ 57mm Hg (04/07/23 4:16 PM) Respiratory Rate [16-30 br/min] 18 br/mi n (04/07/23 4:16 PM) Temperature [96.8-100.4 DegF] 97.8 DegF (04/07/23 4:16 PM) Mode of Delivery (Oxygen) Room air (04/07/23 4:16 PM) Blood pressure sites Arm, right (04/07/23 4:16 PM) Temperature Route Oral (04/07/23 4:16 PM) Dry Weight 107.1 kg (04/07/23 4:16 PM) Weight Obtained Via Standing scale (04/07/23 4:16 PM) Dry Weight Obtained Via Standing scale (04/07/23 4:16 PM) Social History Social History Type Response Smoking Status Never (less than 100 in lifetime) entered on: 09/06/22 Sex Female Patient Care team information Care Team Personnel Name: Brad RICH, Huber Forrester Position: [facility] Resident Member Role: PCP Address: Address: [address] [facility] [place] [address]- Name: Octavia Aj RN Position: [facility] OB RN Member Role: OB RN Care Team Related Persons Name: NEEMA MCGHEE Address: home [address] [place] [address]
--- OUTSIDE RECORDS SUMMARY | 2023-09-25 13:45 | XMS_ITS | Continuity of Care Document ---
Author Organization [facility] Address [address] [place] [address]- Care Team Providers Care Industrial Cook Name Role Phone Brad RICH, Huber Forrester Primary Care Physician [phone] Encounter [facility] Date(s): 05/22/23 - 06/21/23 [facility] [address] [place] [id number] Allergies, Adverse Reactions, Alerts No Known Medication [...] Replace Required Details, Route to Pharmacy Electronically, [facility] #[id number], Partial fill upon pa... Start Date: 12/27/22 Status: Ordered levothyroxine 137 mcg (0.137 mg) oral capsule 1 capsule = 137 mcg, By Mouth, Daily, # 30 capsule, 11 Refills, Maintenance, 02/21/23 15:47:00 EST,Capsule, [facility] #[id number], Partial fill upon patient request if the prescription is for a schedule II opioid drug., 156.6, cm, 02/21/23 10:1... Start Date: 02/21/23 Status: Ordered Multivitamins with Vitamin B Complex, Vitamin C, Minerals and L- Methylfolate oral capsule 1 capsule, By Mouth, Daily, # 90 capsule, 5 Refills, Maintenance, 09/11/22 17:02:00 EDT, Capsule, [facility] #[id number], Partial fill upon patient request if the prescription is for a schedule II opioid drug., 1 capsule By Mouth Daily,x90 days,... Start Date: 09/11/22 Stop Date: 03/04/24 Status: Ordered pyridoxine 25 mg oral tablet 1 tablet = 25 mg, By Mouth, 3 times a day, PRN Nausea & Vomiting, # 30 tablet, 0 Refills, Maintenance, 11/27/22 16:46:00 EDT, Tablet, [facility] #[id number], Partial fill upon patient request if the prescription is for a schedule II opioid drug.,... Start Date: 11/27/22 Status: Ordered Slow Fe (as elemental iron) 45 mg oral tablet, extended release 1 tablet = 45 mg, By Mouth, Daily, # 30 tablet, 2 Refills, Maintenance, 05/16/23 9:05:00 EDT, [facility] #[id number], Partial fill upon patient request if the prescription is for a schedule II opioid drug., 155, cm, 05/16/23 8:54:00 EDT, Height,... Start Date: 05/16/23 Status: Ordered ursodiol 300 mg oral capsule 300 mg, 1, capsule, By Mouth, 3 times a day, # 90 capsule, Refills 3, Tot. Refills 3, Maintenance, 04/15/23 10:22:00 EST, Route to Pharmacy Electronically, [facility] #[id number], Partial fill upon patient request if the prescription is for a sujit... Start Date: 04/15/23 Status: Ordered Valtrex 500 mg oral tablet 500 mg, 1, tablet, By Mouth, Every 12 hours, # 60 tablet, Refills 0, Tot. Refills 0, Maintenance, 06/13/23 10:49:00 EDT, Route to Pharmacy Electronically, [facility] #[id number], Partial fill upon patient request if the prescription is for a sche... Start Date: 06/13/23 Status: Ordered ZyrTEC 10 mg oral tablet 1 tablet = 10 mg, By Mouth, Daily, PRN for allergy symptoms, # 30 tablet, 4 Refills, Maintenance, 09/06/22 11:37:00 EDT, Tablet, [facility] #[id number], Partial fill upon patient request if the [...] Team Personnel Name: Huber Salinas MD Position: [facility] Resident Member Role: PCP Address: Address: [address] [facility] [place] [address]- Care Team Related Persons Name: NEEMA MCGHEE Address: home [address] [place] [address]
--- OUTSIDE RECORDS SUMMARY | 2023-09-25 13:45 | XMS_ITS | Continuity of Care Document ---
Author Organization [facility] Address [address] [place] [address]- Care Team Providers Care Shank Breaker Name Role Phone Brad RICH, Huber [facility] Primary Care Physician [place] [facility] [place]08[place] - 10/08/22 [facility] [address] [place] [address] Allergies, Adverse Reactions, Alerts No Known Medication Allergies Immunizations Given and Recorded Vaccine Date Status Refusal Reason influenza virus vaccine, inactivated 03/30/19 Give n influenza virus vaccine, inactivated 04/05/15 Give n tetanus/diphtheria/pertussis, acel(Tdap) 07/08/14 Given Medications levothyroxine 0.1 mg oral tablet 1 tablet, By Mouth, Daily, for 90 days, # 90 tablet, 4 Refills, Physician Stop 02/16/23 11:19:00 EST, 11/23/21 11:19:00 EDT, [facility] #[id number], 156.6, cm, 11/23/21 11:09:00 EDT, Height Start Date: 11/23/21 Stop Date: 02/16/23 Status: Ordered Multivitamins with Vitamin B Complex, Vitamin C, Minerals and L- Methylfolate oral capsule 1 capsule, By Mouth, Daily, # 90 capsule, 5 Refills, Maintenance, 09/11/22 17:02:00 EDT, Capsule, [facility] #[id number], Partial fill upon patient request if the prescription is for a schedule II opioid drug., 1 capsule By Mouth Daily,x90 days,... Start Date: 09/11/22 Stop Date: 03/04/24 Status: Ordered ZyrTEC 10 mg oral tablet 1 tablet = 10 mg, By Mouth, Daily, PRN for allergy symptoms, # 30 tablet, 4 Refills, Maintenance, 09/06/22 11:37:00 EDT, Tablet, [facility] #[id number], Partial fill upon patient request if the [...] Name: Brad RICH, Huber Forrester Position: [facility] Resident Member Role: PCP Address: Address: [address] [place] [address] [place] [address]- Care Team Related Persons Name: NEEMA MCGHEE Address: home [address] [place] [address]
--- OUTSIDE RECORDS SUMMARY | 2023-09-25 13:45 | XMS_ITS | Continuity of Care Document ---
Author Organization [facility] Address [address] [place] [phone]- Care Team Providers Care Sql Ssrs Developer Name Role Phone Huber Salinas MDpushpa Primary Care Physician Encounter [facility] [place] Date(s): 03/24/23 - 04/23/23 [facility] [address] [place] [phone]- Allergies, Adverse Reactions, Alerts No Known Medication [...] Replace Required Details, Route to Pharmacy Electronically, [facility] #[id number], Partial fill upon pa... Start Date: 12/27/22 Status: Ordered ferrous sulfate 325 mg oral enteric coated tablet 325 mg, 1, tablet, By Mouth, Daily, # 90 tablet, Refills 3, Tot. Refills 3, Maintenance, 04/17/23 11:02:00 EST, Route to Pharmacy Electronically, [facility] #[id number], Partial fill upon patient request if the prescription is for a schedule II o... Start Date: 04/17/23 Status: Ordered levothyroxine 137 mcg (0.137 mg) oral capsule 1 capsule = 137 mcg, By Mouth, Daily, # 30 capsule, 11 Refills, Maintenance, 02/21/23 15:47:00 EST,Capsule, [facility] #[id number], Partial fill upon patient request if the prescription is for a schedule II opioid drug., 156.6, cm, 02/21/23 10:1... Start Date: 02/21/23 Status: Ordered Multivitamins with Vitamin B Complex, Vitamin C, Minerals and L- Methylfolate oral capsule 1 capsule, By Mouth, Daily, # 90 capsule, 5 Refills, Maintenance, 09/11/22 17:02:00 EDT, Capsule, [facility] #[id number], Partial fill upon patient request if the prescription is for a schedule II opioid drug., 1 capsule By Mouth Daily,x90 days,... Start Date: 09/11/22 Stop Date: 03/04/24 Status: Ordered pyridoxine 25 mg oral tablet 1 tablet = 25 mg, By Mouth, 3 times a day, PRN Nausea & Vomiting, # 30 tablet, 0 Refills, Maintenance, 11/27/22 16:46:00 EDT, Tablet, [facility] #[id number], Partial fill upon patient request if the prescription is for a schedule II opioid drug.,... Start Date: 11/27/22 Status: Ordered ursodiol 300 mg oral capsule 300 mg, 1, capsule, By Mouth, 3 times a day, # 90 capsule, Refills 3, Tot. Refills 3, Maintenance, 04/15/23 10:22:00 EST, Route to Pharmacy Electronically, [facility] #[id number], Partial fill upon patient request if the prescription is for a sujit... Start Date: 04/15/23 Status: Ordered ZyrTEC 10 mg oral tablet 1 tablet = 10 mg, By Mouth, Daily, PRN for allergy symptoms, # 30 tablet, 4 Refills, Maintenance, 09/06/22 11:37:00 EDT, Tablet, [facility] #[id number], Partial fill upon patient request if the [...] Team Personnel Name: Huber Salinas MD Position: [facility] Resident Member Role: PCP Address: Address: [address] [place] [address] [place] [address]- Care Team Related Persons Name: NEEMA MCGHEE Address: home [address] [place] [address]
--- OUTSIDE RECORDS SUMMARY | 2023-09-25 13:45 | XMS_ITS | Continuity of Care Document ---
Author Organization [facility] Address [address] [place] [address]- Care Team Providers Care City Weighmaster Name Role Phone Brad RICH, Huber Cuellarpushpa Primary Care Physician [phone] [place] [facility] [place]): 12/17/22 - 01/16/23 [facility] [address] [place] [phone]- Allergies, Adverse Reactions, Alerts No Known Medication [...] Replace Required Details, Route to Pharmacy Electronically, [facility] #[id number], Partial fill upon pa... Start Date: 12/27/22 Status: Ordered levothyroxine 0.1 mg oral tablet See Instructions, 1 tablet By Mouth from Friday to Friday and two tablets on Friday and Friday, 90 days supply, # 102 tablet, 4 Refills, Physician Stop 01/28/23 8:15:00 EST, 12/17/22 8:14:00 EDT, [facility] #[id number], 156.6, cm, 11/27/22 9:34... Start Date: 12/17/22 Stop Date: 01/28/23 Status: Ordered Multivitamins with Vitamin B Complex, Vitamin C, Minerals and L- Methylfolate oral capsule 1 capsule, By Mouth, Daily, # 90 capsule, 5 Refills, Maintenance, 09/11/22 17:02:00 EDT, Capsule, [facility] #[id number], Partial fill upon patient request if the prescription is for a schedule II opioid drug., 1 capsule By Mouth Daily,x90 days,... Start Date: 09/11/22 Stop Date: 03/04/24 Status: Ordered pyridoxine 25 mg oral tablet 1 tablet = 25 mg, By Mouth, 3 times a day, PRN Nausea & Vomiting, # 30 tablet, 0 Refills, Maintenance, 11/27/22 16:46:00 EDT, Tablet, [facility] #[id number], Partial fill upon patient request if the prescription is for a schedule II opioid drug.,... Start Date: 11/27/22 Status: Ordered ZyrTEC 10 mg oral tablet 1 tablet = 10 mg, By Mouth, Daily, PRN for allergy symptoms, # 30 tablet, 4 Refills, Maintenance, 09/06/22 11:37:00 EDT, Tablet, [facility] #[id number], Partial fill upon patient request if the [...] Personnel Name: Brad RICH, Huber Forrester Position: S Resident Member Role: PCP Address: Address: [address] [place] [address] [place] [address]- Care Team Related Persons Name: NEEMA MCGHEE Address: home [address] [place] [address]
== END 2023-09-25 14:19 | disposition home or self-care (01) ==
LOC: HO.HWS 13:42
PROVIDERS: Visit Provider Obstetrics & Gynecology
DX: N87.0 Mild cervical dysplasia (principal)
CPT/HCPCS: 99211

== ENCOUNTER → 2023-09-25 13:42 | Outpatient (BNVA) | payer OTHER, SELFPAY | PROVIDERS: Visit Provider Obstetrics & Gynecology ==